=== PATIENT | female | born 1930 | race Caucasian/White ===

== ENCOUNTER 2016-12-20 09:47 | Inpatient (IN) | payer OTHER ==
[~2016-12-20] VITALS: Ht 157.5 cm; Wt 79.7 kg
[2016-12-20] VITALS (13 sets, daily range): BP systolic 114–173; BP diastolic 58–97; PULSE 63–78; TEMP 36.5–36.8; O2SAT 95–98; Ht 157.5 cm; Wt 79.7 kg
[~2016-12-20 09:47] MED LIST: ACET-1311 PO; ALL100 PO; ASPEC325 PO; CRG40 PO; OXYC-57 PO; PANT40TA2 PO; RANITAB33 PO; THYR90TA PO
[2016-12-20] MEDS ORDERED: ADENOSINE IV SOLN 3 MG/ML 2 ML VIAL IV STA ×2 (10:03→10:34)
[2016-12-20 10:15] LABS: COMPLETE YES; EOS % 0.1 %; HEMATOCRIT 37.6 % (37-47); IG% 0.2 %; LYMPH % 6.7 %; LYMPH ABS # 0.62 K/uL (1.2-3.4); MEAN CELL VOLUME 92.8 fL (80-100); MEAN CORPUSCULAR HEMOGLOBIN 30.6 pg (25-34); MEAN PLATELET VOLUME 9.4 fL (7.4-10.4); MONO % 5.1 %; NEUT % 87.9 %; PLATELET COUNT 210 K/uL (130-400); RED BLOOD COUNT 4.05 M/uL (4.2-5.4); WHITE BLOOD COUNT 9.24 K/uL (4.8-10.8)
--- NOTE | 2016-12-20 10:23 | DIAGNOSTIC IMAGING REPORT ---
CHEST ONE VIEW PORTABLE CLINICAL HISTORY: Fever. Tachycardia. Sepsis. COMPARISON STUDY: Chest radiograph January 01, 2015 FINDINGS: Lung volumes are normal. There is no pneumothorax or pleural effusion. Cardiomediastinal silhouette is stable. Mild left basilar opacity favors atelectasis. There is no evidence of pulmonary edema. IMPRESSION: 1. No acute cardiopulmonary findings. 2. Mild left basilar opacity which favors atelectasis. Electronically signed by: Forrest Brandon M.D. 12/20/2016 10:22 AM Dictated Date/Time: 12/20/2016 10:21 AM
[2016-12-20 10:24] LABS: INR 1.1 (0.9-1.1); PARTIAL THROMBOPLASTIN RATIO 0.8; PROTHROMBIN TIME (PATIENT) 11.4 SECONDS (9.0-12.0)
[2016-12-20] MEDS ORDERED: METOPROLOL TARTRATE 1 MG/ML VIAL IV STA ×2 (10:32→11:04)
[2016-12-20 10:38] LABS: ALT/SGPT 186 U/L (12-78); AST/SGOT 406 U/L (15-37); BLOOD UREA NITROGEN 25 mg/dl (7-18); BUN/CREATININE RATIO 19.2 (10-20); CALCIUM 9.2 mg/dl (8.5-10.1); CARBON DIOXIDE 28 mmol/L (21-32); CHLORIDE 104 mmol/L (98-107); GLUCOSE 135 mg/dl (70-99); POTASSIUM 3.5 mmol/L (3.5-5.1); SODIUM 139 mmol/L (136-145)
[2016-12-20] MEDS ORDERED: VTMD PO (10:42)
[2016-12-20] MEDS ORDERED: METO-722 PO (10:42)
[2016-12-20] MEDS ORDERED: CYCL0.052 OP (10:42)
[2016-12-20] MEDS ORDERED: HYDR25TA5 PO (10:42)
[2016-12-20] MEDS ORDERED: ASPI1TAB83 PO (10:42)
[2016-12-20] MEDS ORDERED: ALLO100T PO (10:42)
[2016-12-20 10:50] LABS: ALKALINE PHOSPHATASE 385 U/L (45-117); THYROID STIMULATING HORMONE 0.019 uIu/ml (0.300-4.500)
--- NOTE | 2016-12-20 12:20 | Cardiology Consultation ---
Cardiology Consultation Date of Consultation: December 20, 2016. Requesting Physician: Dr. Garland Reason for Consultation: SVT Pt evaluation today including: conversation w/ patient, conversation w/ family , physical exam, lab review, review of studies, review of inpatient medication list, conversation w/ attending History of Present Illness This is a very pleasant 86-year-old woman who has a long history of hypertension , hypothyroidism and palpitations. She had been evaluated in our office several times in the past but is seen intermittently, she was seen in 2011 and then in 2014 and is scheduled for visit this week with Dr. Sommers. Her palpitations have been recorded as being due to premature beats, typically atrial premature beats and periods of atrial tachycardia. Her symptoms seem to correlate with these rhythms in the past, however based on her records she also describes her heart "pumping really hard" which is less frequent than the palpitations. More recently she has been having difficulty with her gallbladder and surgery has been recommended, in fact she has an appointment with Dr. Kahn today for that. In addition however her palpitations have become increasingly worse and she notices a rapid heart rate (which she also describes as her heart pumping very hard) frequently over the last 6 weeks. She doesn't think she had this before, although based on her record she may have. She was seen in [facility] where she was told she had SVT and she would probably need to have it ablated. She has noticed over the last several days that the palpitations are present more often than they're not, and she came into the emergency room today. In the emergency room she was noted to have supraventricular tachycardia which terminated on several occasions with adenosine but restarted. Intravenous beta- blockade (metoprolol 10 mg) helped somewhat with slowing of the rate down to about 120 bpm from 150 and with spontaneous termination but reinitiation occurring. She does not have lightheadedness or dizziness, has not had presyncope or syncope. She does not have chest discomfort. Past Medical/Surgical History (1) Fracture of femur, distal, left, closed (2) Deep vein thrombosis (3) GERD (gastroesophageal reflux disease) (4) H/O: hysterectomy Family History Diabetes mellitus FH: lung disease FHx: cancer Social History Smoking Status: Never Smoker History of Alcohol Use: No Review of Systems Constitutional: No fever, No weakness, No weight loss Respiratory: No cough, No dyspnea on exertion, No shortness of breath, No wheezing Cardiac: + palpitations, + see HPI, No PND, No chest pain, No edema, No orthopnea Abdomen: + nausea, + vomiting, No GI bleeding, No diarrhea, No pain Female : No problem reported Neurologic: No balance problems, No numbness/tingling, No paralysis, No weakness Heme: No abnormal bleeding/bruising, No clotting problems Endo: No fatigue Skin: No problem reported All Other Systems: Reviewed and Negative Allergies Coded Allergies: Atorvastatin (Verified Adverse Reaction, Unknown, unknown, 02/01/15) Diclofenac (Verified Adverse Reaction, Unknown, unknown, 02/01/15) Levofloxacin (Verified Adverse Reaction, Unknown, unknown, 02/01/15) Rofecoxib (Verified Adverse Reaction, Unknown, unknown, 02/01/15) Physical Exam Vital Signs Past 12 Hours Date Time Temp Pulse Resp B/P Pulse Ox O2 Delivery O2 Flow Rate FiO2 12/20/16 11:46 125 16 134/70 98 Room Air 12/20/16 11:30 72 16 163/72 98 Room Air 12/20/16 11:07 128 142/66 12/20/16 11:05 130 12/20/16 11:04 142/66 12/20/16 11:03 82 12/20/16 11:03 121 18 142/66 97 Room Air 12/20/16 11:00 126 26 125/83 97 12/20/16 10:45 131 22 121/79 99 12/20/16 10:44 138 141/68 12/20/16 10:32 142 12/20/16 10:30 88 25 141/68 98 12/20/16 10:29 104 12/20/16 10:20 141 21 96 Room Air 12/20/16 10:04 147 12/20/16 09:52 36.8 154 20 118/80 97 Room Air Constitutional: General Apperance: heathly-appearing Level of Distress: NAD Psychiatric: Mental Status: active & alert Head: normocephalic Eyes: EOM: EOMI ENMT: normal ENT inspection, hearing grossly normal Neck: supple, no masses Lungs: Respiratory effort: no dyspnea, good air movement Auscultation: breath sounds normal, no wheezing Cardiovascular: Heart Auscultation: RRR, no murmurs, no rubs, no gallops, tachycardia Peripheral Pulses: Bruits: none appreciated Abdomen: Bowel Sounds: normal Inspection & Palpation: soft, no tenderness, guarding & rebound, no masses Musculoskeletal: normal strength (5/5 throughout) Extremities: no edema Neurologic: Cranial Nerves: grossly intact Sensation: grossly intact Data Laboratory Results: Last 24 Hours Test 12/20/16 10:05 White Blood Count 9.24 K/uL Red Blood Count 4.05 M/uL Hemoglobin 12.4 g/dL Hematocrit 37.6 % Mean Corpuscular Volume 92.8 fL Mean Corpuscular Hemoglobin 30.6 pg Mean Corpuscular Hemoglobin Concent 33.0 g/dl Platelet Count 210 K/uL Mean Platelet Volume 9.4 fL Neutrophils (%) (Auto) 87.9 % Lymphocytes (%) (Auto) 6.7 % Monocytes (%) (Auto) 5.1 % Eosinophils (%) (Auto) 0.1 % Basophils (%) (Auto) 0.0 % Neutrophils # (Auto) 8.12 K/uL Lymphocytes # (Auto) 0.62 K/uL Monocytes # (Auto) 0.47 K/uL Eosinophils # (Auto) 0.01 K/uL Basophils # (Auto) 0.00 K/uL RDW Standard Deviation 51.1 fL RDW Coefficient of Variation 15.0 % Immature Granulocyte % (Auto) 0.2 % Immature Granulocyte # (Auto) 0.02 K/uL Prothrombin Time 11.4 SECONDS Prothromb Time International Ratio 1.1 Activated Partial Thromboplast Time 21.5 SECONDS Partial Thromboplastin Ratio 0.8 Sodium Level 139 mmol/L Potassium Level 3.5 mmol/L Chloride Level 104 mmol/L Carbon Dioxide Level 28 mmol/L Anion Gap 7.0 mmol/L Blood Urea Nitrogen 25 mg/dl Creatinine 1.30 mg/dl Est Creatinine Clear Calc Drug Dose 30.8 ml/min Estimated GFR () 43.3 Estimated GFR (Non- 37.4 BUN/Creatinine Ratio 19.2 Random Glucose 135 mg/dl Calcium Level 9.2 mg/dl Total Bilirubin 2.7 mg/dl Direct Bilirubin 1.4 mg/dl Aspartate Amino Transf (AST/SGOT) 406 U/L Alanine Aminotransferase (ALT/SGPT) 186 U/L Alkaline Phosphatase 385 U/L Total Creatine Kinase 39 U/L Creatine Kinase MB < 0.5 ng/ml Creatine Kinase MB Ratio Troponin I 0.042 ng/ml Total Protein 7.4 gm/dl Albumin 3.6 gm/dl Lipase 330 U/L Thyroid Stimulating Hormone (TSH) 0.019 uIu/ml EKG: Several electrocardiograms are available for review. In sinus rhythm the electrocardiogram is essentially normal. 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 Telemetry reviewed: Sinus rhythm alternating with periods of SVT, she is spending 50% or more of her time in SVT. Assessment & Plan #1. 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 She describes having a lot of difficulty over the last 6 weeks , she does not recall episodes before but based on her description and our old records she may have had it before on a more sporadic basis. At this time she is in nearly incessant SVT with difficult to control it, she was on metoprolol as an outpatient (although I'm not sure of the dose) and that clearly did not help. We could try ongoing medical therapy but I think it is highly unlikely that we will get control of her arrhythmia. It is certainly not good for her to have this degree of tachycardia. I think ablation is reasonable. I discussed electrophysiologic study and ablation with her and her family including her and grandson. I described the indications, procedure, risks and alternatives and they would like to proceed. She may have difficulty with her normal AV abdoul pathway leading to this frequent tachycardia, in which case she will have a higher than normal likelihood of a pacemaker and they understand that. We will plan on performing ablation tomorrow afternoon, today I'm going to try to control it with Brevibloc. #2. Palpitations: Historically the majority of her palpitations appear to be premature atrial beats, but perhaps some of it was SVT although she doesn't specifically recall that and I don't think it was recorded. Her palpitations have not been much of a problem lately and generally they do not bother her very much although she notices that. #3. Gallbladder disease: She seems to have concomitant gallbladder disease, and surgery has been recommended. She was to see Dr. Kahn so we will arrange for her to do that while she is here. I think we should perform electrophysiology study and ablation however unless there is a clear contraindication to do so. Thank you for allowing me to participate in her care.
[2016-12-20] MEDS: ESMOLOL / NSS 2,500 MG in PREMIXED NSS 250 ML IV PRN ×2 (12:50→23:21)
--- NOTE | 2016-12-20 12:50 | EMERGENCY ROOM VISIT NOTE ---
History Report prepared by Zackary: Lamar Montiel Under the Supervision of: Dr. Parveen Ivey D.O. First contact with patient: 09:56 Chief Complaint: RAPID HEART RATE Stated Complaint: RAPID HEART BEAT, Nursing Triage Summary: Triage Note: pt reports "my heart has been going fast for the past two weeks." pt reports "my gall bladder is bad and i was having pain last night and threw up." History of Present Illness The patient is a 86 year old female who presents to the Emergency Room with complaints of constant heart racing beginning last night. The patient states that her heart has been racing for the last 2 weeks and she was seen and admitted at [facility] and has an appointment to follow up with Dr. Gao of cardiology to discuss an ablation. She reports that she was told that her heart is "going in the wrong direction" and they put her on Eliquis and gave her medication to slow her heart down. She notes that they took her off of the blood thinner and today her heart is racing again. The patient states that she has no history of atrial fibrillation. She complains of vomiting and chills. She denies any abdominal pain. The patient notes that she recently had an MRI and has a gallstone. She reports that she had an appointment with her doctor today to have her gallbladder checked. The patient notes that she still takes an Aspirin and has not taken her medications today. Source of History: patient Onset: last night Position: other (heart) Quality: other (racing) Timing: constant Associated Symptoms: + nausea, + vomiting, No abdominal pain Review of Systems See HPI for pertinent positives & negatives. A total of 10 systems reviewed and were otherwise negative. Past Medical & Surgical Medical Problems: (1) Deep vein thrombosis (2) Fracture of femur, distal, left, closed (3) Fracture, femur, distal (4) GERD (gastroesophageal reflux disease) (5) History of orthopedic surgery Surgical Problems: (1) H/O: hysterectomy Family History Diabetes mellitus FH: lung disease FHx: cancer Social History Smoking Status: Never Smoker Marital Status: Housing Status: lives with family Occupation Status: retired Current/Historical Medications Scheduled Allopurinol (Zyloprim), 100 MG PO DAILY Aspirin (Aspirin), 81 MG PO DAILY Cyclosporine (Ophth) (Restasis), 1 DROP OP BID Ergocalciferol (Vitamin D), 5,000 UNITS PO WK Hydrochlorothiazide (Hydrochlorothiazide), 25 MG PO DAILY Metoprolol Tartrate (Metoprolol Tartrate), 75 MG PO BID Pantoprazole (Pantoprazole Sodium), 40 MG PO DAILY Thyroid ([place] Thyroid), 90 MG PO DAILY Allergies Coded Allergies: Atorvastatin (Verified Adverse Reaction, Unknown, unknown, 02/01/15) Diclofenac (Verified Adverse Reaction, Unknown, unknown, 02/01/15) Levofloxacin (Verified Adverse Reaction, Unknown, unknown, 02/01/15) Rofecoxib (Verified Adverse Reaction, Unknown, unknown, 02/01/15) Physical Exam Vital Signs Date Time Temp Pulse Resp B/P Pulse Ox O2 Delivery O2 Flow Rate FiO2 12/20/16 11:46 125 16 134/70 98 Room Air 12/20/16 11:30 72 16 163/72 98 Room Air 12/20/16 11:07 128 142/66 12/20/16 11:05 130 12/20/16 11:04 142/66 12/20/16 11:03 82 12/20/16 11:03 121 18 142/66 97 Room Air 12/20/16 11:00 126 26 125/83 97 12/20/16 10:45 131 22 121/79 99 12/20/16 10:44 138 141/68 12/20/16 10:32 142 12/20/16 10:30 88 25 141/68 98 12/20/16 10:29 104 12/20/16 10:20 141 21 96 Room Air 12/20/16 10:04 147 12/20/16 09:52 36.8 154 20 118/80 97 Room Air Physical Exam CONSTITUTIONAL/VITAL SIGNS: Reviewed / noted above. GENERAL: Non-toxic in appearance. INTEGUMENTARY: Warm, dry, and [place]. HEAD: Normocephalic. EYES: without scleral icterus or trauma. ENT/OROPHARYNX: clear and moist. LYMPHADENOPATHY/NECK: Is supple without lymphadenopathy or meningismus. RESPIRATORY: Lungs clear and equal. CARDIOVASCULAR: Tachycardic rate and regular rhythm. GI/ABDOMEN: Soft and nontender. No organomegaly or pulsatile mass. No rebound or guarding. Normal bowel sounds. EXTREMITIES: Warm and well perfused. BACK: No CVA tenderness. NEUROLOGICAL: Intact without focal deficits. PSYCHIATRIC: normal affect. MUSCULOSKELETAL: Normally developed with good muscle tone. Medical Decision & Procedures ER Provider Diagnostic Interpretation: X ray results and stated below per my interpretation and radiology interpretation. CHEST ONE VIEW PORTABLE FINDINGS: Lung volumes are normal. There is no pneumothorax or pleural effusion. Cardiomediastinal silhouette is stable. Mild left basilar opacity favors atelectasis. There is no evidence of pulmonary edema. IMPRESSION: 1. No acute cardiopulmonary findings. 2. Mild left basilar opacity which favors atelectasis. Electronically signed by: Forrest Brandon M.D. 12/20/2016 10:22 AM Dictated Date/Time: 12/20/2016 10:21 AM Laboratory Results 12/20/16 10:05 Red Blood Count 4.05, Mean Corpuscular Volume 92.8, Mean Corpuscular Hemoglobin 30.6, Mean Corpuscular Hemoglobin Concent 33.0, Mean Platelet Volume 9.4, Neutrophils (%) (Auto) 87.9, Lymphocytes (%) (Auto) 6.7, Monocytes (%) (Auto) 5.1, Eosinophils (%) (Auto) 0.1, Basophils (%) (Auto) 0.0, Neutrophils # (Auto) 8.12, Lymphocytes # (Auto) 0.62, Monocytes # (Auto) 0.47, Eosinophils # (Auto) 0.01, Basophils # (Auto) 0.00 12/20/16 10:05 Test 12/20/16 10:05 White Blood Count 9.24 K/uL (4.8-10.8) Red Blood Count 4.05 M/uL (4.2-5.4) Hemoglobin 12.4 g/dL (12.0-16.0) Hematocrit 37.6 % (37-47) Mean Corpuscular Volume 92.8 fL (80-100) Mean Corpuscular Hemoglobin 30.6 pg (25-34) Mean Corpuscular Hemoglobin Concent 33.0 g/dl (32-36) Platelet Count 210 K/uL (130-400) Mean Platelet Volume 9.4 fL (7.4-10.4) Neutrophils (%) (Auto) 87.9 % Lymphocytes (%) (Auto) 6.7 % Monocytes (%) (Auto) 5.1 % Eosinophils (%) (Auto) 0.1 % Basophils (%) (Auto) 0.0 % Neutrophils # (Auto) 8.12 K/uL (1.4-6.5) Lymphocytes # (Auto) 0.62 K/uL (1.2-3.4) Monocytes # (Auto) 0.47 K/uL (0.11-0.59) Eosinophils # (Auto) 0.01 K/uL (0-0.5) Basophils # (Auto) 0.00 K/uL (0-0.2) RDW Standard Deviation 51.1 fL (36.4-46.3) RDW Coefficient of Variation 15.0 % (11.5-14.5) Immature Granulocyte % (Auto) 0.2 % Immature Granulocyte # (Auto) 0.02 K/uL (0.00-0.02) Prothrombin Time 11.4 SECONDS (9.0-12.0) Prothromb Time International Ratio 1.1 (0.9-1.1) Activated Partial Thromboplast Time 21.5 SECONDS (21.0-31.0) Partial Thromboplastin Ratio 0.8 Anion Gap 7.0 mmol/L (3-11) Est Creatinine Clear Calc Drug Dose 30.8 ml/min Estimated GFR () 43.3 Estimated GFR (Non- 37.4 BUN/Creatinine Ratio 19.2 (10-20) Calcium Level 9.2 mg/dl (8.5-10.1) Total Bilirubin 2.7 mg/dl (0.2-1) Direct Bilirubin 1.4 mg/dl (0-0.2) Aspartate Amino Transf (AST/SGOT) 406 U/L (15-37) Alanine Aminotransferase (ALT/SGPT) 186 U/L (12-78) Alkaline Phosphatase 385 U/L (45-117) Total Creatine Kinase 39 U/L (26-192) Creatine Kinase MB < 0.5 ng/ml (0.5-3.6) Creatine Kinase MB Ratio (0-3.0) Troponin I 0.042 ng/ml (0-0.045) Total Protein 7.4 gm/dl (6.4-8.2) Albumin 3.6 gm/dl (3.4-5.0) Lipase 330 U/L (73-393) Thyroid Stimulating Hormone (TSH) 0.019 uIu/ml (0.300-4.500) Laboratory results as stated above per my review. Medications Administered Medications (Trade) Dose Ordered Sig/Yloa Route Start Time Stop Time Status Last Admin Dose Admin Adenosine (Adenosine IV) 6 mg NOW STAT IV 12/20/16 10:03 12/20/16 10:05 DC 12/20/16 10:29 6 MG Metoprolol Tartrate (Lopressor Iv) 5 mg NOW STAT IV 12/20/16 10:32 12/20/16 10:33 DC 12/20/16 10:44 5 MG Adenosine (Adenosine IV) 6 mg NOW STAT IV 12/20/16 10:34 12/20/16 10:35 DC 12/20/16 10:59 6 MG Metoprolol Tartrate (Lopressor Iv) 5 mg NOW STAT IV 12/20/16 11:04 12/20/16 11:05 DC 12/20/16 11:07 5 MG ECG Indication: tachycardia Rate (beats per minute): 146 Rhythm: SVT Findings: no ectopy, other (no acute injury) Change: EKG #2: Sinus Rhythm; 89; no injury or ectopy ED Course 09: Previous medical records were reviewed. The patient was evaluated in room B10. A complete history and physical examination was performed. 1003: Adenosine 6mg IV. 1026: The patient converted into a sinus rhythm. 1032: The patients heart rate is in the 140s again. Her son notes that this happened in [place] as well. 1032: Lopressor IV 5mg IV. 1034: Adenosine 6mg IV. 1103: I reevaluated the patient. After the second Adenosine she converted into sinus rhythm and within 2 minutes converted back into SVT. 1104: Lopressor IV 5mg IV. 1110: Discussed the patient's case with Dr. Mcdowell of Cardiology. He will evaluate the patient. 1156: Discussed the patient's case with Dr. Garland of [facility]. The patient will be evaluated for further treatment and disposition. 1211: On reevaluation, the patient is doing well. I discussed the results and findings with the patient. She verbalized agreement of the treatment plan. I spoke with Dr. Garland of the [facility] Hospitalist Service. The patient will be evaluated for further management and care. Medical Decision the differential was considered includes acute myocardial infarction, acute coronary syndrome, myocarditis, pericarditis, pericardial effusions /tamponade, esophageal perforation, thoracic aortic dissection, pulmonary embolism, pneumonia, pneumothorax, pancreatitis, shingles, acute cholecystitis, perforated abdominal viscus. This is an 86-year-old female who presents to the ED with a chief complaint of nausea, vomiting and shivering all night. She overall just doesn't feel well. She presented to the emergency department this morning and an SVT. She reports having a history of this times one. She has been referred to cardiology this Sunday but has not yet seen Dr. Sommers. The patient is also to see Dr. Kahn today for her gallbladder issue but was unable to see him because she was feeling ill. Her presentation shows SVT. The patient was not having any abdominal discomfort. She had an initial heart rate of 150. The patient broke into a sinus rhythm after 6 mg of IV adenosine but then converted back into the SVT. She was then given 5 mg of IV Lopressor and 6 more milligrams of adenosine. The patient converted into a sinus rhythm but then converted back into an SVT at a heart rate of around 125. She was given 5 mg of additional Lopressor. After this, I consulted with Dr. Bryson. He saw the patient in the emergency department. lV esmolol was started. The patient will go to the ICU. Laboratory studies were elevated with regards to the patient's liver function tests. CBC was unremarkable. Chest x-ray was negative for acute disease. TSH was low. The patient remained stable during her ED stay. Consults Time Called: 1108 Consulting Physician: Dr. Mcdowell - Cardiology Returned Call: [phone] Discussed the patient's case with Dr. Mcdowell of Cardiology. He will evaluate the patient. Additional Consults: Time Called: 1153 Consulted Physician: Dr. Dada Roach Returned Call: [phone] Additional Comments: Discussed the patient's case. The patient will be evaluated for further treatment and disposition. Impression Primary Impression: SVT (supraventricular tachycardia) Additional Impression: Transaminitis gallbladder issue Scribe Attestation The scribe's documentation has been prepared under my direction and personally reviewed by me in its entirety. I confirm that the note above accurately reflects all work, treatment, procedures, and medical decision making performed by me. Departure Information Dispostion Being Evaluated By Hospitalist Marzena Barger M.D. (PCP) Patient Instructions My [facility] Problem Qualifiers
[2016-12-20] MEDS: SODIUM CHLORIDE 0.9% 1000ML 1,000 ML IV ONE (13:15)
[2016-12-20] MEDS ORDERED: CHOL20007 PO (13:37)
--- NOTE | 2016-12-20 13:41 | Gastrointestinal Consultation ---
Gastrointestinal Consultation Date of Consultation: December 20, 2016 Consulting Physician: Andrey Reason for Consultation: elevated LFTs, report of retained stone on MRI at [place] History of Present Illness Patient is a 86 year old female who presents to the ED with reports of tachycardia. This has been occurring intermittently over the past few months. She was seen in [facility] and was told she has SVT and gallstones. GI is consulted for elevated LFTs and report of outpatient MRI significant for choledocholithiasis last week. Patient is asymptotic. She is not having any abdominal pain or discomfort. Denies dark urine, clovis colored stools nausea or pruritus. She has no other GI concerns or complaints. She has never had an EGD or colonoscopy before. Chest XR 12/20/16: Lung volumes are normal. There is no pneumothorax or pleural effusion. Cardiomediastinal silhouette is stable. Mild left basilar opacity favors atelectasis. There is no evidence of pulmonary edema. Past Medical/Surgical History Medical Problems: (1) SVT (supraventricular tachycardia) Status: Acute (2) Transaminitis Status: Acute Past Medical History: HTN, hypothyroidism, history of DVT, cholelithiasis, SVT Past Surgical History: Repair of femur Family History Diabetes mellitus FH: lung disease FHx: cancer Social History Smoking Status: Never Smoker Marital Status: Housing Status: lives with family Occupation Status: retired Allergies Coded Allergies: Atorvastatin (Verified Adverse Reaction, Unknown, unknown, 02/01/15) Diclofenac (Verified Adverse Reaction, Unknown, unknown, 02/01/15) Levofloxacin (Verified Adverse Reaction, Unknown, unknown, 02/01/15) Rofecoxib (Verified Adverse Reaction, Unknown, unknown, 02/01/15) Current Medications Home Meds and Scripts Medications Dose Route/Sig Max Daily Dose Days Date Category Vitamin D3 (Cholecalciferol) 2,000 Unit Tab 5,000 Units PO WK 30 12/20/16 Reported Aspirin 81 Mg Tab 81 Mg PO DAILY 90 12/20/16 Reported Restasis (Cyclosporine (Ophth)) 0.05 % Emu 1 Drop OP BID 12/20/16 Reported Metoprolol Tartrate 75 Mg Tab 75 Mg PO BID 30 12/20/16 Reported Hydrochlorothiazide 25 Mg Tab 25 Mg PO DAILY 12/20/16 Reported Zyloprim (Allopurinol) 100 Mg Tab 100 Mg PO DAILY 12/20/16 Reported [place] Thyroid (Thyroid) 90 Mg Tab 90 Mg PO DAILY 02/01/15 Reported Pantoprazole Sodium (Pantoprazole) 40 Mg Tab 40 Mg PO DAILY 01/01/15 Reported Review of Systems Constitutional: No chills, No fever Respiratory: No cough, No shortness of breath Cardiac: + palpitations, No chest pain, No edema Abdomen: No GI bleeding, No constipation, No diarrhea, No nausea, No pain, No vomiting Physical Exam Date Time Temp Pulse Resp B/P Pulse Ox O2 Delivery O2 Flow Rate FiO2 12/20/16 13:02 73 16 160/62 96 Room Air 12/20/16 12:48 125 12/20/16 11:46 125 16 134/70 98 Room Air 12/20/16 11:30 72 16 163/72 98 Room Air 12/20/16 11:07 128 142/66 12/20/16 11:05 130 12/20/16 11:04 142/66 12/20/16 11:03 82 12/20/16 11:03 121 18 142/66 97 Room Air 12/20/16 11:00 126 26 125/83 97 12/20/16 10:45 131 22 121/79 99 12/20/16 10:44 138 141/68 12/20/16 10:32 142 12/20/16 10:30 88 25 141/68 98 12/20/16 10:29 104 12/20/16 10:20 141 21 96 Room Air 12/20/16 10:04 147 12/20/16 09:52 36.8 154 20 118/80 97 Room Air General Appearance: no apparent distress Eyes: PERRL ENT: hearing grossly normal Neck: supple Respiratory/Chest: lungs clear, normal breath sounds, no respiratory distress, no accessory muscle use Cardiovascular: no edema, no gallop, + tachycardia (with regular rhythm) Abdomen: normal bowel sounds, non tender, soft, no organomegaly, no pulsatile mass Neurologic/Psych: alert, normal mood/affect, oriented x 3 Skin: normal color, no jaundice, warm/dry Laboratory Results Last 24 Hours Test 12/20/16 10:05 White Blood Count 9.24 K/uL Red Blood Count 4.05 M/uL Hemoglobin 12.4 g/dL Hematocrit 37.6 % Mean Corpuscular Volume 92.8 fL Mean Corpuscular Hemoglobin 30.6 pg Mean Corpuscular Hemoglobin Concent 33.0 g/dl Platelet Count 210 K/uL Mean Platelet Volume 9.4 fL Neutrophils (%) (Auto) 87.9 % Lymphocytes (%) (Auto) 6.7 % Monocytes (%) (Auto) 5.1 % Eosinophils (%) (Auto) 0.1 % Basophils (%) (Auto) 0.0 % Neutrophils # (Auto) 8.12 K/uL Lymphocytes # (Auto) 0.62 K/uL Monocytes # (Auto) 0.47 K/uL Eosinophils # (Auto) 0.01 K/uL Basophils # (Auto) 0.00 K/uL RDW Standard Deviation 51.1 fL RDW Coefficient of Variation 15.0 % Immature Granulocyte % (Auto) 0.2 % Immature Granulocyte # (Auto) 0.02 K/uL Prothrombin Time 11.4 SECONDS Prothromb Time International Ratio 1.1 Activated Partial Thromboplast Time 21.5 SECONDS Partial Thromboplastin Ratio 0.8 Sodium Level 139 mmol/L Potassium Level 3.5 mmol/L Chloride Level 104 mmol/L Carbon Dioxide Level 28 mmol/L Anion Gap 7.0 mmol/L Blood Urea Nitrogen 25 mg/dl Creatinine 1.30 mg/dl Est Creatinine Clear Calc Drug Dose 30.8 ml/min Estimated GFR () 43.3 Estimated GFR (Non- 37.4 BUN/Creatinine Ratio 19.2 Random Glucose 135 mg/dl Calcium Level 9.2 mg/dl Total Bilirubin 2.7 mg/dl Direct Bilirubin 1.4 mg/dl Aspartate Amino Transf (AST/SGOT) 406 U/L Alanine Aminotransferase (ALT/SGPT) 186 U/L Alkaline Phosphatase 385 U/L Total Creatine Kinase 39 U/L Creatine Kinase MB < 0.5 ng/ml Creatine Kinase MB Ratio Troponin I 0.042 ng/ml Total Protein 7.4 gm/dl Albumin 3.6 gm/dl Lipase 330 U/L Thyroid Stimulating Hormone (TSH) 0.019 uIu/ml Impression Patient is a 86 year old female with asymptomatic elevation of LFTs and self report of MRCP with obstructive stone - we do not have access to these records tomorrow. She was admitted with SVT - will have cardiac procedures tomorrow. Plan Trend LFTs while admitted Symptomatic management Dietary advances at discretion of cardiology - GI is ok for a clear liquid diet Will need results of US and MRCP prior to ERCP ERCP on 12/22/16 GI to follow, please call with any questions or concerns I saw and evaluated the patient this afternoon. GI is consulted for a positive MRCP done at [facility] last week. She notes having intermitant abdominal pain, nausea and vomitting. She was due to see a general surgeon this week to discuss OP colecystectomy PE: mild icterus Impresson: Patient with CBD stones on a recent MRCP. Will plan for ERCP (after cardiac ablation completed). We have discussed the risks to include bleeding, infection, perforation, pain, pancreatitis and failed cannulation. Plan NPO at MI on Hold NSAIDS if possible to OR on Sunday for ERCP Obtain MRCP report from OSH.
[2016-12-20 13:55] LABS: MAGNESIUM 1.7 mg/dl (1.8-2.4)
--- NOTE | 2016-12-20 14:57 | Critical Care Consultation ---
Critical Care Consultation Date of Consultation: December 20, 2016. Attending Physician: Dr. Shiraz Blackmon Reason for Consultation: Supraventricular tachycardia On esmolol infusion History of Present Illness This is a very pleasant 86-year-old female, with past history of hypertension, hypothyroidism, DVT following femoral fracture, and history of symptomatic PACs , who presented to the emergency department for symptomatic palpitations for the past 6 weeks. She has seen by the [facility] cardiology group in the past and has been followed for history of symptomatic PACs. From a symptomatic standpoint, she describes as noticing these but that they do not cause her any distress, discomfort or disruption in her day-to-day routine they only happen in bursts of 3 seconds and then terminates spontaneously. She has variable sensations including heart running quickly for several beats, or doing her heart skip a beat. This started in approximately 2011, and she was started on Nadolol. She did have a repeat Holter monitoring in 2014, which showed frequent previous PVCs and only rare bursts of SVT. However, for the past 6 weeks she's been having sensation of "my heart pumping really hard", . She denies was that she's having any chest pain, shortness of breath, lightheadedness, dizziness, orthopnea or lower extremity edema.she's she states that it is present at least 50% of the time and comes and goes alternating between 15 minutes on an 15 minutes off. She states that it is more of an annoyance. She recalls having a mild urinary tract infection shortly prior to the onset of her symptoms, but states that she was otherwise well and that her UTI was successfully treated. She phoned her physician today , who advised her to come to the ED for further evaluation. The symptoms are entirely different than her baseline history of palpitations. She has been seen at [facility] twice in the emergency department for these symptoms , though we do not have access to those records at this time. He does state that one of the physicians there stopped her nadolol and started metoprolol instead. Her Eliquis was also discontinued at that time, for unknown reasons. She did have a follow-up Holter monitor again this year in November which showed frequent episodes of PSVT with narrow QRS complexes and short MI interval. She was due to follow up with cardiology this week. She also had an echocardiogram in November of this year which showed an EF of 60% without any significant wall motion abnormalities. Was mild to moderate mitral insufficiency, tricuspid insufficiency, mild pulmonic insufficiency and trace to mild aortic insufficiency. Currently she is also in the process of being evaluated for cholecystectomy. She was due to see Dr. Kahn from [facility] today, but missed the appointment in light of her ED presentation for symptomatic palpitations. A review of all prescription, do show that she had a gallbladder ultrasound in August 2016 which revealed multiple gallstones and a dilated common bile duct, which was suggestive of cholelithiasis. Currently she denies any abdominal pain, jaundice , pruritus, nausea, vomiting, diarrhea or constipation. In the ED she was found to have SVT, at a rate of 150 on arrival. She was treated with adenosine 6 mg 2, Lopressor 5 mg 2 and was started on an Esmolol infusion, which has stabilized her heart rate. She was seen by cardiology in the emergency department who recommended an ablation procedure given the persistent nature of her palpitations. 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) Allergies Coded Allergies: Atorvastatin (Verified Adverse Reaction, Unknown, unknown, 02/01/15) Diclofenac (Verified Adverse Reaction, Unknown, unknown, 02/01/15) Levofloxacin (Verified Adverse Reaction, Unknown, unknown, 02/01/15) Rofecoxib (Verified Adverse Reaction, Unknown, unknown, 02/01/15) Home Medications Scheduled Allopurinol (Zyloprim), 100 MG PO DAILY Aspirin (Aspirin), 81 MG PO DAILY Cholecalciferol (Vitamin D3), 5,000 UNITS PO WK Cyclosporine (Ophth) (Restasis), 1 DROP OP BID Hydrochlorothiazide (Hydrochlorothiazide), 25 MG PO DAILY Metoprolol Tartrate (Metoprolol Tartrate), 75 MG PO BID Pantoprazole (Pantoprazole Sodium), 40 MG PO DAILY Thyroid ([place] Thyroid), 90 MG PO DAILY Current Inpatient Medications Current Inpatient Medications Medications (Trade) Dose Ordered Sig/Yola Route Start Time Stop Time Status Last Admin Dose Admin Esmolol HCl 2500 mg/Prmx 250 ml @ 0 mls/hr Q0M PRN IV 12/20/16 12:45 01/19/17 12:44 12/20/16 12:50 50 MLS/HR Sodium Chloride (Nss 1000ml) 1,000 ml @ 15 mls/hr Q24H ONCE IV 12/21/16 08:00 12/22/16 07:59 Heparin Sodium (Porcine) (Heparin Sq 5000 Unit/0.5ml) 5,000 unit Q12H SQ 12/20/16 20:00 01/19/17 19:59 Acetaminophen (Tylenol Tab) 650 mg Q4H PRN PO 12/20/16 13:15 01/19/17 13:14 Ondansetron HCl 4 mg 4 mg Q6H PRN IV 12/20/16 13:15 01/19/17 13:14 Potassium Chloride/Sodium Chloride (Nss + 20meq KCl 1000ml) 1,000 ml @ 100 mls/hr Q10H IV 12/20/16 13:30 01/19/17 13:29 UNV Allopurinol (Zyloprim Tab) 100 mg DAILY PO 12/21/16 09:00 01/20/17 08:59 Aspirin (Ecotrin Tab) 81 mg DAILY PO 12/21/16 09:00 01/20/17 08:59 Pantoprazole Sodium (Protonix Tab) 40 mg DAILY PO 12/21/16 09:00 01/20/17 08:59 Miscellaneous Information 1 ea 1 ea QS N/A 12/20/16 16:00 01/19/17 15:59 Magnesium Sulfate/ Prmx (Magnesium Sulfate/Premixed D5W) 100 ml @ 100 mls/hr ONE ONCE IV 12/20/16 14:15 12/20/16 15:14 UNV Review of Systems A 10 point review of systems otherwise negative unless stated above in the history of present illness Physical Exam Date Time Temp Pulse Resp B/P Pulse Ox O2 Delivery O2 Flow Rate FiO2 12/20/16 14:18 72 18 145/85 96 Room Air 12/20/16 13:02 73 16 160/62 96 Room Air 12/20/16 12:48 125 12/20/16 11:46 125 16 134/70 98 Room Air 12/20/16 11:30 72 16 163/72 98 Room Air 12/20/16 11:07 128 142/66 12/20/16 11:05 130 12/20/16 11:04 142/66 12/20/16 11:03 82 12/20/16 11:03 121 18 142/66 97 Room Air 12/20/16 11:00 126 26 125/83 97 12/20/16 10:45 131 22 121/79 99 12/20/16 10:44 138 141/68 12/20/16 10:32 142 12/20/16 10:30 88 25 141/68 98 12/20/16 10:29 104 12/20/16 10:20 141 21 96 Room Air 12/20/16 10:04 147 12/20/16 09:52 36.8 154 20 118/80 97 Room Air General Appearance: well-appearing, WD/WN Head: normocephalic, atraumatic Eyes: PERRLA, EOMI ENT: normal nasal exam, normal mouth exam, normal throat exam Neck: normal range of motion, no tenderness, trachea midline Respiratory: breath sounds normal, clear to auscultation, no respiratory distress Cardiovasular: regular rate/rhythm, normal S1S2, no murmur Abdomen: non tender, normal bowel sounds Back: no midline tenderness, no CVA tenderness Upper Extremities: no edema Lower Extremities: no edema Neuro: alert, oriented x 3, normal speech Psychiatric: normal affect Laboratory Results Last 24 Hours Test 12/20/16 10:05 White Blood Count 9.24 K/uL Red Blood Count 4.05 M/uL Hemoglobin 12.4 g/dL Hematocrit 37.6 % Mean Corpuscular Volume 92.8 fL Mean Corpuscular Hemoglobin 30.6 pg Mean Corpuscular Hemoglobin Concent 33.0 g/dl Platelet Count 210 K/uL Mean Platelet Volume 9.4 fL Neutrophils (%) (Auto) 87.9 % Lymphocytes (%) (Auto) 6.7 % Monocytes (%) (Auto) 5.1 % Eosinophils (%) (Auto) 0.1 % Basophils (%) (Auto) 0.0 % Neutrophils # (Auto) 8.12 K/uL Lymphocytes # (Auto) 0.62 K/uL Monocytes # (Auto) 0.47 K/uL Eosinophils # (Auto) 0.01 K/uL Basophils # (Auto) 0.00 K/uL RDW Standard Deviation 51.1 fL RDW Coefficient of Variation 15.0 % Immature Granulocyte % (Auto) 0.2 % Immature Granulocyte # (Auto) 0.02 K/uL Prothrombin Time 11.4 SECONDS Prothromb Time International Ratio 1.1 Activated Partial Thromboplast Time 21.5 SECONDS Partial Thromboplastin Ratio 0.8 Sodium Level 139 mmol/L Potassium Level 3.5 mmol/L Chloride Level 104 mmol/L Carbon Dioxide Level 28 mmol/L Anion Gap 7.0 mmol/L Blood Urea Nitrogen 25 mg/dl Creatinine 1.30 mg/dl Est Creatinine Clear Calc Drug Dose 30.8 ml/min Estimated GFR () 43.3 Estimated GFR (Non- 37.4 BUN/Creatinine Ratio 19.2 Random Glucose 135 mg/dl Calcium Level 9.2 mg/dl Magnesium Level 1.7 mg/dl Total Bilirubin 2.7 mg/dl Direct Bilirubin 1.4 mg/dl Aspartate Amino Transf (AST/SGOT) 406 U/L Alanine Aminotransferase (ALT/SGPT) 186 U/L Alkaline Phosphatase 385 U/L Total Creatine Kinase 39 U/L Creatine Kinase MB < 0.5 ng/ml Creatine Kinase MB Ratio Troponin I 0.042 ng/ml Total Protein 7.4 gm/dl Albumin 3.6 gm/dl Lipase 330 U/L Thyroid Stimulating Hormone (TSH) 0.019 uIu/ml Free Thyroxine 1.25 ng/dl Free Triiodothyronine 2.93 pg/ml Assessment & Plan (1) History of DVT (deep vein thrombosis) (2) Premature atrial contractions (3) Paroxysmal supraventricular tachycardia (4) Hypomagnesemia (5) Gout (6) Hypertension (7) Cholelithiasis (8) Hypothyroidism 86 year old female, presents with symptomatic paroxysmal SVT, converted to sinus rhythm after treatment with esmolol. She is admitted for ablation procedure, with or without elective cholecystectomy. Her problem list includes - History of symptomatic premature atrial contractions - AVRT, rate controlled - Hypertension - Hypothyroidism - Gout - Choledocholithiasis - History of left femoral fracture with secondary DVT - GERD Our plan for her is as follows: NEUROLOGICAL - GCS: 15 - Alert and oriented 3 CARDIOVASCULAR - BP: 140-160 systolic no evidence of hemodynamic compromise from SVT - Vasopressor support: None - IV Fluids: None Symptomatic AVRT - The patient is currently in normal sinus rhythm rate of 70, rate controlled on Esmolol infusion - Patient responded to esmolol - Need to monitor on telemetry, treat when necessary - Cardiology is consulted; recommendations appreciated; tentative plan to do ablation tomorrow morning Hypertension - Continue hydrochlorothiazide - Continue metoprolol RESPIRATORY - Respiratory status is currently stable. RR 16, SPO2 96% on room air - No known chronic pulmonary conditions that require active monitoring or treatment at this time GASTROINTESTINAL - Diet: AHA diet Nothing by mouth after midnight GERD Continue pantoprazole Choledocholithiasis - As noted from ultrasound RUQ from August 2016; follow-up MRCP done on 2016, report is been predicted from all strips and is in the chart; confirms diagnosis of choledocholithiasis - Surgery has been consultative - Transaminitis AST 400s/ADL T1 100s, elevated alkaline phosphatase and both T/ D bilirubin; suggestive of obstructive pattern secondary to biliary stones - GI has been consulted for ERCP; recommendations are appreciated - Surgery is also consulted for evaluation for cholecystectomy - Bowel regimen: Monitor for bowel movements RENAL//ENDOCRINE - Fluid Balance: Monitor daily I's and O's - Electrolytes: Hypomagnesemia: Mag 1.7; will treat with 2 g of mag sulfate, with hope of achieving some degree of myocardial member and stabilization Borderline Hypokalemia: K 3.5, on a beta ayse infusion which can further drop K; will give 40 mEq KCl now and supplement K in maintenance fluids starting at midnight - IV Fluids: We will start on NSS + 20 KCl at 100 ml/hr starting midnight - No history diabetes Hypothyroidism - Continue Synthroid HEMATOLOGY/INFECTIOUS DISEASE HEME/ID - Afebrile, no leukocytosis, no evidence of active infection - DVT Prophylaxis: The patient is high risk for DVT, given previous history Patient is for procedure tomorrow; therefore we'll administer subcutaneous UFH until procedure CODE STATUS - Full Code DISPOSITION - OT/PT: Patient currently has excellent ambulatory status at home; I'll withhold on OT and PT consult at this time unless there is evidence from her admission that she is weak and requires intervention - ICU for cardiac monitoring Resident Physician Supervision Note: Dr. Mcdonald was resident physician during care of patient. I separately evaluated patient and did history and exam. I discussed the case with the resident and generally agree with the findings and plan. On esmolol, planned ablation tomorrow, possible ERCP on sunday with GI, and seen and discussed with General Surgery. Documented By: Shiraz Blackmon DO
[2016-12-20] MEDS ORDERED: NSS + 20MEQ KCL 1000ML 1,000 ML IV SCH ×2 (15:17→23:59)
[2016-12-20] MEDS: MAGNESIUM SULFATE 1GM / D5W 1 GM in PREMIXED IN D5W 100 ML IV SCH ×2 (15:39→17:14)
[2016-12-20] MEDS: RESTASIS-ORDER AWAITING ACTION SCH ×2 (16:00→23:00)
[2016-12-20] MEDS ORDERED: PNEUMOCOCCAL POLYSACCHARIDES 25 MCG/0.5 ML VIAL/SYR IM. ONE (17:00)
[2016-12-20] MEDS ORDERED: PNEUMOCOCCAL ADMINISTRATION CHARGE ONE (17:00)
--- NOTE | 2016-12-20 17:10 | History and Physical ---
History & Physical Date & Time of Service: December 20, 2016 at 13:44 Chief Complaint: Nausea, Vomiting, Palpitations Primary Care Physician: Marzena Viveros M.D. History of Present Illness 86 year old female who presents to the ER with nausea, vomiting, and palpitations. Patient reports she has been sick for the past month and half. She was admitted to [facility] last month for SVT. She reports her Nadolol was changed to metoprolol. She was also found to have elevated LFTs. She reports she had a "MRI of the abdomen" and "has a gallstone stuck in the duct." She was scheduled to see general surgery today. She reports continued to heart palpitations and pounding every day. She denies chest pain or pressure. No shortness of breath, lightheadedness, dizziness, or syncopal events. Last night she reports she felt chilled and had three episodes of vomiting. She denies hematemesis or coffee ground emesis. She reports some mild epigastric pain from vomiting but reports she otherwise has not had any abdominal pain. She reports the palpitations were severe this morning. She denies diarrhea. She reports she has been sometimes getting nauseous after eating. In the ER, patient was found to be in SVT with HR in the 160s. She was given Adenosine x 2 and metoprolol x 2 with short term improvement in HR. She was seen by Dr. Mcdowell who has placed the patient on an Esmolol drip. HR at the time of my exam is in the 70s. Labs show a transaminitis. WBC normal and patient is afebrile. 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 from surgery, completed anticoagulation therapy Status: Chronic (2) Femur fracture, left Permanent Comment: s/p repair Status: Chronic (3) HTN (hypertension) Status: Chronic (4) Hypothyroidism Status: Chronic Surgical Problems: (1) H/O: hysterectomy Status: Chronic Family History non contributory due to patient's advanced age Social History Smoking Status: Never Smoker Alcohol Use: none Marital Status: Multi-Drug Resistant Organisms History of MDRO: No Allergies Coded Allergies: Atorvastatin (Verified Adverse Reaction, Unknown, unknown, 02/01/15) Diclofenac (Verified Adverse Reaction, Unknown, unknown, 02/01/15) Levofloxacin (Verified Adverse Reaction, Unknown, unknown, 02/01/15) Rofecoxib (Verified Adverse Reaction, Unknown, unknown, 02/01/15) Home Medications Scheduled Allopurinol (Zyloprim), 100 MG PO DAILY Aspirin (Aspirin), 81 MG PO DAILY Cholecalciferol (Vitamin D3), 5,000 UNITS PO WK Cyclosporine (Ophth) (Restasis), 1 DROP OP BID Hydrochlorothiazide (Hydrochlorothiazide), 25 MG PO DAILY Metoprolol Tartrate (Metoprolol Tartrate), 75 MG PO BID Pantoprazole (Pantoprazole Sodium), 40 MG PO DAILY Thyroid (Humbird Thyroid), 90 MG PO DAILY Review of Systems ROS per HPI, all other systems reviewed and negative Physical Exam Vital Signs Date Time Temp Pulse Resp B/P Pulse Ox O2 Delivery O2 Flow Rate FiO2 12/20/16 13:02 73 16 160/62 96 Room Air 12/20/16 12:48 125 12/20/16 11:46 125 16 134/70 98 Room Air 12/20/16 11:30 72 16 163/72 98 Room Air 12/20/16 11:07 128 142/66 12/20/16 11:05 130 12/20/16 11:04 142/66 12/20/16 11:03 82 12/20/16 11:03 121 18 142/66 97 Room Air 12/20/16 11:00 126 26 125/83 97 12/20/16 10:45 131 22 121/79 99 12/20/16 10:44 138 141/68 12/20/16 10:32 142 12/20/16 10:30 88 25 141/68 98 12/20/16 10:29 104 12/20/16 10:20 141 21 96 Room Air 12/20/16 10:04 147 12/20/16 09:52 36.8 154 20 118/80 97 Room Air General Appearance: no apparent distress Head: normocephalic Eyes: normal inspection ENT: hearing grossly normal Neck: supple, no JVD Respiratory/Chest: lungs clear, normal breath sounds, no respiratory distress Cardiovascular: regular rate, rhythm, no edema, normal peripheral pulses Abdomen/GI: normal bowel sounds, non tender, soft, + tenderness (mild epigastric) Extremities/Musculoskelatal: normal inspection, no calf tenderness Neurologic/Psych: no motor/sensory deficits, alert, normal mood/affect, oriented x 3 Skin: normal color, warm/dry Diagnostics Laboratory Results Results Past 24 Hours Test 12/20/16 10:05 Range/Units White Blood Count 9.24 4.8-10.8 K/uL Red Blood Count 4.05 4.2-5.4 M/uL Hemoglobin 12.4 12.0-16.0 g/dL Hematocrit 37.6 37-47 % Mean Corpuscular Volume 92.8 80-100 fL Mean Corpuscular Hemoglobin 30.6 25-34 pg Mean Corpuscular Hemoglobin Concent 33.0 32-36 g/dl Platelet Count 210 130-400 K/uL Mean Platelet Volume 9.4 7.4-10.4 fL Neutrophils (%) (Auto) 87.9 % Lymphocytes (%) (Auto) 6.7 % Monocytes (%) (Auto) 5.1 % Eosinophils (%) (Auto) 0.1 % Basophils (%) (Auto) 0.0 % Neutrophils # (Auto) 8.12 1.4-6.5 K/uL Lymphocytes # (Auto) 0.62 1.2-3.4 K/uL Monocytes # (Auto) 0.47 0.11-0.59 K/uL Eosinophils # (Auto) 0.01 0-0.5 K/uL Basophils # (Auto) 0.00 0-0.2 K/uL RDW Standard Deviation 51.1 36.4-46.3 fL RDW Coefficient of Variation 15.0 11.5-14.5 % Immature Granulocyte % (Auto) 0.2 % Immature Granulocyte # (Auto) 0.02 0.00-0.02 K/uL Prothrombin Time 11.4 9.0-12.0 SECONDS Prothromb Time International Ratio 1.1 0.9-1.1 Activated Partial Thromboplast Time 21.5 21.0-31.0 SECONDS Partial Thromboplastin Ratio 0.8 Sodium Level 139 136-145 mmol/L Potassium Level 3.5 3.5-5.1 mmol/L Chloride Level 104 98-107 mmol/L Carbon Dioxide Level 28 21-32 mmol/L Anion Gap 7.0 3-11 mmol/L Blood Urea Nitrogen 25 7-18 mg/dl Creatinine 1.30 0.60-1.20 mg/dl Est Creatinine Clear Calc Drug Dose 30.8 ml/min Estimated GFR () 43.3 Estimated GFR (Non- 37.4 BUN/Creatinine Ratio 19.2 10-20 Random Glucose 135 70-99 mg/dl Calcium Level 9.2 8.5-10.1 mg/dl Total Bilirubin 2.7 0.2-1 mg/dl Direct Bilirubin 1.4 0-0.2 mg/dl Aspartate Amino Transf (AST/SGOT) 406 15-37 U/L Alanine Aminotransferase (ALT/SGPT) 186 12-78 U/L Alkaline Phosphatase 385 45-117 U/L Total Creatine Kinase 39 26-192 U/L Creatine Kinase MB < 0.5 0.5-3.6 ng/ml Creatine Kinase MB Ratio 0-3.0 Troponin I 0.042 0-0.045 ng/ml Total Protein 7.4 6.4-8.2 gm/dl Albumin 3.6 3.4-5.0 gm/dl Lipase 330 73-393 U/L Thyroid Stimulating Hormone (TSH) 0.019 0.300-4.500 uIu/ml Diagnostic Radiology CXR IMPRESSION: 1. No acute cardiopulmonary findings. 2. Mild left basilar opacity which favors atelectasis. Impression Assessment and Plan SVT - admit to ICU - patient reports history of palpitations for the past 1 1/2 months - was admitted to [facility] for SVT and beta ayse was changed from Nadolol to metoprolol per patient report; was also found to have elevated LFTs underwent MRCP that showed choledocholithiasis; also per patient report. She was to be seen by surgery as an outpatient today. She developed nausea, vomiting, and severe palpitations last evening. In the ER, found to be in SVT with rates in the 160s and did not have improvement with adenosine x 2 and metoprolol x 2. Was placed on esmolol drip now with improvement in heart rate - was evaluated by Dr. Mcodwell in the ER - planning for ablation tomorrow - TSH noted to be low - check T3/T4 TRANSAMINITIS, LIKELY CHOLEDOCHOLITHIASIS - obtain MRCP report and most recent LFTs from [facility] - do not suspect cholecystitis or cholangitis - afebrile with normal WBC; only has mild epigastric pain from vomiting - will check RUQ US - case discussed with Dr. Gutierrez, general surgery and SAMUEL Verma, GI - likely will need ERCP/cholecystectomy once cardiac issues have resolved HTN - BP controlled, holding metoprolol while on esmolol drip - also holding HCTZ while receiving IVF HYPOTHYROIDISM - low TSH noted - check T3 and T4 - hold Humbird Thyroid for now DVT PROPHYLAXIS - SQ Heparin CODE STATUS - Patient is a full code as per my discussion with her. DISPO - In my clinical judgment this beneficiary meets acute admission criteria, established by [facility], that includes being hospitalized through two midnights. Attending Addendum; The patient was seen and examined Admitted with palpitation s and one episode of Fever with Chills last night H/O Gallstones with Abnormal LFTs Was evaluated by Vice President Of Customer Service in ER O/E No apparent distress Hemodynamically stable with Heart rate ~110s Chest -clear Heart-regular Abdomen-Mildly tender RUQ No guarding Winston's sign negative Extremities-negative labs and Imaging studies were reviewed Agree with the assessment and plan Dr Juan Diego Garland VTE Prophylaxis VTE Risk Assessment Done? Y/N: Yes Risk Level: Moderate
--- NOTE | 2016-12-20 18:43 | DIAGNOSTIC IMAGING REPORT ---
ABDOMINAL ULTRASOUND, RIGHT UPPER QUADRANT HISTORY: Pain r/o Cholecystitis. COMPARISON: None. FINDINGS: Pancreas: The pancreas demonstrates a normal echotexture. Liver: Unremarkable. Gallbladder: Gallstones with a small amount of sludge. CBD: 8 to 10 mm Right kidney: No hydronephrosis. IMPRESSION: Gallstones combine with gallbladder sludge. Moderate prominence of the common bile duct. Electronically signed by: Morris Vázquez M.D. 12/20/2016 6:42 PM Dictated Date/Time: 12/20/2016 6:32 PM
[2016-12-20] MEDS: ACETAMINOPHEN 325 MG TAB PO PRN (20:01)
[2016-12-20] MEDS: HEPARIN SOD 5000 UNIT/0.5 ML CARP SQ SCH (21:08)
[2016-12-20] MEDS ORDERED: POTASSIUM CHLORIDE 10 MEQ TABCR PO STA (22:54)
[2016-12-21] VITALS (29 sets, daily range): BP systolic 115–180; BP diastolic 42–94; PULSE 57–147; TEMP 36.4–36.8; O2SAT 92–98
[2016-12-21 06:30] LABS: HEMATOCRIT 30.7 % (37-47); MEAN CELL VOLUME 94.5 fL (80-100); MEAN CORPUSCULAR HEMOGLOBIN 31.7 pg (25-34); MEAN CORPUSCULAR HGB CONC 33.6 g/dl (32-36); MEAN PLATELET VOLUME 9.3 fL (7.4-10.4); PLATELET COUNT 153 K/uL (130-400); RED BLOOD COUNT 3.25 M/uL (4.2-5.4); WHITE BLOOD COUNT 3.86 K/uL (4.8-10.8)
[2016-12-21 06:55] LABS: BUN/CREATININE RATIO 19.9 (10-20); CREATININE 1.1 mg/dl (0.60-1.20); MAGNESIUM 2.3 mg/dl (1.8-2.4); PHOSPHORUS 2.5 mg/dl (2.5-4.9); POTASSIUM 3.9 mmol/L (3.5-5.1)
[2016-12-21 07:02] LABS: CALCIUM 8.9 mg/dl (8.5-10.1)
--- NOTE | 2016-12-21 07:46 | Critical Care Progress Note ---
Critical Care Progress Note Date of Service December 21, 2016. ICU Day ICU Day Number: [address] Blackmon Subjective No complaints, pleasant Objective General Appearance: well-appearing, WD/WN Head: normocephalic, atraumatic Eyes: PERRLA, EOMI ENT: normal nasal exam, normal mouth exam, normal throat exam Neck: normal range of motion, no tenderness, trachea midline Respiratory: breath sounds normal, clear to auscultation, no respiratory distress Cardiovasular: regular rate/rhythm, normal S1S2, no murmur Abdomen: non tender, normal bowel sounds Back: no midline tenderness, no CVA tenderness Upper Extremities: no edema Lower Extremities: no edema Neuro: alert, oriented x 3, normal speech Psychiatric: normal affect Current SOFA Score SOFA Score Response (Comments) Value PaO2/FiO2 (mmHg) < 400 1 SaO2 / FIO2 221 - 301 1 [place] Coma Score 15 0 Level of Hypotension No Hypotension 0 Total 2 Previous SOFA Scores SOFA is 0 Assessment & Plan 86 year old female, presents with symptomatic paroxysmal SVT, converted to sinus rhythm after treatment with esmolol. She is admitted for ablation procedure, with or without elective cholecystectomy. Her problem list includes - History of symptomatic premature atrial contractions - AVRT, rate controlled - Hypertension - Hypothyroidism - Gout - Choledocholithiasis - History of left femoral fracture with secondary DVT - GERD Our plan for her is as follows: NEUROLOGICAL - GCS: 15 - Alert and oriented 3 CARDIOVASCULAR Symptomatic AVRT - The patient is currently in normal sinus rhythm rate of 70, rate controlled on Esmolol infusion - Patient responded to esmolol - Need to monitor on telemetry, treat when necessary - Cardiology is consulted; recommendations appreciated; tentative plan to do ablation this morning Hypertension - Continue hydrochlorothiazide - Continue metoprolol RESPIRATORY - Respiratory status is currently stable. RR 16, SPO2 96% on room air - No known chronic pulmonary conditions that require active monitoring or treatment at this time GASTROINTESTINAL - Currently NPO GERD Continue pantoprazole Choledocholithiasis - As noted from ultrasound RUQ from August 2016; follow-up MRCP done on 2016, report is been predicted from all strips and is in the chart; confirms diagnosis of choledocholithiasis - Surgery has been consultative - Transaminitis AST 400s/ADL T1 100s, elevated alkaline phosphatase and both T/ D bilirubin; suggestive of obstructive pattern secondary to biliary stones - GI has been consulted for ERCP; recommendations are appreciated - Surgery is also consulted for evaluation for cholecystectomy RENAL//ENDOCRINE relative renal insufficiency made need renal follow-up as outpatient. - Fluid Balance: Monitor daily I's and O's - Electrolytes: Hypomagnesemia: Resolved Borderline Hypokalemia: resolved - IV Fluids: While NPO NSS + 20 KCl at 100 ml/hr - No history diabetes Hypothyroidism - Continue Synthroid HEMATOLOGY/INFECTIOUS DISEASE HEME/ID - Afebrile, no leukocytosis, no evidence of active infection - DVT Prophylaxis: The patient is high risk for DVT, given previous history CODE STATUS - Full Code DISPOSITION - OT/PT: Patient currently has excellent ambulatory status at home; I'll withhold on OT and PT consult at this time unless there is evidence from her admission that she is weak and requires intervention - ICU for cardiac monitoring Consults & Procedures Consultants: GI General Surgery Cardiology Procedures: NA Data Medications: Current Inpatient Medications Medications (Trade) Dose Ordered Sig/Yola Route Start Time Stop Time Status Last Admin Dose Admin Esmolol HCl 2500 mg/Prmx 250 ml @ 0 mls/hr Q0M PRN IV 12/20/16 12:45 12/21/16 12:00 12/20/16 23:21 23.7 MLS/HR Sodium Chloride (Nss 1000ml) 1,000 ml @ 15 mls/hr Q24H ONCE IV 12/21/16 08:00 12/22/16 07:59 Heparin Sodium (Porcine) (Heparin Sq 5000 Unit/0.5ml) 5,000 unit Q12H SQ 12/20/16 20:00 01/19/17 19:59 12/20/16 21:08 5,000 UNIT Acetaminophen (Tylenol Tab) 650 mg Q4H PRN PO 12/20/16 13:15 01/19/17 13:14 12/20/16 20:01 650 MG Ondansetron HCl (Zofran Inj) 4 mg Q6H PRN IV 12/20/16 13:15 01/19/17 13:14 Allopurinol (Zyloprim Tab) 100 mg DAILY PO 12/21/16 09:00 01/20/17 08:59 Aspirin (Ecotrin Tab) 81 mg DAILY PO 12/21/16 09:00 01/20/17 08:59 Pantoprazole Sodium (Protonix Tab) 40 mg DAILY PO 12/21/16 09:00 01/20/17 08:59 Miscellaneous Information 1 ea 1 ea QS N/A 12/20/16 16:00 01/19/17 15:59 Potassium Chloride/Sodium Chloride (Nss + 20meq KCl 1000ml) 1,000 ml @ 100 mls/hr Q10H IV 12/20/16 23:59 01/19/17 23:58 12/20/16 23:59 100 MLS/HR Miscellaneous (Stop Order) 1 ea ONE ONCE N/A 12/21/16 12:00 12/21/16 12:01 Hydrochlorothiazide (Hydrochlorothiazide Tab) 25 mg DAILY PO 12/21/16 09:00 01/20/17 08:59 Thyroid ([place] Thyroid Tab) 90 mg DAILY PO 12/21/16 09:00 01/20/17 08:59 I & O: 24-Hour Column 12/21/16 08:00 Intake Total 1967 ml Output Total 100 ml Balance 1867 ml Vital Signs: Date Time Temp Pulse Resp B/P Pulse Ox O2 Delivery O2 Flow Rate FiO2 12/21/16 06:28 36.5 62 16 156/63 97 Room Air 12/21/16 05:30 62 16 156/63 97 12/21/16 05:15 62 14 159/74 96 12/21/16 05:01 68 21 180/58 97 12/21/16 05:00 86 26 12/21/16 04:45 57 16 130/55 95 12/21/16 04:30 71 14 128/60 96 12/21/16 04:15 69 22 135/50 96 12/21/16 04:00 67 14 134/62 98 12/21/16 04:00 36.5 67 14 134/62 98 12/21/16 04:00 98 Room Air 12/21/16 02:30 69 20 138/44 98 12/21/16 02:15 73 22 126/61 96 12/21/16 02:00 58 19 115/42 96 12/21/16 01:45 63 14 121/47 96 12/21/16 01:30 63 15 145/56 96 12/21/16 01:15 62 15 146/65 96 12/21/16 01:00 59 14 148/65 96 12/21/16 00:45 64 19 159/76 98 5/11/17 00:30 62 14 151/63 96 12/21/16 00:15 59 12 158/68 97 12/21/16 00:00 63 13 167/69 98 12/20/16 23:43 36.5 70 16 114/68 96 Room Air 12/20/16 23:39 96 Room Air 12/20/16 23:35 96 Room Air 12/20/16 22:00 63 16 124/60 96 Room Air 12/20/16 20:00 97 Room Air 12/20/16 20:00 36.8 76 18 157/97 97 Room Air 12/20/16 18:00 66 17 128/58 95 Room Air 12/20/16 16:45 68 24 173/70 98 12/20/16 16:25 67 24 159/70 97 12/20/16 16:00 36.7 69 18 97 12/20/16 16:00 97 Room Air 12/20/16 15:45 67 18 132/83 96 12/20/16 15:31 69 17 130/72 97 12/20/16 15:28 78 20 144/63 96 12/20/16 14:50 36.5 68 15 148/59 96 Room Air 12/20/16 14:18 72 18 145/85 96 Room Air 12/20/16 14:00 74 16 121/58 97 Room Air 12/20/16 13:45 79 18 144/60 95 Room Air 12/20/16 13:30 71 16 130/70 96 Room Air 12/20/16 13:15 71 18 134/75 95 Room Air 12/20/16 13:02 73 16 160/62 96 Room Air 12/20/16 12:50 125 18 128/84 96 Room Air 12/20/16 12:48 125 12/20/16 11:46 125 16 134/70 98 Room Air 12/20/16 11:30 72 16 163/72 98 Room Air 12/20/16 11:07 128 142/66 12/20/16 11:05 130 12/20/16 11:04 142/66 12/20/16 11:03 82 12/20/16 11:03 121 18 142/66 97 Room Air 12/20/16 11:00 126 26 125/83 97 12/20/16 10:45 131 22 121/79 99 12/20/16 10:44 138 141/68 12/20/16 10:32 142 12/20/16 10:30 88 25 141/68 98 12/20/16 10:29 104 12/20/16 10:20 141 21 96 Room Air 12/20/16 10:04 147 12/20/16 09:52 36.8 154 20 118/80 97 Room Air Laboratory Results: EKG: NSR normal axis and intervals, normal st segments, normal EKG from 21 dec 2016 Last 24 Hours Test 12/20/16 10:05 12/20/16 16:43 12/21/16 05:25 White Blood Count 9.24 K/uL 3.86 K/uL Red Blood Count 4.05 M/uL 3.25 M/uL Hemoglobin 12.4 g/dL 10.3 g/dL Hematocrit 37.6 % 30.7 % Mean Corpuscular Volume 92.8 fL 94.5 fL Mean Corpuscular Hemoglobin 30.6 pg 31.7 pg Mean Corpuscular Hemoglobin Concent 33.0 g/dl 33.6 g/dl Platelet Count 210 K/uL 153 K/uL Mean Platelet Volume 9.4 fL 9.3 fL Neutrophils (%) (Auto) 87.9 % Lymphocytes (%) (Auto) 6.7 % Monocytes (%) (Auto) 5.1 % Eosinophils (%) (Auto) 0.1 % Basophils (%) (Auto) 0.0 % Neutrophils # (Auto) 8.12 K/uL Lymphocytes # (Auto) 0.62 K/uL Monocytes # (Auto) 0.47 K/uL Eosinophils # (Auto) 0.01 K/uL Basophils # (Auto) 0.00 K/uL RDW Standard Deviation 51.1 fL 52.8 fL RDW Coefficient of Variation 15.0 % 15.2 % Immature Granulocyte % (Auto) 0.2 % Immature Granulocyte # (Auto) 0.02 K/uL Prothrombin Time 11.4 SECONDS Prothromb Time International Ratio 1.1 Activated Partial Thromboplast Time 21.5 SECONDS Partial Thromboplastin Ratio 0.8 Sodium Level 139 mmol/L 143 mmol/L Potassium Level 3.5 mmol/L 3.9 mmol/L Chloride Level 104 mmol/L 108 mmol/L Carbon Dioxide Level 28 mmol/L 26 mmol/L Anion Gap 7.0 mmol/L 9.0 mmol/L Blood Urea Nitrogen 25 mg/dl 22 mg/dl Creatinine 1.30 mg/dl 1.10 mg/dl Est Creatinine Clear Calc Drug Dose 30.8 ml/min 36.1 ml/min Estimated GFR () 43.3 53.0 Estimated GFR (Non- 37.4 45.7 BUN/Creatinine Ratio 19.2 19.9 Random Glucose 135 mg/dl 94 mg/dl Calcium Level 9.2 mg/dl 8.9 mg/dl Magnesium Level 1.7 mg/dl 2.3 mg/dl Total Bilirubin 2.7 mg/dl 1.6 mg/dl Direct Bilirubin 1.4 mg/dl 0.6 mg/dl Aspartate Amino Transf (AST/SGOT) 406 U/L 136 U/L Alanine Aminotransferase (ALT/SGPT) 186 U/L 108 U/L Alkaline Phosphatase 385 U/L 267 U/L Total Creatine Kinase 39 U/L Creatine Kinase MB < 0.5 ng/ml Creatine Kinase MB Ratio Troponin I 0.042 ng/ml 0.273 ng/ml Total Protein 7.4 gm/dl 5.6 gm/dl Albumin 3.6 gm/dl 2.8 gm/dl Lipase 330 U/L Thyroid Stimulating Hormone (TSH) 0.019 uIu/ml Free Thyroxine 1.25 ng/dl Free Triiodothyronine 2.93 pg/ml Bedside Glucose 107 mg/dl Phosphorus Level 2.5 mg/dl
[2016-12-21] MEDS: HEPARIN SOD 5000 UNIT/0.5 ML CARP SQ SCH ×2 (08:00→20:37)
[2016-12-21] MEDS: RESTASIS-ORDER AWAITING ACTION SCH ×2 (08:00→17:38)
[2016-12-21] MEDS: HYDROCHLOROTHIAZIDE 25 MG TAB PO SCH (08:21)
[2016-12-21] MEDS: ALLOPURINOL 100 MG TAB PO SCH (08:22)
[2016-12-21] MEDS: ASPIRIN 81 MG ECTAB PO SCH (08:22)
[2016-12-21] MEDS: ARMOUR THYROID 30 MG TAB PO SCH (08:22)
[2016-12-21] MEDS: PANTOprazole SOD 40 MG TAB PO SCH (08:22)
--- NOTE | 2016-12-21 08:26 | Progress Note ---
Internal Med Progress Note Date of Service: December 21, 2016. Provider Documentation: SUBJECTIVE: Seen and examined at bedside. States feeling much better today. Denies chest pain, SOB, palpitations, dizziness, abd pain, Nausea or vomiting. Planned for ablation today. Offers no complaints. On Esmolol ggt. currently in Sinus. OBJECTIVE: Vital Signs-as noted below Physical Exam: General Appearance:Moderately built and nourished, no apparent distress Head: normocephalic, Atraumatic Eyes: normal inspection, EOMI, PERRL Neck: supple, Trachea midline Respiratory/Chest: Normal breath sounds, CTA Cardiovascular: S1, S2, No murmur Abdomen/GI:Soft, mild RUQ tender, Bowel sounds present Extremities/Musculoskelatal:normal inspection, Trace edema Neurologic/Psych:AAOX3, grossly no focal neurological deficits Skin: normal color, warm Lab data as noted below. ASSESSMENT & PLAN: SVT Presented with H/O palpitations since 6 weeks and had nausea, vomiting, palpitations 1 day prior to admission Admitted at [facility] for SVT and BB changed from Nadolol to metoprolol Found to be in SVT in ED: Treated with adenosine x 2 and metoprolol x 2. and placed on esmolol drip Appreciate Cardiology Dr. Mcdowell help Planned for electrophysiologic study and ablation today Mild Troponin elevation. Patient denies chest pain CHOLELITHIASIS, CHOLEDOCHOLITHIASIS/TRANSAMINITIS 11MM stone in CBD on MRI Plan for ERCP after cardiac ablation completed possibly on Sunday per GI Monitor LFTs Surgery consulted as well. Appreciate GI input HTN Hold metoprolol, HCTZ On esmolol ggt RIGHT KIDNEY LESION: 1.8 cm systic lesion noted on upper pole of R kidney on MRI Needs follow up ultrasound as outpatient in 3-6 months Renal function wnl HYPOTHYROIDISM low TSH Normal T3,T4 Continue Synthroid Need to repeat thyroid function as outpatient DVT PX SQ Heparin SCDs CODE STATUS Full code DISPOSITION: Continue cardiac monitoring in ICU Vital Signs: Date Time Temp Pulse Resp B/P Pulse Ox O2 Delivery O2 Flow Rate FiO2 12/21/16 07:00 36.4 72 16 167/57 95 Room Air 12/21/16 06:28 36.5 62 16 156/63 97 Room Air 12/21/16 05:30 62 16 156/63 97 12/21/16 05:15 62 14 159/74 96 12/21/16 05:01 68 21 180/58 97 12/21/16 05:00 86 26 12/21/16 04:45 57 16 130/55 95 12/21/16 04:30 71 14 128/60 96 12/21/16 04:15 69 22 135/50 96 12/21/16 04:00 67 14 134/62 98 12/21/16 04:00 36.5 67 14 134/62 98 12/21/16 04:00 98 Room Air 12/21/16 02:30 69 20 138/44 98 12/21/16 02:15 73 22 126/61 96 12/21/16 02:00 58 19 115/42 96 12/21/16 01:45 63 14 121/47 96 12/21/16 01:30 63 15 145/56 96 12/21/16 01:15 62 15 146/65 96 12/21/16 01:00 59 14 148/65 96 12/21/16 00:45 64 19 159/76 98 12/21/16 00:30 62 14 151/63 96 12/21/16 00:15 59 12 158/68 97 12/21/16 00:00 63 13 167/69 98 12/20/16 23:43 36.5 70 16 114/68 96 Room Air 12/20/16 23:39 96 Room Air 12/20/16 23:35 96 Room Air 12/20/16 22:00 63 16 124/60 96 Room Air 12/20/16 20:00 97 Room Air 12/20/16 20:00 36.8 76 18 157/97 97 Room Air 12/20/16 18:00 66 17 128/58 95 Room Air 12/20/16 16:45 68 24 173/70 98 12/20/16 16:25 67 24 159/70 97 12/20/16 16:00 36.7 69 18 97 12/20/16 16:00 97 Room Air 12/20/16 15:45 67 18 132/83 96 12/20/16 15:31 69 17 130/72 97 12/20/16 15:28 78 20 144/63 96 12/20/16 14:50 36.5 68 15 148/59 96 Room Air 12/20/16 14:18 72 18 145/85 96 Room Air 12/20/16 14:00 74 16 121/58 97 Room Air 12/20/16 13:45 79 18 144/60 95 Room Air 12/20/16 13:30 71 16 130/70 96 Room Air 12/20/16 13:15 71 18 134/75 95 Room Air 12/20/16 13:02 73 16 160/62 96 Room Air 12/20/16 12:50 125 18 128/84 96 Room Air 12/20/16 12:48 125 12/20/16 11:46 125 16 134/70 98 Room Air 12/20/16 11:30 72 16 163/72 98 Room Air 12/20/16 11:07 128 142/66 12/20/16 11:05 130 12/20/16 11:04 142/66 12/20/16 11:03 82 12/20/16 11:03 121 18 142/66 97 Room Air 12/20/16 11:00 126 26 125/83 97 12/20/16 10:45 131 22 121/79 99 12/20/16 10:44 138 141/68 12/20/16 10:32 142 12/20/16 10:30 88 25 141/68 98 12/20/16 10:29 104 12/20/16 10:20 141 21 96 Room Air 12/20/16 10:04 147 12/20/16 09:52 36.8 154 20 118/80 97 Room Air Lab Results: Results Past 24 Hours Test 12/20/16 10:05 12/20/16 16:43 12/21/16 05:25 Range/Units White Blood Count 9.24 3.86 4.8-10.8 K/uL Red Blood Count 4.05 3.25 4.2-5.4 M/uL Hemoglobin 12.4 10.3 12.0-16.0 g/dL Hematocrit 37.6 30.7 37-47 % Mean Corpuscular Volume 92.8 94.5 80-100 fL Mean Corpuscular Hemoglobin 30.6 31.7 25-34 pg Mean Corpuscular Hemoglobin Concent 33.0 33.6 32-36 g/dl Platelet Count 210 153 130-400 K/uL Mean Platelet Volume 9.4 9.3 7.4-10.4 fL Neutrophils (%) (Auto) 87.9 % Lymphocytes (%) (Auto) 6.7 % Monocytes (%) (Auto) 5.1 % Eosinophils (%) (Auto) 0.1 % Basophils (%) (Auto) 0.0 % Neutrophils # (Auto) 8.12 1.4-6.5 K/uL Lymphocytes # (Auto) 0.62 1.2-3.4 K/uL Monocytes # (Auto) 0.47 0.11-0.59 K/uL Eosinophils # (Auto) 0.01 0-0.5 K/uL Basophils # (Auto) 0.00 0-0.2 K/uL RDW Standard Deviation 51.1 52.8 36.4-46.3 fL RDW Coefficient of Variation 15.0 15.2 11.5-14.5 % Immature Granulocyte % (Auto) 0.2 % Immature Granulocyte # (Auto) 0.02 0.00-0.02 K/uL Prothrombin Time 11.4 9.0-12.0 SECONDS Prothromb Time International Ratio 1.1 0.9-1.1 Activated Partial Thromboplast Time 21.5 21.0-31.0 SECONDS Partial Thromboplastin Ratio 0.8 Sodium Level 139 143 136-145 mmol/L Potassium Level 3.5 3.9 3.5-5.1 mmol/L Chloride Level 104 108 98-107 mmol/L Carbon Dioxide Level 28 26 21-32 mmol/L Anion Gap 7.0 9.0 3-11 mmol/L Blood Urea Nitrogen 25 22 7-18 mg/dl Creatinine 1.30 1.10 0.60-1.20 mg/dl Est Creatinine Clear Calc Drug Dose 30.8 36.1 ml/min Estimated GFR () 43.3 53.0 Estimated GFR (Non- 37.4 45.7 BUN/Creatinine Ratio 19.2 19.9 10-20 Random Glucose 135 94 70-99 mg/dl Calcium Level 9.2 8.9 8.5-10.1 mg/dl Magnesium Level 1.7 2.3 1.8-2.4 mg/dl Total Bilirubin 2.7 1.6 0.2-1 mg/dl Direct Bilirubin 1.4 0.6 0-0.2 mg/dl Aspartate Amino Transf (AST/SGOT) 406 136 15-37 U/L Alanine Aminotransferase (ALT/SGPT) 186 108 12-78 U/L Alkaline Phosphatase 385 267 45-117 U/L Total Creatine Kinase 39 26-192 U/L Creatine Kinase MB < 0.5 0.5-3.6 ng/ml Creatine Kinase MB Ratio 0-3.0 Troponin I 0.042 0.273 0-0.045 ng/ml Total Protein 7.4 5.6 6.4-8.2 gm/dl Albumin 3.6 2.8 3.4-5.0 gm/dl Lipase 330 73-393 U/L Thyroid Stimulating Hormone (TSH) 0.019 0.300-4.500 uIu/ml Free Thyroxine 1.25 0.80-1.60 ng/dl Free Triiodothyronine 2.93 2.30-4.20 pg/ml Bedside Glucose 107 70-90 mg/dl Phosphorus Level 2.5 2.5-4.9 mg/dl Microbiology Results 12/20/16 MRSA DNA Surveillance Screen - Final, Complete Specimen Negative for MRSA by DNA Probe
--- NOTE | 2016-12-21 09:15 | SURGICAL CONSULTATION ---
DATE OF CONSULTATION: 12/20/2016 I have been asked by Dr. Alvina Magaña to see this 86-year-old female who was admitted with nausea, vomiting, and weakness. The patient has had 2 episodes of abdominal pain that required ER visits in [place]. She has had other episodes of pain as well over the last 2-3 months that were more mild. During one visit, she underwent an MRCP that apparently showed choledocholithiasis. She has never had jaundice, hepatitis or pancreatitis. She has noted over the last 4-6 weeks of fatty food intolerance that develops some mild discomfort in the right upper quadrant, but it does not radiate through to her back. She has not had hematemesis. Her bowels have been moving regularly and without melena or hematochezia. Upon arrival here in the Emergency Room, she was noted to be in SVT with a ventricular rate as high as 160. She has had multiple episodes of SVT in the last few months as well. Apparently, there are plans for ablation tomorrow. PAST MEDICAL HISTORY: Includes SVT, transaminitis, hypothyroidism, hypertension, history of DVT, cholelithiasis, and choledocholithiasis. PAST SURGICAL HISTORY: Significant for repair of a femur and a ROSITA-BSO during which she thinks her appendix was removed, but she is not sure. MEDICATIONS: At home included Zyloprim, aspirin, vitamin D3, Restasis, hydrochlorothiazide, metoprolol, pantoprazole, and thyroid replacement. ALLERGIES: TO ATORVASTATIN, DICLOFENAC, LEVOFLOXACIN AND ROFECOXIB. PHYSICAL EXAMINATION: GENERAL: Reveals an elderly female who appears younger than stated age, is resting comfortably and appears in no acute distress. VITAL SIGNS: Blood pressure 173/70, heart rate 68, respirations 24, temperature 36.7, and pulse oximetry is 98% on room air. HEENT: Reveals the sclerae to be anicteric. Mucous membranes are moist. NECK: Supple with no JVD. No cervical or supraclavicular adenopathy. BACK: Has no spinal or CVA tenderness. LUNGS: Clear. HEART: Regular. ABDOMEN: Has normoactive bowel sounds, soft, and nondistended with minimal tenderness in the right upper quadrant. EXTREMITIES: Reveal no edema. LABORATORY DATA: WBC is 9.24, H\T\H is 12.4 and 37.6, and platelet count 210,000. Sodium 139, potassium 3.5, chloride 104, CO2 of 28, BUN 25, creatinine 1.3, and glucose 135. Total bilirubin 2.7, AST 406, ALT 186, alkaline phosphatase 385, and lipase 330. INR is 1.1. Abdominal ultrasound showed gallstones and a small amount of sludge with moderate prominence of the common bile duct, measuring 8-10 mm. ASSESSMENT AND PLAN: This patient has choledocholithiasis by MRCP and has a dilated bile duct on ultrasound. She also has supraventricular tachycardia and is apparently to go for ablation tomorrow. An ERCP is planned for Sunday. Decision will then need to be made about timing of cholecystectomy being either immediately after ERCP or on a more elective basis. We will discuss this with other providers. Thank you for allowing me to see this patient and participate in her care.
--- NOTE | 2016-12-21 10:26 | Gastroenterology Progress Note ---
Progress Note Date of Service: December 21, 2016 Subjective Pt evaluation today including: conversation w/ patient, physical exam, chart review, lab review Pt was seen and evaluated this morning. No complaints. Doing well from a GI standpoint, no abdominal pain, fever, chills, RUQ pain. Troponin this AM elevated 0.273 - likely secondary to SVT and cardiac stress. Cardiology is planning for ablation today. ABD Us 12/20/16: Gallstones combine with gallbladder sludge. Moderate prominence of the common bile duct. MRCP 12/12/16: cholelithiasis and choledocholithiasis with a 11mm stone in common hepatic duct Review of Systems Constitutional: No chills, No fever Respiratory: No cough, No shortness of breath Cardiac: No chest pain, No edema Abdomen: No constipation, No diarrhea, No nausea, No pain, No vomiting Medications Current Inpatient Medications Medications (Trade) Dose Ordered Sig/Yola Route Start Time Stop Time Status Last Admin Dose Admin Esmolol HCl 2500 mg/Prmx 250 ml @ 0 mls/hr Q0M PRN IV 12/20/16 12:45 12/21/16 12:00 12/20/16 23:21 23.7 MLS/HR Sodium Chloride (Nss 1000ml) 1,000 ml @ 15 mls/hr Q24H ONCE IV 12/21/16 08:00 12/22/16 07:59 Heparin Sodium (Porcine) (Heparin Sq 5000 Unit/0.5ml) 5,000 unit Q12H SQ 12/20/16 20:00 01/19/17 19:59 12/20/16 21:08 5,000 UNIT Acetaminophen (Tylenol Tab) 650 mg Q4H PRN PO 12/20/16 13:15 01/19/17 13:14 12/20/16 20:01 650 MG Ondansetron HCl (Zofran Inj) 4 mg Q6H PRN IV 12/20/16 13:15 01/19/17 13:14 Allopurinol (Zyloprim Tab) 100 mg DAILY PO 12/21/16 09:00 01/20/17 08:59 12/21/16 08:22 100 MG Aspirin (Ecotrin Tab) 81 mg DAILY PO 12/21/16 09:00 01/20/17 08:59 12/21/16 08:22 81 MG Pantoprazole Sodium (Protonix Tab) 40 mg DAILY PO 12/21/16 09:00 01/20/17 08:59 12/21/16 08:22 40 MG Miscellaneous Information 1 ea 1 ea QS N/A 12/20/16 16:00 01/19/17 15:59 Potassium Chloride/Sodium Chloride (Nss + 20meq KCl 1000ml) 1,000 ml @ 100 mls/hr Q10H IV 12/20/16 23:59 01/19/17 23:58 12/20/16 23:59 100 MLS/HR Miscellaneous (Stop Order) 1 ea ONE ONCE N/A 12/21/16 12:00 12/21/16 12:01 Hydrochlorothiazide (Hydrochlorothiazide Tab) 25 mg DAILY PO 12/21/16 09:00 01/20/17 08:59 12/21/16 08:21 25 MG Thyroid ([place] Thyroid Tab) 90 mg DAILY PO 12/21/16 09:00 01/20/17 08:59 12/21/16 08:22 90 MG Objective Vital Signs Date Time Temp Pulse Resp B/P Pulse Ox O2 Delivery O2 Flow Rate FiO2 12/21/16 10:01 133 18 131/79 98 12/21/16 09:00 66 10 164/94 97 12/21/16 08:00 98 Room Air 12/21/16 07:00 36.4 72 16 167/57 95 Room Air 12/21/16 06:28 36.5 62 16 156/63 97 Room Air 12/21/16 05:30 62 16 156/63 97 12/21/16 05:15 62 14 159/74 96 12/21/16 05:01 68 21 180/58 97 12/21/16 05:00 86 26 12/21/16 04:45 57 16 130/55 95 12/21/16 04:30 71 14 128/60 96 12/21/16 04:15 69 22 135/50 96 12/21/16 04:00 67 14 134/62 98 12/21/16 04:00 36.5 67 14 134/62 98 12/21/16 04:00 98 Room Air 12/21/16 02:30 69 20 138/44 98 12/21/16 02:15 73 22 126/61 96 12/21/16 02:00 58 19 115/42 96 12/21/16 01:45 63 14 121/47 96 12/21/16 01:30 63 15 145/56 96 12/21/16 01:15 62 15 146/65 96 12/21/16 01:00 59 14 148/65 96 12/21/16 00:45 64 19 159/76 98 12/21/16 00:30 62 14 151/63 96 12/21/16 00:15 59 12 158/68 97 12/21/16 00:00 63 13 167/69 98 12/20/16 23:43 36.5 70 16 114/68 96 Room Air 12/20/16 23:39 96 Room Air 12/20/16 23:35 96 Room Air 12/20/16 22:00 63 16 124/60 96 Room Air 12/20/16 20:00 97 Room Air 12/20/16 20:00 36.8 76 18 157/97 97 Room Air 12/20/16 18:00 66 17 128/58 95 Room Air 12/20/16 16:45 68 24 173/70 98 12/20/16 16:25 67 24 159/70 97 12/20/16 16:00 36.7 69 18 97 12/20/16 16:00 97 Room Air 12/20/16 15:45 67 18 132/83 96 12/20/16 15:31 69 17 130/72 97 12/20/16 15:28 78 20 144/63 96 12/20/16 14:50 36.5 68 15 148/59 96 Room Air 12/20/16 14:18 72 18 145/85 96 Room Air 12/20/16 14:00 74 16 121/58 97 Room Air 12/20/16 13:45 79 18 144/60 95 Room Air 12/20/16 13:30 71 16 130/70 96 Room Air 12/20/16 13:15 71 18 134/75 95 Room Air 12/20/16 13:02 73 16 160/62 96 Room Air 12/20/16 12:50 125 18 128/84 96 Room Air 12/20/16 12:48 125 12/20/16 11:46 125 16 134/70 98 Room Air 12/20/16 11:30 72 16 163/72 98 Room Air 12/20/16 11:07 128 142/66 12/20/16 11:05 130 12/20/16 11:04 142/66 12/20/16 11:03 82 12/20/16 11:03 121 18 142/66 97 Room Air 12/20/16 11:00 126 26 125/83 97 12/20/16 10:45 131 22 121/79 99 12/20/16 10:44 138 141/68 12/20/16 10:32 142 12/20/16 10:30 88 25 141/68 98 12/20/16 10:29 104 Physical Exam General Appearance: no apparent distress (family at bedside) Eyes: PERRL ENT: hearing grossly normal Neck: supple Respiratory/Chest: lungs clear, normal breath sounds, no respiratory distress, no accessory muscle use Cardiovascular: no gallop, no JVD, no murmur, + tachycardia (regular rhythm) Abdomen: normal bowel sounds, non tender, soft, no organomegaly, no pulsatile mass Neurologic/Psych: alert, normal mood/affect, oriented x 3 Skin: normal color, no jaundice, warm/dry, no rash Laboratory Results Last 24 Hours Test 12/20/16 16:43 12/21/16 05:25 Bedside Glucose 107 mg/dl White Blood Count 3.86 K/uL Red Blood Count 3.25 M/uL Hemoglobin 10.3 g/dL Hematocrit 30.7 % Mean Corpuscular Volume 94.5 fL Mean Corpuscular Hemoglobin 31.7 pg Mean Corpuscular Hemoglobin Concent 33.6 g/dl RDW Standard Deviation 52.8 fL RDW Coefficient of Variation 15.2 % Platelet Count 153 K/uL Mean Platelet Volume 9.3 fL Sodium Level 143 mmol/L Potassium Level 3.9 mmol/L Chloride Level 108 mmol/L Carbon Dioxide Level 26 mmol/L Anion Gap 9.0 mmol/L Blood Urea Nitrogen 22 mg/dl Creatinine 1.10 mg/dl Est Creatinine Clear Calc Drug Dose 36.1 ml/min Estimated GFR () 53.0 Estimated GFR (Non- 45.7 BUN/Creatinine Ratio 19.9 Random Glucose 94 mg/dl Calcium Level 8.9 mg/dl Phosphorus Level 2.5 mg/dl Magnesium Level 2.3 mg/dl Total Bilirubin 1.6 mg/dl Direct Bilirubin 0.6 mg/dl Aspartate Amino Transf (AST/SGOT) 136 U/L Alanine Aminotransferase (ALT/SGPT) 108 U/L Alkaline Phosphatase 267 U/L Troponin I 0.273 ng/ml Total Protein 5.6 gm/dl Albumin 2.8 gm/dl Assessment and Plan Patient is a 86 year old female with asymptomatic elevation of LFTs and self report of MRCP with obstructive stone - we do not have access to these records tomorrow. She was admitted with SVT - will have cardiac procedures tomorrow. Troponin today elevated 0.273. TB 1.6, DB 0.6, AST 136, ALT 108, ALK 267. Will plan for ERCP (after cardiac ablation completed). We have discussed the risks to include bleeding, infection, perforation, pain, pancreatitis and failed cannulation. NPO after night ERCP on 12/22/16 HOLD NSAIDS Trend LFTs while admitted Symptomatic management I saw and evaluated the patient this afternoon. MRCP from [facility] with a stone in the CBD. We will plan for ERCP on Sunday after her ablation for SVT. We have discussed the risks to include bleeding, infection, perforation, pain, pancreatitis, and failed cannulation.
[2016-12-21] MEDS: ESMOLOL / NSS 2,500 MG in PREMIXED NSS 250 ML IV PRN (10:45)
[2016-12-21] MEDS ORDERED: [UNRECOGNIZED DRUG - REMARK] ONE (12:00)
--- NOTE | 2016-12-21 12:42 | Cardiology Follow-Up ---
Subjective Date of Service: December 21, 2016. Pt evaluation today including: conversation w/ patient, physical exam, lab review, review of studies, review of inpatient medication list History of Present Illness This is a very pleasant 86-year-old woman who has a long history of hypertension , hypothyroidism and palpitations. She had been evaluated in our office several times in the past but is seen intermittently, she was seen in 2011 and then in 2014 and is scheduled for visit this week with Dr. Sommers. Her palpitations have been recorded as being due to premature beats, typically atrial premature beats and periods of atrial tachycardia. Her symptoms seem to correlate with these rhythms in the past, however based on her records she also describes her heart "pumping really hard" which is less frequent than the palpitations. More recently she has been having difficulty with her gallbladder and surgery has been recommended, in fact she has an appointment with Dr. Kahn today for that. In addition however her palpitations have become increasingly worse and she notices a rapid heart rate (which she also describes as her heart pumping very hard) frequently over the last 6 weeks. She doesn't think she had this before, although based on her record she may have. She was seen in [facility] where she was told she had SVT and she would probably need to have it ablated. She has noticed over the last several days that the palpitations are present more often than they're not, and she came into the emergency room today. In the emergency room she was noted to have supraventricular tachycardia which terminated on several occasions with adenosine but restarted. Intravenous beta- blockade (metoprolol 10 mg) helped somewhat with slowing of the rate down to about 120 bpm from 150 and with spontaneous termination but reinitiation occurring. She did not have lightheadedness or dizziness, has not had presyncope or syncope. She did not have chest discomfort. I started esmolol to control her arrhythmia and she has had no further SVT. I discussed electrophysiologic study and ablation with her and she is tentatively scheduled for today. She has no complaints today. Social History Smoking Status: Never Smoker History of Alcohol Use: No Review of Systems Respiratory: No cough, No shortness of breath Cardiac: No chest pain, No edema Objective Vital Signs Past 12 Hours Date Time Temp Pulse Resp B/P Pulse Ox O2 Delivery O2 Flow Rate FiO2 12/21/16 12:01 36.6 147 28 123/86 98 Room Air 12/21/16 10:01 133 18 131/79 98 12/21/16 09:00 66 10 164/94 97 12/21/16 08:00 98 Room Air 12/21/16 08:00 Room Air 12/21/16 07:00 36.4 72 16 167/57 95 Room Air 12/21/16 06:28 36.5 62 16 156/63 97 Room Air 12/21/16 05:30 62 16 156/63 97 12/21/16 05:15 62 14 159/74 96 12/21/16 05:01 68 21 180/58 97 12/21/16 05:00 86 26 12/21/16 04:45 57 16 130/55 95 12/21/16 04:30 71 14 128/60 96 12/21/16 04:15 69 22 135/50 96 12/21/16 04:00 67 14 134/62 98 12/21/16 04:00 36.5 67 14 134/62 98 12/21/16 04:00 98 Room Air 12/21/16 02:30 69 20 138/44 98 12/21/16 02:15 73 22 126/61 96 12/21/16 02:00 58 19 115/42 96 12/21/16 01:45 63 14 121/47 96 12/21/16 01:30 63 15 145/56 96 12/21/16 01:15 62 15 146/65 96 12/21/16 01:00 59 14 148/65 96 12/21/16 00:45 64 19 159/76 98 Last Recorded Weight-Kilograms: 77.900 Intake & Output 8-Hour Column 12/20/16 12/21/16 12/21/16 16:00 00:00 08:00 Intake Total 880 ml 1087 ml Output Total 100 ml Balance 780 ml 1087 ml 24-Hour Column 12/21/16 08:00 Intake Total 1967 ml Output Total 100 ml Balance 1867 ml Physical Exam Constitutional: General Apperance: heathly-appearing Level of Distress: NAD Lungs: Respiratory effort: no dyspnea, good air movement Auscultation: breath sounds normal, no wheezing Cardiovascular: Heart Auscultation: RRR, no murmurs, no rubs, no gallops, tachycardia Peripheral Pulses: Bruits: none appreciated Extremities: no edema Data Laboratory Results: Last 24 Hours Test 12/20/16 16:43 12/21/16 05:25 Bedside Glucose 107 mg/dl White Blood Count 3.86 K/uL Red Blood Count 3.25 M/uL Hemoglobin 10.3 g/dL Hematocrit 30.7 % Mean Corpuscular Volume 94.5 fL Mean Corpuscular Hemoglobin 31.7 pg Mean Corpuscular Hemoglobin Concent 33.6 g/dl RDW Standard Deviation 52.8 fL RDW Coefficient of Variation 15.2 % Platelet Count 153 K/uL Mean Platelet Volume 9.3 fL Sodium Level 143 mmol/L Potassium Level 3.9 mmol/L Chloride Level 108 mmol/L Carbon Dioxide Level 26 mmol/L Anion Gap 9.0 mmol/L Blood Urea Nitrogen 22 mg/dl Creatinine 1.10 mg/dl Est Creatinine Clear Calc Drug Dose 36.1 ml/min Estimated GFR () 53.0 Estimated GFR (Non- 45.7 BUN/Creatinine Ratio 19.9 Random Glucose 94 mg/dl Calcium Level 8.9 mg/dl Phosphorus Level 2.5 mg/dl Magnesium Level 2.3 mg/dl Total Bilirubin 1.6 mg/dl Direct Bilirubin 0.6 mg/dl Aspartate Amino Transf (AST/SGOT) 136 U/L Alanine Aminotransferase (ALT/SGPT) 108 U/L Alkaline Phosphatase 267 U/L Troponin I 0.273 ng/ml Total Protein 5.6 gm/dl Albumin 2.8 gm/dl Telemetry reviewed: Sinus rhythm, no SVT since starting esmolol. Assessment and Plan #1. 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 She describes having a lot of difficulty over the last 6 weeks , she does not recall episodes before but based on her description and our old records she may have had it before on a more sporadic basis. At this time she is in nearly incessant SVT with difficult to control it, she was on metoprolol as an outpatient (although I'm not sure of the dose) and that clearly did not help. We could try ongoing medical therapy but I think it is highly unlikely that we will get control of her arrhythmia. It is certainly not good for her to have this degree of tachycardia. I think ablation is reasonable. I discussed electrophysiologic study and ablation with her and her family including her and grandson. I described the indications, procedure, risks and alternatives and they would like to proceed. She may have difficulty with her normal AV abdoul pathway leading to this frequent tachycardia, in which case she will have a higher than normal likelihood of a pacemaker and they understand that. We will plan on performing ablation tomorrow afternoon, today I'm going to try to control it with Brevibloc. I reviewed the procedure again with her today and obtained consent for the procedure. #2. Palpitations: Historically the majority of her palpitations appear to be premature atrial beats, but perhaps some of it was SVT although she doesn't specifically recall that and I don't think it was recorded. Her palpitations have not been much of a problem lately and generally they do not bother her very much although she notices that. #3. Gallbladder disease: She seems to have concomitant gallbladder disease, and surgery has been recommended. She was to see Dr. Kahn so we will arrange for her to do that while she is here. I think we should perform electrophysiology study and ablation however unless there is a clear contraindication to do so. #4. Elevated troponin: Her postadmission troponins are minimally elevated, consistent with demand ischemia. We should proceed with ablation and not pursue coronary evaluation. Thank you for allowing me to participate in her care.
--- NOTE | 2016-12-21 13:41 | Procedure Note ---
Pre-Mod Sedation Assessment General Date of Moderate Sedation: December 21, 2016. Vital Signs: Vital Signs Past 12 Hours Date Time Temp Pulse Resp B/P Pulse Ox O2 Delivery O2 Flow Rate FiO2 12/21/16 12:01 36.6 147 28 123/86 98 Room Air 12/21/16 10:01 133 18 131/79 98 12/21/16 09:00 66 10 164/94 97 12/21/16 08:00 98 Room Air 12/21/16 08:00 Room Air 12/21/16 07:00 36.4 72 16 167/57 95 Room Air 12/21/16 06:28 36.5 62 16 156/63 97 Room Air 12/21/16 05:30 62 16 156/63 97 12/21/16 05:15 62 14 159/74 96 12/21/16 05:01 68 21 180/58 97 12/21/16 05:00 86 26 12/21/16 04:45 57 16 130/55 95 12/21/16 04:30 71 14 128/60 96 12/21/16 04:15 69 22 135/50 96 12/21/16 04:00 67 14 134/62 98 12/21/16 04:00 36.5 67 14 134/62 98 12/21/16 04:00 98 Room Air 12/21/16 02:30 69 20 138/44 98 12/21/16 02:15 73 22 126/61 96 12/21/16 02:00 58 19 115/42 96 12/21/16 01:45 63 14 121/47 96 Review Cardiovascular: regular rate, rhythm Abdomen: normal bowel sounds Lungs: lungs clear Pre-Sedation Airway Assessment Oral Cavity: Dentures Short Thick Neck: No Hx of Sleep Apnea: No Smoking Status: Never Smoker Procedure Planning Contraindications-for Mod Sed: None Yes Notes The planned sedation has been discussed with the patient and consent obtained. I have identified the patient, determined the appropriateness of sedation and have assessed the patient immediately prior to the procedure. All medicine(s) and interventions are by my order.
[2016-12-21] MEDS ORDERED: MIDAZOLAM HCL 5 MG/ML 1 ML VIAL ONE ×2 (13:46→15:00)
[2016-12-21] MEDS ORDERED: FENTANYL CITRATE INJ 50 MCG/1 ML 2 ML VIAL ONE ×2 (13:47→15:00)
--- NOTE | 2016-12-21 16:22 | Procedure Note ---
Post-Mod Sedation Assessment General Date of Moderate Sedation December 21, 2016. Vital Signs: Vital Signs Past 12 Hours Date Time Temp Pulse Resp B/P Pulse Ox O2 Delivery O2 Flow Rate FiO2 12/21/16 12:01 36.6 147 28 123/86 98 Room Air 12/21/16 10:01 133 18 131/79 98 12/21/16 09:00 66 10 164/94 97 12/21/16 08:00 98 Room Air 12/21/16 08:00 Room Air 12/21/16 07:00 36.4 72 16 167/57 95 Room Air 12/21/16 06:28 36.5 62 16 156/63 97 Room Air 12/21/16 05:30 62 16 156/63 97 12/21/16 05:15 62 14 159/74 96 12/21/16 05:01 68 21 180/58 97 12/21/16 05:00 86 26 12/21/16 04:45 57 16 130/55 95 12/21/16 04:30 71 14 128/60 96 Review - Discharge Criteria Vital Signs Stable: Yes Alert/Oriented/Conversant: Yes Returned to Baseline Mental St: Yes Nausea Absent/Minimal: Yes Pain/Discomfort/Absent/Minimal: Yes Normal/Baseline Respirations: Yes Active Bleeding?: No
--- NOTE | 2016-12-21 16:25 | Cardiology Procedure Brief Nt ---
Preliminary Cardiology Note Procedure Date December 21, 2016. Pre-Procedure Diagnosis SVT Post-Procedure Diagnosis typical AV abdoul reentry Procedure(s) Performed Free catheter electrophysiologic study Ablation SVT Dye Feeder Dr. Mcdowell Hotel Attendant(s) none Estimated Blood Loss 20 cc Preliminary Findings Virtually incessant SVT on arrival, consistent with typical AV abdoul reentry. Ablation performed with slow pathway modification, there is no inducibility after ablation with atrial stimulation however ventricular stimulation didn't result in AV abdoul reentry. This second arrhythmia was difficult to ablate, it appeared that the lesions would need to be placed very close to the intrinsic conduction system. This was therefore not done, this may or may not be a clinical tachycardia. Recommendations Monitor Specimens None Anesthesia local with sedation Complication(s) None Disposition Surgical ICU
[2016-12-21] MEDS ORDERED: ACETAMINOPHEN 325 MG TAB PO PRN (16:30)
[2016-12-21] MEDS ORDERED: METOPROLOL TARTRATE 25 MG TAB PO ONE (17:00)
--- NOTE | 2016-12-21 19:56 | Surgery Progress Note ---
Surgery Progress Note Date of Service December 21, 2016. Subjective + feeling well, No nausea, No vomiting Objective Vital Signs: Date Time Temp Pulse Resp B/P Pulse Ox O2 Delivery O2 Flow Rate FiO2 12/21/16 18:00 36.7 116 16 151/87 95 Mask 12/21/16 16:40 36.6 74 16 176/83 98 Mask 74 12/21/16 16:30 98 Mask 4 12/21/16 16:25 98 Mask 4 12/21/16 16:20 98 Mask 4 12/21/16 16:15 75 16 150/81 98 Mask 4 12/21/16 12:01 36.6 147 28 123/86 98 Room Air 12/21/16 10:01 133 18 131/79 98 12/21/16 09:00 66 10 164/94 97 12/21/16 08:00 98 Room Air 12/21/16 08:00 Room Air 12/21/16 07:00 36.4 72 16 167/57 95 Room Air 12/21/16 06:28 36.5 62 16 156/63 97 Room Air 12/21/16 05:30 62 16 156/63 97 12/21/16 05:15 62 14 159/74 96 12/21/16 05:01 68 21 180/58 97 12/21/16 05:00 86 26 12/21/16 04:45 57 16 130/55 95 12/21/16 04:30 71 14 128/60 96 12/21/16 04:15 69 22 135/50 96 12/21/16 04:00 67 14 134/62 98 12/21/16 04:00 36.5 67 14 134/62 98 12/21/16 04:00 98 Room Air 12/21/16 02:30 69 20 138/44 98 12/21/16 02:15 73 22 126/61 96 12/21/16 02:00 58 19 115/42 96 12/21/16 01:45 63 14 121/47 96 12/21/16 01:30 63 15 145/56 96 12/21/16 01:15 62 15 146/65 96 12/21/16 01:00 59 14 148/65 96 12/21/16 00:45 64 19 159/76 98 12/21/16 00:30 62 14 151/63 96 5/11/17 00:15 59 12 158/68 97 12/21/16 00:00 63 13 167/69 98 12/20/16 23:43 36.5 70 16 114/68 96 Room Air 12/20/16 23:39 96 Room Air 12/20/16 23:35 96 Room Air 12/20/16 22:00 63 16 124/60 96 Room Air 12/20/16 20:00 97 Room Air 12/20/16 20:00 36.8 76 18 157/97 97 Room Air Abdomen: normal bowel sounds, non tender, non distended, soft, no organomegaly Laboratory Results: Results Past 24 Hours Test 12/21/16 05:25 Range/Units White Blood Count 3.86 4.8-10.8 K/uL Red Blood Count 3.25 4.2-5.4 M/uL Hemoglobin 10.3 12.0-16.0 g/dL Hematocrit 30.7 37-47 % Mean Corpuscular Volume 94.5 80-100 fL Mean Corpuscular Hemoglobin 31.7 25-34 pg Mean Corpuscular Hemoglobin Concent 33.6 32-36 g/dl RDW Standard Deviation 52.8 36.4-46.3 fL RDW Coefficient of Variation 15.2 11.5-14.5 % Platelet Count 153 130-400 K/uL Mean Platelet Volume 9.3 7.4-10.4 fL Sodium Level 143 136-145 mmol/L Potassium Level 3.9 3.5-5.1 mmol/L Chloride Level 108 98-107 mmol/L Carbon Dioxide Level 26 21-32 mmol/L Anion Gap 9.0 3-11 mmol/L Blood Urea Nitrogen 22 7-18 mg/dl Creatinine 1.10 0.60-1.20 mg/dl Est Creatinine Clear Calc Drug Dose 36.1 ml/min Estimated GFR () 53.0 Estimated GFR (Non- 45.7 BUN/Creatinine Ratio 19.9 10-20 Random Glucose 94 70-99 mg/dl Calcium Level 8.9 8.5-10.1 mg/dl Phosphorus Level 2.5 2.5-4.9 mg/dl Magnesium Level 2.3 1.8-2.4 mg/dl Total Bilirubin 1.6 0.2-1 mg/dl Direct Bilirubin 0.6 0-0.2 mg/dl Aspartate Amino Transf (AST/SGOT) 136 15-37 U/L Alanine Aminotransferase (ALT/SGPT) 108 12-78 U/L Alkaline Phosphatase 267 45-117 U/L Troponin I 0.273 0-0.045 ng/ml Total Protein 5.6 6.4-8.2 gm/dl Albumin 2.8 3.4-5.0 gm/dl Assessment & Plan Choledocholithiasis, for ERCP tomorrow Will need laparoscopic elia at some point. Deciding timing
[2016-12-21] MEDS: SODIUM CHLORIDE 0.9% 1000ML 1,000 ML IV ONE (20:34)
[2016-12-22] VITALS (37 sets, daily range): BP systolic 125–209; BP diastolic 55–118; PULSE 61–101; TEMP 36.5–37; O2SAT 93–96
[2016-12-22] MEDS ORDERED: METOPROLOL TARTRATE 1 MG/ML VIAL IV STA (01:58)
[2016-12-22] MEDS ORDERED: METOPROLOL TARTRATE 1 MG/ML VIAL ONE (02:03)
[2016-12-22] MEDS ORDERED: HydrALAZINE HCL 20 MG/ML VIAL ONE ×3 (03:09→16:45)
[2016-12-22] MEDS ORDERED: MoRPHine SULFATE 2 MG/ML CARP IV STA (03:20)
[2016-12-22] MEDS ORDERED: NITROGLYCERIN 0.4 MG SL PER TAB CHARGE SL STA (03:57)
[2016-12-22] MEDS ORDERED: NITROGLYCERIN 0.4 MG SL PER TAB CHARGE ONE (03:58)
[2016-12-22] MEDS: ONDANSETRON INJ 2 MG/ML 2 ML VIAL IV PRN ×3 (04:08→21:10)
[2016-12-22] MEDS ORDERED: NITROGLYCERIN 2% OINTMENT 30GM TUBE EXT STA (04:10)
[2016-12-22 04:24] LABS: HEMATOCRIT 34.1 % (37-47); MEAN CELL VOLUME 93.9 fL (80-100); MEAN CORPUSCULAR HEMOGLOBIN 31.4 pg (25-34); MEAN PLATELET VOLUME 9.2 fL (7.4-10.4); PLATELET COUNT 187 K/uL (130-400); RED BLOOD COUNT 3.63 M/uL (4.2-5.4); WHITE BLOOD COUNT 7.18 K/uL (4.8-10.8)
[2016-12-22 04:27] LABS: MEAN CORPUSCULAR HGB CONC 33.4 g/dl (32-36)
[2016-12-22 04:54] LABS: BUN/CREATININE RATIO 19.8 (10-20); MAGNESIUM 1.8 mg/dl (1.8-2.4); POTASSIUM 3.9 mmol/L (3.5-5.1)
[2016-12-22 04:58] LABS: PHOSPHORUS 2.3 mg/dl (2.5-4.9)
[2016-12-22] MEDS: NSS + 20MEQ KCL 1000ML 1,000 ML IV SCH ×2 (05:15→18:07)
[2016-12-22] MEDS ORDERED: HEPARIN IV LOW DOSE NO BOLUS SCH (05:15)
[2016-12-22] MEDS ORDERED: HEPARIN 25,000 UNIT/500ML D5W 500 ML IV PRN (06:00)
--- NOTE | 2016-12-22 06:36 | DIAGNOSTIC IMAGING REPORT ---
CHEST ONE VIEW PORTABLE CLINICAL HISTORY: Atypical chest pain COMPARISON STUDY: 12/20/2016 FINDINGS: The heart is mildly enlarged. There is no failure. There is no focal pulmonary consolidation. There are mild left basilar atelectatic changes. There is minor blunting left lateral costophrenic angle.[ IMPRESSION: Mild cardiomegaly. No evidence of overt failure. No evidence of focal pulmonary consolidation Electronically signed by: Eric Murray M.D. 12/22/2016 6:35 AM Dictated Date/Time: 12/22/2016 6:34 AM
[2016-12-22] MEDS ORDERED: NURSING VERBAL MED ORDER ONE ×4 (07:45→16:30)
[2016-12-22] MEDS: ASPIRIN 81 MG ECTAB PO SCH ×2 (07:50→09:10)
[2016-12-22] MEDS: RESTASIS-ORDER AWAITING ACTION SCH ×3 (07:51→16:00)
[2016-12-22] MEDS: ARMOUR THYROID 30 MG TAB PO SCH (07:57)
[2016-12-22] MEDS: ALLOPURINOL 100 MG TAB PO SCH (07:58)
[2016-12-22] MEDS: HYDROCHLOROTHIAZIDE 25 MG TAB PO SCH (07:58)
[2016-12-22] MEDS: PANTOprazole SOD 40 MG TAB PO SCH (07:58)
[2016-12-22] MEDS ORDERED: ACETAMINOPHEN IV 650 MG in EMPTY BAG 0 ML IV SCH (08:00)
--- NOTE | 2016-12-22 08:10 | Surgery Progress Note ---
Surgery Progress Note Date of Service December 22, 2016. Subjective Post OP Day: HD # 2 No nausea, No vomiting Had an event of Hypertension last evening , BP 209/80. She had headache, blurred vision, difficulty breathing/shortness of breath, and inability to stick out tongue. Nursing staff concerned for possible stroke symptoms. HR stayed stable in the 60-80s. EKG at 0330 showed inferior and anterolateral ischemia Repeat EKG at 0645 showed normal EKG and normal sinus rhythm This morning feeling better. No further headache, chest pain, shortness of breath, blurred vision s/p Ablation for supraventricular tachycardia Having some mild abdominal discomfort in the RUQ Objective Vital Signs: Date Time Temp Pulse Resp B/P Pulse Ox O2 Delivery O2 Flow Rate FiO2 12/22/16 03:59 Room Air 12/22/16 03:02 69 21 209/80 94 12/22/16 03:00 65 19 209/80 95 Room Air 68 12/22/16 02:14 80 184/92 12/22/16 02:01 184/92 12/22/16 02:00 84 17 12/22/16 01:01 86 17 183/78 95 12/22/16 01:00 66 18 12/22/16 00:00 36.6 87 17 193/83 94 Room Air 12/21/16 22:00 64 16 176/91 94 Room Air 12/21/16 20:00 36.8 63 17 159/69 92 Mask 12/21/16 18:00 36.7 116 16 151/87 95 Mask 12/21/16 16:40 36.6 74 16 176/83 98 Mask 74 12/21/16 16:30 98 Mask 4 12/21/16 16:25 98 Mask 4 12/21/16 16:20 98 Mask 4 12/21/16 16:15 75 16 150/81 98 Mask 4 12/21/16 12:01 36.6 147 28 123/86 98 Room Air 12/21/16 10:01 133 18 131/79 98 12/21/16 09:00 66 10 164/94 97 General Appearance: WD/WN, no apparent distress Head: normocephalic, atraumatic Neck: trachea midline Respiratory/Chest: no respiratory distress, no accessory muscle use Abdomen: non distended, soft, + tenderness (mild tenderness in the epigastric and RUQ, no rigidity or guarding) Laboratory Results: Results Past 24 Hours Test 12/22/16 04:17 12/22/16 06:00 12/22/16 08:00 Range/Units White Blood Count 7.18 4.8-10.8 K/uL Red Blood Count 3.63 4.2-5.4 M/uL Hemoglobin 11.4 12.0-16.0 g/dL Hematocrit 34.1 37-47 % Mean Corpuscular Volume 93.9 80-100 fL Mean Corpuscular Hemoglobin 31.4 25-34 pg Mean Corpuscular Hemoglobin Concent 33.4 32-36 g/dl RDW Standard Deviation 52.1 36.4-46.3 fL RDW Coefficient of Variation 15.2 11.5-14.5 % Platelet Count 187 130-400 K/uL Mean Platelet Volume 9.2 7.4-10.4 fL Sodium Level 141 136-145 mmol/L Potassium Level 3.9 3.5-5.1 mmol/L Chloride Level 107 98-107 mmol/L Carbon Dioxide Level 24 21-32 mmol/L Anion Gap 10.0 3-11 mmol/L Blood Urea Nitrogen 20 7-18 mg/dl Creatinine 1.00 0.60-1.20 mg/dl Est Creatinine Clear Calc Drug Dose 39.8 ml/min Estimated GFR () 59.5 Estimated GFR (Non- 51.3 BUN/Creatinine Ratio 19.8 10-20 Random Glucose 96 70-99 mg/dl Calcium Level 9.0 8.5-10.1 mg/dl Phosphorus Level 2.3 2.5-4.9 mg/dl Magnesium Level 1.8 1.8-2.4 mg/dl Troponin I 2.010 0-0.045 ng/ml Activated Partial Thromboplast Time 25.4 21.0-31.0 SECONDS Partial Thromboplastin Ratio 1.0 Diagnostic Interpretation: EKG at 0300 showed inferolateral ischemia Repeat EKG at Assessment & Plan Choledocholithiasis Minimal RUQ abdominal pain POD # 1 s/p cardiac ablation for SVT - vitals showing hypertension otherwise stable - H&H stable, no leukocytosis - CMP pending - minimal abdominal pain Plan: Patient is scheduled for ERCP this afternoon with Dr. Balderas. Given the acute event last evening of hypertension, elect to not do cholecystectomy following ERCP. She could be discharged home following ERCP once stable and have outpatient elective cholecystectomy Patient was originally scheduled to see Dr. Kahn in the office this week in regards to her Choledocholithiasis Continue current ICU management will follow Dr. Gutierrez has seen and examined patient, agrees with above findings and plan.
[2016-12-22] MEDS ORDERED: METOPROLOL TARTRATE 1 MG/ML VIAL IV PRN (08:30)
--- NOTE | 2016-12-22 08:30 | Gastroenterology Progress Note ---
Progress Note Date of Service: December 22, 2016 Subjective Pt evaluation today including: conversation w/ patient, physical exam, chart review, lab review Pt seen and evaluated. Ablation yesterday for rate control. Acute events overnight with hypertension, MCCLURE, nausea, blurred vision, gagging. Nursing staff was concerned about stroke and NC. EKG w/ ischemia which was resolved on repeat EKG. She is no longer having chest pain or SOB. + nausea and mild RUQ discomfort. She is hesitant to have any procedures done at this point in time. Denies fever, chills, abdominal pain, black/bloody stools. Review of Systems Constitutional: No chills, No fever Respiratory: No cough, No shortness of breath Cardiac: No chest pain Abdomen: + nausea, + pain (mild ruq discomfort) Medications Current Inpatient Medications Medications (Trade) Dose Ordered Sig/Yola Route Start Time Stop Time Status Last Admin Dose Admin Acetaminophen (Tylenol Tab) 650 mg Q4H PRN PO 12/20/16 13:15 01/19/17 13:14 12/20/16 20:01 650 MG Ondansetron HCl (Zofran Inj) 4 mg Q6H PRN IV 12/20/16 13:15 01/19/17 13:14 12/22/16 04:15 4 MG Allopurinol (Zyloprim Tab) 100 mg DAILY PO 12/21/16 09:00 01/20/17 08:59 12/22/16 07:58 100 MG Aspirin (Ecotrin Tab) 81 mg DAILY PO 12/21/16 09:00 01/20/17 08:59 12/21/16 08:22 81 MG Pantoprazole Sodium (Protonix Tab) 40 mg DAILY PO 12/21/16 09:00 01/20/17 08:59 12/22/16 07:58 40 MG Miscellaneous Information (Order Awaiting Action) 1 ea QS N/A 12/20/16 16:00 01/19/17 15:59 Hydrochlorothiazide (Hydrochlorothiazide Tab) 25 mg DAILY PO 12/21/16 09:00 01/20/17 08:59 12/22/16 07:58 25 MG Thyroid ([place] Thyroid Tab) 90 mg DAILY PO 12/21/16 09:00 01/20/17 08:59 12/22/16 07:57 90 MG Metoprolol Succinate 50 mg 50 mg QAM PO 12/22/16 09:00 01/21/17 08:59 12/22/16 07:58 50 MG Potassium Chloride/Sodium Chloride (Nss + 20meq KCl 1000ml) 1,000 ml @ 100 mls/hr Q10H IV 12/22/16 05:15 01/21/17 05:14 12/22/16 05:15 100 MLS/HR Nitroglycerin 1 inch 1 inch Q6 EXT 12/22/16 12:00 01/21/17 11:59 Heparin Sodium/ Dextrose 500 ml @ 15 mls/hr Q24H PRN IV 12/22/16 06:00 01/21/17 05:59 12/22/16 06:45 15 MLS/HR Acetaminophen/ Empty Bag (Ofirmev Iv/ Empty Iv Bag 100ml) 65 ml @ 260 mls/hr TODAY@0800 IV 12/22/16 08:00 12/22/16 09:00 Metoprolol Tartrate (Lopressor Iv) 5 mg Q4H PRN IV 12/22/16 08:30 01/21/17 08:29 Objective Vital Signs Date Time Temp Pulse Resp B/P Pulse Ox O2 Delivery O2 Flow Rate FiO2 12/22/16 03:59 Room Air 12/22/16 03:02 69 21 209/80 94 12/22/16 03:00 65 19 209/80 95 Room Air 68 12/22/16 02:14 80 184/92 12/22/16 02:01 184/92 12/22/16 02:00 84 17 12/22/16 01:01 86 17 183/78 95 12/22/16 01:00 66 18 12/22/16 00:00 36.6 87 17 193/83 94 Room Air 12/21/16 22:00 64 16 176/91 94 Room Air 12/21/16 20:00 36.8 63 17 159/69 92 Mask 12/21/16 18:00 36.7 116 16 151/87 95 Mask 12/21/16 16:40 36.6 74 16 176/83 98 Mask 74 12/21/16 16:30 98 Mask 4 12/21/16 16:25 98 Mask 4 12/21/16 16:20 98 Mask 4 12/21/16 16:15 75 16 150/81 98 Mask 4 12/21/16 12:01 36.6 147 28 123/86 98 Room Air 12/21/16 10:01 133 18 131/79 98 12/21/16 09:00 66 10 164/94 97 Physical Exam General Appearance: no apparent distress (she is wearing O2, daughter is at bedside) Eyes: PERRL ENT: hearing grossly normal Neck: supple Respiratory/Chest: normal breath sounds, no respiratory distress, no accessory muscle use Cardiovascular: regular rate, rhythm, no edema, no gallop, no JVD Abdomen: normal bowel sounds, soft, no organomegaly, no pulsatile mass Neurologic/Psych: alert, normal mood/affect, oriented x 3 Skin: normal color, warm/dry, no rash Laboratory Results Last 24 Hours Test 12/22/16 04:17 12/22/16 06:00 12/22/16 08:00 White Blood Count 7.18 K/uL Red Blood Count 3.63 M/uL Hemoglobin 11.4 g/dL Hematocrit 34.1 % Mean Corpuscular Volume 93.9 fL Mean Corpuscular Hemoglobin 31.4 pg Mean Corpuscular Hemoglobin Concent 33.4 g/dl RDW Standard Deviation 52.1 fL RDW Coefficient of Variation 15.2 % Platelet Count 187 K/uL Mean Platelet Volume 9.2 fL Sodium Level 141 mmol/L Potassium Level 3.9 mmol/L Chloride Level 107 mmol/L Carbon Dioxide Level 24 mmol/L Anion Gap 10.0 mmol/L Blood Urea Nitrogen 20 mg/dl Creatinine 1.00 mg/dl Est Creatinine Clear Calc Drug Dose 39.8 ml/min Estimated GFR () 59.5 Estimated GFR (Non- 51.3 BUN/Creatinine Ratio 19.8 Random Glucose 96 mg/dl Calcium Level 9.0 mg/dl Phosphorus Level 2.3 mg/dl Magnesium Level 1.8 mg/dl Troponin I 2.010 ng/ml Activated Partial Thromboplast Time 25.4 SECONDS Partial Thromboplastin Ratio 1.0 Assessment and Plan Patient is a 86 year old female with asymptomatic elevation of LFTs amd MRCP with obstructive stone - she was admitted with SVT - had ablation on 12/21/16. Troponin elevated 0.273. TB 1.6, DB 0.6, AST 136, ALT 108, ALK 267 on 12/21/16. Acute events overnight w/ BP 209/80, MCCLURE, nausea blurred vision, SOB & gagging. EKG w/ acute ischemia overnight, heparin gtt started this AM w/ Troponin elevation of 2.010. LFTS on 12/22/16 pending GI suggests to postpone ERCP given acute events overnight Appreciate cardiology input and recommendations please keep NPO in event of ERCP today HOLD NSAIDS She will need to be off heparin gtt for 6 hours prior to ERCP Continue symptomatic management Follow LFTs over the weekend. Repeat MRCP tomorrow. I saw and evaluated the patient, ercp cancelled due to cardiac issues last evening. Recs: MRCP once stable (see if a stone is still present)
--- NOTE | 2016-12-22 08:41 | Progress Note ---
Internal Med Progress Note Date of Service: December 22, 2016. Provider Documentation: SUBJECTIVE: Seen and examined at bedside. Had ablation yesterday. States that she had nausea , headache, blurry vision, SOB and her BP worsened overnight. Currently states headache is improving, blurry vision resolved. Denies any chest pain, SOB currently. Patient had some EKG changes and was placed on IV heparin overnight. ERCP postponed for today. OBJECTIVE: Vital Signs-as noted below Physical Exam: General Appearance:Moderately built and nourished, no apparent distress Head: normocephalic, Atraumatic Eyes: normal inspection, EOMI, PERRL Neck: supple, Trachea midline Respiratory/Chest: Normal breath sounds, CTA Cardiovascular: S1, S2, No murmur Abdomen/GI:Soft, mild epigastric tender, Bowel sounds present Extremities/Musculoskelatal:normal inspection, Trace edema Neurologic/Psych:AAOX3, grossly no focal neurological deficits Skin: normal color, warm Lab data as noted below. ASSESSMENT & PLAN: SVT Presented with H/O palpitations since 6 weeks and had nausea, vomiting, palpitations 1 day prior to admission Admitted at [facility] for SVT and BB changed from Nadolol to metoprolol Found to be in SVT in ED: Treated with adenosine x 2 and metoprolol x 2. and was on esmolol drip S/P Ablation on 12/21/16 Troponin elevated and Hypertensive overnight: Trend Troponin Check ECHO Possible cath if Concern for ACS Appreciate Cardiology Dr. Mcdowell help Continue IV heparin NPO for now Labs pending HEADACHE: Transient Blurry vision No focal deficits Follow up CT head CHOLELITHIASIS, CHOLEDOCHOLITHIASIS/TRANSAMINITIS 11MM stone in CBD on MRI Plan for ERCP after cardiac issues addressed Monitor LFTs Appreciate GI/Surgery input HTN On metoprolol, HCTZ RIGHT KIDNEY LESION: 1.8 cm systic lesion noted on upper pole of R kidney on MRI Needs follow up ultrasound as outpatient in 3-6 months Renal function wnl HYPOTHYROIDISM low TSH Normal T3,T4 Continue Synthroid Need to repeat thyroid function as outpatient DVT PX SQ Heparin SCDs CODE STATUS Full code DISPOSITION: Continue cardiac monitoring in ICU Vital Signs: Date Time Temp Pulse Resp B/P Pulse Ox O2 Delivery O2 Flow Rate FiO2 12/22/16 03:59 Room Air 12/22/16 03:02 69 21 209/80 94 12/22/16 03:00 65 19 209/80 95 Room Air 68 12/22/16 02:14 80 184/92 12/22/16 02:01 184/92 12/22/16 02:00 84 17 12/22/16 01:01 86 17 183/78 95 12/22/16 01:00 66 18 12/22/16 00:00 36.6 87 17 193/83 94 Room Air 12/21/16 22:00 64 16 176/91 94 Room Air 12/21/16 20:00 36.8 63 17 159/69 92 Mask 12/21/16 18:00 36.7 116 16 151/87 95 Mask 12/21/16 16:40 36.6 74 16 176/83 98 Mask 74 12/21/16 16:30 98 Mask 4 12/21/16 16:25 98 Mask 4 12/21/16 16:20 98 Mask 4 12/21/16 16:15 75 16 150/81 98 Mask 4 12/21/16 12:01 36.6 147 28 123/86 98 Room Air 12/21/16 10:01 133 18 131/79 98 Lab Results: Results Past 24 Hours Test 12/22/16 04:17 12/22/16 06:00 12/22/16 08:00 Range/Units White Blood Count 7.18 4.8-10.8 K/uL Red Blood Count 3.63 4.2-5.4 M/uL Hemoglobin 11.4 12.0-16.0 g/dL Hematocrit 34.1 37-47 % Mean Corpuscular Volume 93.9 80-100 fL Mean Corpuscular Hemoglobin 31.4 25-34 pg Mean Corpuscular Hemoglobin Concent 33.4 32-36 g/dl RDW Standard Deviation 52.1 36.4-46.3 fL RDW Coefficient of Variation 15.2 11.5-14.5 % Platelet Count 187 130-400 K/uL Mean Platelet Volume 9.2 7.4-10.4 fL Sodium Level 141 136-145 mmol/L Potassium Level 3.9 3.5-5.1 mmol/L Chloride Level 107 98-107 mmol/L Carbon Dioxide Level 24 21-32 mmol/L Anion Gap 10.0 3-11 mmol/L Blood Urea Nitrogen 20 7-18 mg/dl Creatinine 1.00 0.60-1.20 mg/dl Est Creatinine Clear Calc Drug Dose 39.8 ml/min Estimated GFR () 59.5 Estimated GFR (Non- 51.3 BUN/Creatinine Ratio 19.8 10-20 Random Glucose 96 70-99 mg/dl Calcium Level 9.0 8.5-10.1 mg/dl Phosphorus Level 2.3 2.5-4.9 mg/dl Magnesium Level 1.8 1.8-2.4 mg/dl Troponin I 2.010 0-0.045 ng/ml Activated Partial Thromboplast Time 25.4 21.0-31.0 SECONDS Partial Thromboplastin Ratio 1.0
[2016-12-22] MEDS ORDERED: METOPROLOL SUCC 50MG EXT REL TAB PO SCH (09:00)
[2016-12-22] MEDS ORDERED: FUROSEMIDE INJ 20 MG in SYRINGE 0 ML IV ONE (09:00)
[2016-12-22] MEDS ORDERED: ACETAMINOPHEN 500 MG TAB PO ONE ×2 (09:00→10:45)
[2016-12-22] MEDS ORDERED: TRAMADOL HCL 50 MG TAB PO ONE (09:15)
--- NOTE | 2016-12-22 09:37 | DIAGNOSTIC IMAGING REPORT ---
HEAD CT NONCONTRAST CT DOSE: 638.56 mGycm HISTORY: Headache Severe head ache / heparin gtt TECHNIQUE: Multiaxial CT images of the head were performed without the use of intravenous contrast. Comparison: None. Findings: The paranasal sinuses and mastoid air cells are clear. The calvarium and skull base are intact. The ventricles and sulci are within normal limits. There is no mass, hematoma, midline shift, or acute infarct. Small arachnoid cyst base left temporal fossa. Impression: No acute intracranial abnormality. Electronically signed by: Morris Vázquez M.D. 12/22/2016 9:36 AM Dictated Date/Time: 12/22/2016 9:35 AM
[2016-12-22 09:57] LABS: HEMATOCRIT 32.8 % (37-47); MEAN CORPUSCULAR HEMOGLOBIN 30.7 pg (25-34); MEAN CORPUSCULAR HGB CONC 32.6 g/dl (32-36); MEAN PLATELET VOLUME 9.2 fL (7.4-10.4); PLATELET COUNT 169 K/uL (130-400); RED BLOOD COUNT 3.49 M/uL (4.2-5.4); WHITE BLOOD COUNT 6.33 K/uL (4.8-10.8)
[2016-12-22 10:30] LABS: ALB/GLOB RATIO 0.9 (0.9-2); BUN/CREATININE RATIO 17.9 (10-20); CREATININE 0.98 mg/dl (0.60-1.20); MAGNESIUM 1.8 mg/dl (1.8-2.4); POTASSIUM 4.5 mmol/L (3.5-5.1)
[2016-12-22] MEDS ORDERED: METOPROLOL SUCC 50MG EXT REL TAB PO ONE (10:45)
[2016-12-22] MEDS ORDERED: HydrALAZINE HCL 20 MG/ML VIAL IV. PRN (10:45)
[2016-12-22] MEDS ORDERED: ACETAMINOPHEN IV 100 ML IV ONE (11:00)
[2016-12-22] MEDS: NITROGLYCERIN 2% OINTMENT 30GM TUBE EXT SCH ×2 (12:02→18:07)
[2016-12-22 13:11] LABS: PARTIAL THROMBOPLASTIN RATIO 1.5
[2016-12-22] MEDS ORDERED: HEPARIN IV BOLUS 4,000 UNIT in SYRINGE 0 ML IV ONE (14:00)
--- NOTE | 2016-12-22 14:00 | Cardiology Follow-Up ---
Subjective Date of Service: December 22, 2016. Pt evaluation today including: conversation w/ patient, conversation w/ family , physical exam, lab review, review of studies, conversation w/ medical sales consultant, review of inpatient medication list History of Present Illness This is a very pleasant 86-year-old woman who has a long history of hypertension , hypothyroidism and palpitations. She had been evaluated in our office several times in the past but is seen intermittently, she was seen in 2011 and then in 2014 and is scheduled for visit this week with Dr. Sommers. Her palpitations have been recorded as being due to premature beats, typically atrial premature beats and periods of atrial tachycardia. Her symptoms seem to correlate with these rhythms in the past, however based on her records she also describes her heart "pumping really hard" which is less frequent than the palpitations. More recently she has been having difficulty with her gallbladder and surgery has been recommended, in fact she has an appointment with Dr. Kahn today for that. In addition however her palpitations have become increasingly worse and she notices a rapid heart rate (which she also describes as her heart pumping very hard) frequently over the last 6 weeks. She doesn't think she had this before, although based on her record she may have. She was seen in [facility] where she was told she had SVT and she would probably need to have it ablated. She has noticed over the last several days that the palpitations are present more often than they're not, and she came into the emergency room today. In the emergency room she was noted to have supraventricular tachycardia which terminated on several occasions with adenosine but restarted. Intravenous beta- blockade (metoprolol 10 mg) helped somewhat with slowing of the rate down to about 120 bpm from 150 and with spontaneous termination but reinitiation occurring. She did not have lightheadedness or dizziness, has not had presyncope or syncope. She did not have chest discomfort. She underwent electrophysiologic study and ablation on 12/21/2016. 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 Ablation was performed with elimination of antegrade dual AV abdoul pathways, improvement in fast pathway conduction and no inducibility from the atrium. Surprisingly she had another type of SVT which also appeared to be AV abdoul reentry which was only induced from the ventricle but could be reproducibly induced. The rate was slower (right 125 bpm) and this may be a non-clinical arrhythmia although we can't be sure. A brief attempt was made to ablate this arrhythmia however the ablation sites appear to be located very near the normal conduction system therefore no further ablation was done as the need for pacemaker is likely and this may not be a clinically relevant arrhythmia. Overnight she has had no further SVT. She did however this morning in the early childhood education specialist hours have an episode of severe shortness of breath and nausea, on electrocardiography she did have inferolateral T-wave inversions and her troponin elevated to 2. She specifically reports that she did not have chest discomfort. Her weight is up somewhat since admission (about 2 kg) and her blood pressure was very high at the time of this event. This morning she feels better, her blood pressure is better and she has no specific complaints. She has no discomfort at her groin sites. Social History Smoking Status: Never Smoker History of Alcohol Use: No Review of Systems Respiratory: No cough, No shortness of breath Cardiac: No chest pain Objective Vital Signs Past 12 Hours Date Time Temp Pulse Resp B/P Pulse Ox O2 Delivery O2 Flow Rate FiO2 12/22/16 12:00 61 161/66 93 12/22/16 11:30 67 18 182/83 12/22/16 11:08 180/70 12/22/16 11:01 69 20 154/116 96 12/22/16 11:00 76 20 12/22/16 10:00 68 15 175/72 12/22/16 09:40 78 28 172/74 96 12/22/16 09:01 73 18 167/68 95 12/22/16 08:30 68 23 137/113 12/22/16 08:01 79 17 165/96 95 12/22/16 08:00 37.0 12/22/16 08:00 73 18 12/22/16 08:00 Room Air 12/22/16 03:59 Room Air 12/22/16 03:02 69 21 209/80 94 12/22/16 03:00 65 19 209/80 95 Room Air 68 12/22/16 02:14 80 184/92 12/22/16 02:01 184/92 12/22/16 02:00 84 17 Last Recorded Weight-Kilograms: 80.400 Intake & Output 8-Hour Column 12/21/16 12/22/16 12/22/16 16:00 00:00 08:00 Intake Total 500 ml 350 ml Output Total 350 ml 400 ml Balance 150 ml -50 ml 24-Hour Column 12/22/16 08:00 Intake Total 850 ml Output Total 750 ml Balance 100 ml Physical Exam Constitutional: General Apperance: heathly-appearing Level of Distress: NAD Lungs: Respiratory effort: no dyspnea, good air movement Auscultation: no wheezing, rales/crackles on the left, rales/crackles on the right Cardiovascular: Heart Auscultation: RRR, no murmurs, no rubs, no gallops, tachycardia Peripheral Pulses: Bruits: none appreciated Extremities: no edema Data Laboratory Results: Last 24 Hours Test 12/22/16 04:17 12/22/16 06:00 12/22/16 09:52 12/22/16 11:20 White Blood Count 7.18 K/uL 6.33 K/uL Red Blood Count 3.63 M/uL 3.49 M/uL Hemoglobin 11.4 g/dL 10.7 g/dL Hematocrit 34.1 % 32.8 % Mean Corpuscular Volume 93.9 fL 94.0 fL Mean Corpuscular Hemoglobin 31.4 pg 30.7 pg Mean Corpuscular Hemoglobin Concent 33.4 g/dl 32.6 g/dl RDW Standard Deviation 52.1 fL 52.3 fL RDW Coefficient of Variation 15.2 % 15.2 % Platelet Count 187 K/uL 169 K/uL Mean Platelet Volume 9.2 fL 9.2 fL Sodium Level 141 mmol/L 141 mmol/L Potassium Level 3.9 mmol/L 4.5 mmol/L Chloride Level 107 mmol/L 109 mmol/L Carbon Dioxide Level 24 mmol/L 24 mmol/L Anion Gap 10.0 mmol/L 8.0 mmol/L Blood Urea Nitrogen 20 mg/dl 18 mg/dl Creatinine 1.00 mg/dl 0.98 mg/dl Est Creatinine Clear Calc Drug Dose 39.8 ml/min 41.2 ml/min Estimated GFR () 59.5 61.0 Estimated GFR (Non- 51.3 52.6 BUN/Creatinine Ratio 19.8 17.9 Random Glucose 96 mg/dl 81 mg/dl Calcium Level 9.0 mg/dl 9.0 mg/dl Phosphorus Level 2.3 mg/dl Magnesium Level 1.8 mg/dl 1.8 mg/dl Troponin I 2.010 ng/ml 1.960 ng/ml Activated Partial Thromboplast Time 25.4 SECONDS Partial Thromboplastin Ratio 1.0 Total Bilirubin 1.2 mg/dl Aspartate Amino Transf (AST/SGOT) 61 U/L Alanine Aminotransferase (ALT/SGPT) 76 U/L Alkaline Phosphatase 254 U/L Total Protein 6.3 gm/dl Albumin 3.0 gm/dl Globulin 3.3 gm/dl Albumin/Globulin Ratio 0.9 Bedside Glucose 75 mg/dl Test 12/22/16 12:57 Activated Partial Thromboplast Time 38.0 SECONDS Partial Thromboplastin Ratio 1.5 Imaging: An echocardiogram done today to look at the left ventricle and for pericardial fluid was negative, with no evidence of wall motion abnormalities on my preliminary review. EKG: During her symptoms in the early childhood education specialist hours she had sinus rhythm with inferolateral T-wave inversion, on a subsequent electrocardiogram these have resolved. Telemetry reviewed: Sinus rhythm, no further SVT since ablation Assessment and Plan #1. SVT: Her clinical SVT (which she arrived in the laboratory in) was typical AV abdoul reentry and she had associated antegrade dual AV abdoul pathways and moderate baseline fast pathway dysfunction however after ablation she had no evidence of antegrade dual pathways, and improvement in her fast pathway and no inducibility from the atrium. She does however have another SVT which is induced only from the ventricle, but was reproducibly induced and appears to be a different form of typical AV abdoul reentry at a slower heart rate. I don't know that this is a clinical arrhythmia although it is possible. Ablation of this will have a higher likelihood of causing heart block based on location of the pathway, therefore that was not done but if it becomes a clinical problem it could be done although a pacemaker may be necessary afterwards. So far she has had no further recurrence. #2. Shortness of breath, elevated troponin: Her episode in the early childhood education specialist hours is of uncertain cause. One possibility is that she does have underlying coronary disease and she had an ischemic event, this is supported by her electrocardiographic changes and her elevated troponin and her symptoms ( although she did not have chest discomfort). Another possibility is that it was due to demand ischemia from her shortness of breath and severe hypertension, possibly anxiety induced, with or without underlying coronary artery disease. With her upcoming gallbladder surgery and the uncertainty as to regard to the origin of her symptoms I think we need to exclude significant coronary artery disease and I've recommended cardiac catheterization. #3. Palpitations: Historically the majority of her palpitations appear to be premature atrial beats, but perhaps some of it was SVT although she doesn't specifically recall that and I don't think it was recorded. Her palpitations have not been much of a problem lately and generally they do not bother her very much although she notices that. #4. Gallbladder disease: She has concomitant gallbladder disease, and surgery has been recommended. Once we have fully evaluated her cardiac condition ( coronary evaluation pending) she will need to have this done. Thank you for allowing me to participate in her care.
[2016-12-22] MEDS ORDERED: HEPARIN SOD (PORCINE) 1000 UNIT/ML 10 ML VIAL ONE (15:13)
[2016-12-22] MEDS ORDERED: NiCARDipine HCL INJ 2.5 MG/ML 10 ML AMP ONE (15:13)
[2016-12-22] MEDS ORDERED: MIDAZOLAM HCL 1 MG/ML 2ML VIAL ONE (15:14)
[2016-12-22] MEDS ORDERED: NITROGLYCERIN/D5W 100MCG/ML 20ML SYR ONE (15:14)
[2016-12-22] MEDS ORDERED: FENTANYL CITRATE INJ 50 MCG/1 ML 2 ML VIAL ONE (15:15)
--- NOTE | 2016-12-22 16:02 | Procedure Note ---
Pre-Mod Sedation Assessment General Date of Moderate Sedation: December 22, 2016. Vital Signs: Vital Signs Past 12 Hours Date Time Temp Pulse Resp B/P Pulse Ox O2 Delivery O2 Flow Rate FiO2 12/22/16 12:00 61 161/66 93 12/22/16 11:30 67 18 182/83 12/22/16 11:08 180/70 12/22/16 11:01 69 20 154/116 96 12/22/16 11:00 76 20 12/22/16 10:00 68 15 175/72 12/22/16 09:40 78 28 172/74 96 12/22/16 09:01 73 18 167/68 95 12/22/16 08:30 68 23 137/113 12/22/16 08:01 79 17 165/96 95 12/22/16 08:00 37.0 12/22/16 08:00 73 18 12/22/16 08:00 Room Air Review Cardiovascular: regular rate, rhythm, no edema Abdomen: normal bowel sounds, non tender Lungs: chest non-tender, lungs clear Airway Class: II Pre-Sedation Airway Assessment Oral Cavity: Dentures Able to Visualize Vocal Cords: Yes Short Thick Neck: No Hx of Sleep Apnea: No Smoking Status: Never Smoker Mallampati Classification: Class III ASA Classification: Class III Procedure Planning Contraindications-for Mod Sed: None Yes Notes The planned sedation has been discussed with the patient and consent obtained. I have identified the patient, determined the appropriateness of sedation and have assessed the patient immediately prior to the procedure. All medicine(s) and interventions are by my order.
--- NOTE | 2016-12-22 16:03 | Procedure Note ---
Post-Mod Sedation Assessment General Date of Moderate Sedation December 22, 2016. Vital Signs: Vital Signs Past 12 Hours Date Time Temp Pulse Resp B/P Pulse Ox O2 Delivery O2 Flow Rate FiO2 12/22/16 12:00 61 161/66 93 12/22/16 11:30 67 18 182/83 12/22/16 11:08 180/70 12/22/16 11:01 69 20 154/116 96 12/22/16 11:00 76 20 12/22/16 10:00 68 15 175/72 12/22/16 09:40 78 28 172/74 96 12/22/16 09:01 73 18 167/68 95 12/22/16 08:30 68 23 137/113 12/22/16 08:01 79 17 165/96 95 12/22/16 08:00 37.0 12/22/16 08:00 73 18 12/22/16 08:00 Room Air Review - Discharge Criteria Vital Signs Stable: Yes Alert/Oriented/Conversant: Yes Returned to Baseline Mental St: Yes Nausea Absent/Minimal: Yes Pain/Discomfort/Absent/Minimal: Yes Normal/Baseline Respirations: Yes Active Bleeding?: No Pt Received D/C Instructions: N/A Prescriptions Given: None Specific Proced. D/C Criteria Distal Pulses Present (Cardiac: Yes Groin site assessed-Card Cath: N/A Voided Prior To Discharge: N/A Discharged Patients Adult Escort/Transportation: Yes
--- NOTE | 2016-12-22 16:38 | Cardiac Catheterization ---
Procedure Note Procedure Date December 22, 2016. Pre-Procedure Diagnosis Non STEMI AUC Score 7 Post-Procedure Diagnosis Severe CAD, Elevated Intracardiac Pressures Procedure(s) Performed Coronary Angiography, Left Heart Cath Embroidery Operator Dr. Liao [employer] Supervisor(s) Kristi Estimated Blood Loss 20 Medication(s) Fentanyl, Heparin, Nitroglycerin, Versed, Lidocaine 1% Summary of Findings Indication: Uncontrolled hypertension, Elevated troponin/ECG changes Access: 6Fr slender right radial artery Catheters: [place] Findings: LM - Luminal irregularities LAD - Severely calcified proximally, focal 70-80% mid segment stenosis, distal luminal irregularities as vessel wraps around the apex. Severe ostial stenosis of small 2nd diagonal. Circumflex - Severely calcified, ostial 70% stenosis involving take-off of high 1st OM. 1st OM with 80% ostial stenosis RCA - Dominant, calcified 20% ostial stenosis; mid segment with 30-40% calcified stenosis; distal luminal irregularities. LVEDP - 25 Arterial Closure: TR Band Summary: 1. Severe 2 vessel coronary artery disease - 70-80% focal mid LAD stenosis - 70% heavily calcified ostial circumflex stenosis 2. Elevated intracardiac filling pressure Recommendations: LAD/circumflex lesions appear chronic. Suspect troponin/ECG changes a result of demand ischemia in the setting of stable CAD and uncontrolled hypertension. Revascularization of circumflex would be high risk -- Recommend medical management with improved blood pressure control, reduced LV filling pressures. With stable disease, when hemodynamics/volume status improved, feel could safely undergo planned upper endoscopy/ERCP. Continue on aspirin, high-intensity statin, beta-ayse in josie-procedure setting. If limiting symptoms as an outpatient would consider high-risk PCI vs CABG Hemodynamics Rest Ao: 155/57/96 Final Ao: 153/53/95 LV: 164/10/25 Recommendations PCI without planned CABG Specimens None Radiation Exposure (mGy) 976 Contrast (mls) 60 Visi Fluids (cc crystalloids) 65 Drains none Anesthesia moderate Procedural Complication(s) None Disposition ICU ACC Data Cardiac Status Clinical evaluation leading to the procedure CAD Presntation: Non STEMI Anginal Classification: CCS III Heart Failure: No, NYHA Class: CCS I Cardiogenic Shock w/in 24Hrs: No Cardiac Arrest w/in 24Hrs: No Imaging studies past 6 months: Yes Stress studies past 6 months: No Standard Exercise Stress Test: No Stress Echocardiogram: No Stress Testing w/SPECT MPI: Yes - Negative Cardiac CTA: No Coronary Anatomy Dominant: Right Left Main (% Stenosis): Normal LAD (% Stenosis): Mid (70-80) D2 (% Stenosis): Ostial (80) Circumflex (% Stenosis): Ostial (70) RCA (% Stenosis): Mid (30-40) Diagnostic Physician's Name: Loki Liao MD Status: Elective Closure Device Percutaneous Entry Location: Radial Closure Device: Radial Band Recommendations: Medical therapy and/or Counseling Intraprocedure Events Significant Dissection: No Perforation: No
--- NOTE | 2016-12-22 18:31 | ECHOCARDIOGRAM REPORT ---
*NOTICE TO RECEIVING CONSTITUTION PARTY AGENCY This information is strictly Confidential and protected under [place] law. [place] law prohibits you from making any further disclosure of this information unless further disclosure is expressly permitted by the written consent of the person to whom it pertains or is authorized by law. A general authorization for the release of medical or other information is not sufficient for this purpose. Hospital accepts no responsibility if the information is made available to any other person, INCLUDING THE PATIENT. Interpretation Summary * Name: BENJAMIN MOSES Study Date: 12/22/2016 10:41 AM BP: 175/72 mmHg * [facility] HR: 68 * : 1930 (M/d/yyy) Gender: Female Height: 62 in * Age: 86 yrs Ethnicity: [place] Weight: 177 lb * Ordering Physician: Krish Mcdowell * Performed By: Nayeli Us * * Reason For Study: LIMITED- SOB AFTER EP STUDY, ELEVATED TROP, R/O EFFUSION * BSA: 1.8 m2 * 1. This was a limited 2D study only. No Doppler or color flow exam performed. * 2. The left ventricular size, systolic function, and wall motion are normal. LV ejection fraction 60-65%. * 3. Moderate concentric left ventricular ectopy. * 4. Mild left atrial dilatation. * 5. Normal right ventricular size and systolic function. Procedure Details * Limited views were obtained. Left Ventricle * The left ventricle is normal in size. * There is moderate concentric left ventricular hypertrophy. * Ejection Fraction = 60-65%. * The left ventricular wall motion is normal. Right Ventricle * The right ventricle is normal in size and function. Atria * The left atrium is mildly dilated. * Right atrial size is normal. Mitral Valve * There is mild mitral annular calcification. * There is no mitral valve stenosis. Aortic Valve * The aortic valve opens well. Great Vessels * The aortic root is normal size. Pericardium/Pleural * There is no pericardial effusion. Great Vessels * The inferior vena cava is mildly dilated. * Normal inspiratory collapse. MMode 2D Measurements and Calculations IVSd 1.6 cm IVSs 2.7 cm LVIDd 4.3 cm LVIDs 2.9 cm LVPWd 1.5 cm LVPWs 1.4 cm IVS/LVPW 1.1 FS 31.7 % EDV(Teich) 81.4 ml ESV(Teich) 32.5 ml EF(Teich) 60.0 % EDV(cubed) 77.5 ml ESV(cubed) 24.7 ml EF(cubed) 68.1 % % IVS thick 63.5 % % LVPW thick -11.34 % LV mass(C)d 278.3 grams LV mass(C)dI 153.4 grams/m\S\2 LV mass(C)s 258.6 grams LV mass(C)sI 142.5 grams/m\S\2 CO(Teich) 3.1 l/min CI(Teich) 1.7 l/min/m\S\2 SV(Teich) 48.8 ml SI(Teich) 26.9 ml/m\S\2 CO(cubed) 3.4 l/min CI(cubed) 1.9 l/min/m\S\2 SV(cubed) 52.8 ml SI(cubed) 29.1 ml/m\S\2 Ao root diam 3.5 cm Ao root area 9.8 cm\S\2 LA dimension 4.1 cm asc Aorta Diam 3.3 cm LA/Ao 1.2 LVAd ap4 24.0 cm\S\2 LVLd ap4 6.6 cm EDV(MOD-sp4) 71.6 ml LVAs ap4 13.4 cm\S\2 LVLs ap4 5.8 cm ESV(MOD-sp4) 29.0 ml EF(MOD-sp4) 59.5 % LVAd ap2 27.5 cm\S\2 LVLd ap2 7.4 cm EDV(MOD-sp2) 85.9 ml LVAs ap2 14.9 cm\S\2 LVLs ap2 6.2 cm ESV(MOD-sp2) 32.0 ml EF(MOD-sp2) 62.7 % CO(MOD-sp4) 2.7 l/min CI(MOD-sp4) 1.5 l/min/m\S\2 SV(MOD-sp4) 42.6 ml SI(MOD-sp4) 23.5 ml/m\S\2 CO(MOD-sp2) 3.4 l/min CI(MOD-sp2) 1.9 l/min/m\S\2 SV(MOD-sp2) 53.9 ml SI(MOD-sp2) 29.7 ml/m\S\2
[2016-12-22] MEDS: HydrALAZINE HCL 20 MG/ML VIAL IV. PRN ×2 (21:46→21:49)
[2016-12-22] MEDS ORDERED: PROMETHAZINE HCL INJ 25 MG in SODIUM CHLORIDE 0.9% 50ML 50 ML IV PRN (22:30)
[2016-12-22] MEDS ORDERED: HYDROmorphone INJ 1 MG/ML SYR IV STA (23:29)
[2016-12-22] MEDS ORDERED: DiphenhydrAMINE INJ 25 MG in SYRINGE 0 ML IV ONE (23:30)
[2016-12-22] MEDS ORDERED: HYDROmorphone INJ 0.5 MG/0.5 ML SYR ONE (23:40)
[2016-12-22] MEDS ORDERED: DiphenhydrAMINE HCL 50 MG/ML VIAL ONE (23:41)
[2016-12-22] MEDS ORDERED: DiphenhydrAMINE HCL 50 MG/ML VIAL IV STA (23:47)
[2016-12-23] VITALS (21 sets, daily range): BP systolic 140–190; BP diastolic 47–95; PULSE 62–95; TEMP 36.5–36.9; O2SAT 92–97
[2016-12-23] MEDS: NITROGLYCERIN 2% OINTMENT 30GM TUBE EXT SCH ×4 (00:52→18:03)
[2016-12-23] MEDS: NSS + 20MEQ KCL 1000ML 1,000 ML IV SCH ×2 (03:29→14:24)
[2016-12-23 05:47] LABS: MEAN CELL VOLUME 93.8 fL (80-100); MEAN CORPUSCULAR HEMOGLOBIN 29.9 pg (25-34); MEAN CORPUSCULAR HGB CONC 31.9 g/dl (32-36); MEAN PLATELET VOLUME 9.3 fL (7.4-10.4); PLATELET COUNT 187 K/uL (130-400); RED BLOOD COUNT 3.41 M/uL (4.2-5.4); WHITE BLOOD COUNT 6.24 K/uL (4.8-10.8)
[2016-12-23 06:21] LABS: BUN/CREATININE RATIO 15.4 (10-20); CALCIUM 8.4 mg/dl (8.5-10.1); CREATININE 1.1 mg/dl (0.60-1.20); MAGNESIUM 1.5 mg/dl (1.8-2.4); POTASSIUM 4.6 mmol/L (3.5-5.1)
[2016-12-23 06:29] LABS: ALB/GLOB RATIO 0.9 (0.9-2)
[2016-12-23] MEDS: RESTASIS-ORDER AWAITING ACTION SCH ×3 (08:00→15:05)
--- NOTE | 2016-12-23 08:05 | Progress Note ---
Internal Med Progress Note Date of Service: December 23, 2016. Provider Documentation: SUBJECTIVE: Seen and examined at bedside. States could not sleep well yesterday. Complains of nausea, headache. Denies blurry vision, SOB, chest pain. Complains of epigastric abd pain. States not able to tolerate food. OBJECTIVE: Vital Signs-as noted below Physical Exam: General Appearance:Moderately built and nourished, no apparent distress Head: normocephalic, Atraumatic Eyes: normal inspection, EOMI, PERRL Neck: supple, Trachea midline Respiratory/Chest: Normal breath sounds, CTA Cardiovascular: S1, S2, No murmur Abdomen/GI:Soft, mild epigastric tender, Bowel sounds present Extremities/Musculoskelatal:normal inspection, Trace edema Neurologic/Psych:AAOX3, grossly no focal neurological deficits Skin: normal color, warm Lab data as noted below. ASSESSMENT & PLAN: SVT Presented with H/O palpitations since 6 weeks and had nausea, vomiting, palpitations 1 day prior to admission Admitted at [facility] for SVT and BB changed from Nadolol to metoprolol Found to be in SVT in ED: Treated with adenosine x 2 and metoprolol x 2. and was on esmolol drip S/P Ablation on 12/21/16 Troponin elevated:Likely demand ischemia S/P Cardiac catheterization: 12/22/16: Severe 2 vessel CAD ( 70-80% focal mid LAD stenosis, 70% ostial circumflex stenosis) ECHO: EF: 60-65%. Appreciate Cardiology Dr. Mcdowell help Plan to statins after GI issues are addressed Continue Metoprolol 75mg BID CHOLELITHIASIS, CHOLEDOCHOLITHIASIS/TRANSAMINITIS 11MM stone in CBD on MRI Plan for ERCP after cardiac issues addressed Monitor LFTs: trending down Appreciate GI/Surgery input Plan for outpatient elective cholecystectomy HEADACHE: Transient Blurry vision No focal deficits CT head: unremarkable HTN On metoprolol, HCTZ RIGHT KIDNEY LESION: 1.8 cm systic lesion noted on upper pole of R kidney on MRI Needs follow up ultrasound as outpatient in 3-6 months Renal function wnl HYPOTHYROIDISM low TSH Normal T3,T4 Continue Synthroid Need to repeat thyroid function as outpatient DVT PX SQ Heparin SCDs CODE STATUS Full code DISPOSITION: Continue cardiac monitoring in ICU Vital Signs: Date Time Temp Pulse Resp B/P Pulse Ox O2 Delivery O2 Flow Rate FiO2 12/23/16 08:05 36.7 68 22 161/69 96 Room Air 12/23/16 08:00 Room Air 12/23/16 04:09 95 Room Air 12/23/16 04:01 68 15 148/47 95 12/23/16 04:00 36.7 68 17 95 12/23/16 03:19 87 17 148/71 94 12/23/16 03:01 80 16 181/78 95 12/23/16 03:00 79 18 95 12/23/16 02:31 71 17 162/69 93 12/23/16 02:00 83 12 162/73 94 12/23/16 01:30 87 15 142/78 92 12/23/16 01:00 89 15 155/73 96 12/23/16 00:31 92 14 140/79 95 12/23/16 00:01 36.5 95 20 157/74 94 12/23/16 00:00 95 15 93 12/22/16 23:31 101 28 160/85 12/22/16 23:00 97 21 156/100 95 12/22/16 22:00 79 22 186/80 95 12/22/16 21:31 64 18 183/68 95 12/22/16 21:00 71 13 94 12/22/16 20:31 72 17 182/81 94 12/22/16 20:00 36.6 75 17 165/70 94 12/22/16 19:30 69 16 148/55 93 12/22/16 19:00 75 21 148/90 94 12/22/16 18:00 77 21 150/74 94 12/22/16 17:22 36.5 12/22/16 17:15 71 19 158/58 95 12/22/16 17:13 71 21 125/99 95 12/22/16 17:00 75 20 95 12/22/16 16:45 61 14 176/74 93 12/22/16 16:37 62 24 184/100 96 12/22/16 16:30 69 16 180/118 94 12/22/16 16:15 69 22 12/22/16 16:13 62 23 195/79 12/22/16 16:05 68 16 132/80 96 Room Air 12/22/16 15:55 64 16 145/80 95 Room Air 12/22/16 12:00 61 161/66 93 12/22/16 11:30 67 18 182/83 12/22/16 11:08 180/70 12/22/16 11:01 69 20 154/116 96 12/22/16 11:00 76 20 12/22/16 10:00 68 15 175/72 12/22/16 09:40 78 28 172/74 96 12/22/16 09:01 73 18 167/68 95 Lab Results: Results Past 24 Hours Test 12/22/16 09:52 12/22/16 11:20 12/22/16 12:57 12/22/16 20:42 Range/Units White Blood Count 6.33 4.8-10.8 K/uL Red Blood Count 3.49 4.2-5.4 M/uL Hemoglobin 10.7 12.0-16.0 g/dL Hematocrit 32.8 37-47 % Mean Corpuscular Volume 94.0 80-100 fL Mean Corpuscular Hemoglobin 30.7 25-34 pg Mean Corpuscular Hemoglobin Concent 32.6 32-36 g/dl RDW Standard Deviation 52.3 36.4-46.3 fL RDW Coefficient of Variation 15.2 11.5-14.5 % Platelet Count 169 130-400 K/uL Mean Platelet Volume 9.2 7.4-10.4 fL Sodium Level 141 136-145 mmol/L Potassium Level 4.5 3.5-5.1 mmol/L Chloride Level 109 98-107 mmol/L Carbon Dioxide Level 24 21-32 mmol/L Anion Gap 8.0 3-11 mmol/L Blood Urea Nitrogen 18 7-18 mg/dl Creatinine 0.98 0.60-1.20 mg/dl Est Creatinine Clear Calc Drug Dose 41.2 ml/min Estimated GFR () 61.0 Estimated GFR (Non- 52.6 BUN/Creatinine Ratio 17.9 10-20 Random Glucose 81 70-99 mg/dl Calcium Level 9.0 8.5-10.1 mg/dl Magnesium Level 1.8 1.8-2.4 mg/dl Total Bilirubin 1.2 0.2-1 mg/dl Aspartate Amino Transf (AST/SGOT) 61 15-37 U/L Alanine Aminotransferase (ALT/SGPT) 76 12-78 U/L Alkaline Phosphatase 254 45-117 U/L Troponin I 1.960 1.540 0-0.045 ng/ml Total Protein 6.3 6.4-8.2 gm/dl Albumin 3.0 3.4-5.0 gm/dl Globulin 3.3 2.5-4.0 gm/dl Albumin/Globulin Ratio 0.9 0.9-2 Bedside Glucose 75 70-90 mg/dl Activated Partial Thromboplast Time 38.0 21.0-31.0 SECONDS Partial Thromboplastin Ratio 1.5 Test 12/23/16 05:25 Range/Units White Blood Count 6.24 4.8-10.8 K/uL Red Blood Count 3.41 4.2-5.4 M/uL Hemoglobin 10.2 12.0-16.0 g/dL Hematocrit 32.0 37-47 % Mean Corpuscular Volume 93.8 80-100 fL Mean Corpuscular Hemoglobin 29.9 25-34 pg Mean Corpuscular Hemoglobin Concent 31.9 32-36 g/dl RDW Standard Deviation 53.3 36.4-46.3 fL RDW Coefficient of Variation 15.4 11.5-14.5 % Platelet Count 187 130-400 K/uL Mean Platelet Volume 9.3 7.4-10.4 fL Activated Partial Thromboplast Time 25.2 21.0-31.0 SECONDS Partial Thromboplastin Ratio 1.0 Sodium Level 140 136-145 mmol/L Potassium Level 4.6 3.5-5.1 mmol/L Chloride Level 108 98-107 mmol/L Carbon Dioxide Level 23 21-32 mmol/L Anion Gap 9.0 3-11 mmol/L Blood Urea Nitrogen 17 7-18 mg/dl Creatinine 1.10 0.60-1.20 mg/dl Est Creatinine Clear Calc Drug Dose 36.4 ml/min Estimated GFR () 53.0 Estimated GFR (Non- 45.7 BUN/Creatinine Ratio 15.4 10-20 Random Glucose 76 70-99 mg/dl Calcium Level 8.4 8.5-10.1 mg/dl Magnesium Level 1.5 1.8-2.4 mg/dl Total Bilirubin 1.1 0.2-1 mg/dl Direct Bilirubin 0.5 0-0.2 mg/dl Aspartate Amino Transf (AST/SGOT) 35 15-37 U/L Alanine Aminotransferase (ALT/SGPT) 58 12-78 U/L Alkaline Phosphatase 225 45-117 U/L Troponin I 1.350 0-0.045 ng/ml Total Protein 6.0 6.4-8.2 gm/dl Albumin 2.9 3.4-5.0 gm/dl Globulin 3.1 2.5-4.0 gm/dl Albumin/Globulin Ratio 0.9 0.9-2
[2016-12-23] MEDS: HYDROCHLOROTHIAZIDE 25 MG TAB PO SCH (08:06)
[2016-12-23] MEDS: ASPIRIN 81 MG ECTAB PO SCH (08:06)
[2016-12-23] MEDS: ALLOPURINOL 100 MG TAB PO SCH (08:06)
[2016-12-23] MEDS: ARMOUR THYROID 30 MG TAB PO SCH (08:08)
[2016-12-23] MEDS: PANTOprazole SOD 40 MG TAB PO SCH (08:08)
[2016-12-23] MEDS ORDERED: MAGNESIUM SULFATE 1GM / D5W 1 GM in PREMIXED IN D5W 100 ML IV ONE (09:00)
[2016-12-23] MEDS ORDERED: METOPROLOL TARTRATE 50 MG TAB PO SCH (09:00)
--- NOTE | 2016-12-23 10:45 | Surgery Progress Note ---
Surgery Progress Note Date of Service December 23, 2016. Subjective pt doing ok...had trouble sleeping last night b/c of a headache. had cardiac cath yesterday... Objective Vital Signs: Date Time Temp Pulse Resp B/P Pulse Ox O2 Delivery O2 Flow Rate FiO2 12/23/16 08:05 36.7 68 22 161/69 96 Room Air 12/23/16 08:00 Room Air 12/23/16 04:09 95 Room Air 12/23/16 04:01 68 15 148/47 95 12/23/16 04:00 36.7 68 17 95 12/23/16 03:19 87 17 148/71 94 12/23/16 03:01 80 16 181/78 95 12/23/16 03:00 79 18 95 12/23/16 02:31 71 17 162/69 93 12/23/16 02:00 83 12 162/73 94 12/23/16 01:30 87 15 142/78 92 12/23/16 01:00 89 15 155/73 96 12/23/16 00:31 92 14 140/79 95 12/23/16 00:01 36.5 95 20 157/74 94 12/23/16 00:00 95 15 93 12/22/16 23:31 101 28 160/85 12/22/16 23:00 97 21 156/100 95 12/22/16 22:00 79 22 186/80 95 12/22/16 21:31 64 18 183/68 95 12/22/16 21:00 71 13 94 12/22/16 20:31 72 17 182/81 94 12/22/16 20:00 36.6 75 17 165/70 94 12/22/16 19:30 69 16 148/55 93 12/22/16 19:00 75 21 148/90 94 12/22/16 18:00 77 21 150/74 94 12/22/16 17:22 36.5 12/22/16 17:15 71 19 158/58 95 12/22/16 17:13 71 21 125/99 95 12/22/16 17:00 75 20 95 12/22/16 16:45 61 14 176/74 93 12/22/16 16:37 62 24 184/100 96 12/22/16 16:30 69 16 180/118 94 12/22/16 16:15 69 22 12/22/16 16:13 62 23 195/79 12/22/16 16:05 68 16 132/80 96 Room Air 12/22/16 15:55 64 16 145/80 95 Room Air 12/22/16 12:00 61 161/66 93 12/22/16 11:30 67 18 182/83 12/22/16 11:08 180/70 12/22/16 11:01 69 20 154/116 96 12/22/16 11:00 76 20 General Appearance: no apparent distress Head: normocephalic, atraumatic Neck: supple, no JVD Respiratory/Chest: no respiratory distress, no accessory muscle use Abdomen: non tender, non distended, soft Extremities: normal range of motion, non-tender Laboratory Results: Results Past 24 Hours Test 12/22/16 11:20 12/22/16 12:57 12/22/16 20:42 12/23/16 05:25 Range/Units Bedside Glucose 75 70-90 mg/dl Activated Partial Thromboplast Time 38.0 25.2 21.0-31.0 SECONDS Partial Thromboplastin Ratio 1.5 1.0 Troponin I 1.540 1.350 0-0.045 ng/ml White Blood Count 6.24 4.8-10.8 K/uL Red Blood Count 3.41 4.2-5.4 M/uL Hemoglobin 10.2 12.0-16.0 g/dL Hematocrit 32.0 37-47 % Mean Corpuscular Volume 93.8 80-100 fL Mean Corpuscular Hemoglobin 29.9 25-34 pg Mean Corpuscular Hemoglobin Concent 31.9 32-36 g/dl RDW Standard Deviation 53.3 36.4-46.3 fL RDW Coefficient of Variation 15.4 11.5-14.5 % Platelet Count 187 130-400 K/uL Mean Platelet Volume 9.3 7.4-10.4 fL Sodium Level 140 136-145 mmol/L Potassium Level 4.6 3.5-5.1 mmol/L Chloride Level 108 98-107 mmol/L Carbon Dioxide Level 23 21-32 mmol/L Anion Gap 9.0 3-11 mmol/L Blood Urea Nitrogen 17 7-18 mg/dl Creatinine 1.10 0.60-1.20 mg/dl Est Creatinine Clear Calc Drug Dose 36.4 ml/min Estimated GFR () 53.0 Estimated GFR (Non- 45.7 BUN/Creatinine Ratio 15.4 10-20 Random Glucose 76 70-99 mg/dl Calcium Level 8.4 8.5-10.1 mg/dl Magnesium Level 1.5 1.8-2.4 mg/dl Total Bilirubin 1.1 0.2-1 mg/dl Direct Bilirubin 0.5 0-0.2 mg/dl Aspartate Amino Transf (AST/SGOT) 35 15-37 U/L Alanine Aminotransferase (ALT/SGPT) 58 12-78 U/L Alkaline Phosphatase 225 45-117 U/L Total Protein 6.0 6.4-8.2 gm/dl Albumin 2.9 3.4-5.0 gm/dl Globulin 3.1 2.5-4.0 gm/dl Albumin/Globulin Ratio 0.9 0.9-2 Assessment & Plan LFT's still elevated apparently ok from cardiac standpoint for ercp,LFT's still elevated.... will await GI input for ERCP... will d/w Dr. Gutierrez regarding lap elia after ERCP
[2016-12-23] MEDS: HydrALAZINE HCL 20 MG/ML VIAL IV. PRN (15:07)
[2016-12-23] MEDS: METOPROLOL TARTRATE 25 MG TAB PO SCH (22:33)
--- NOTE | 2016-12-23 22:47 | DIAGNOSTIC IMAGING REPORT ---
MRCP CLINICAL HISTORY: Elevated hepatic transaminases. COMPARISON STUDY: Abdominal ultrasound dated 12/20/2016. TECHNIQUE: Abdominal MRCP is performed utilizing various T2-weighted sequences in the axial and coronal planes. 3-D reformats are created and assessed. IV contrast was not administered for this examination. The examination is degraded by motion artifact. FINDINGS: The gallbladder is distended and there are numerous gallstones identified. There is mild gallbladder wall edema. No pericholecystic fluid is clearly seen. There is an 11 mm filling defect identified within the distal common bile duct, best seen on axial image #14 and coronal image #64. This is consistent with choledocholithiasis. The common bile duct is dilated, measuring up to 11 mm. There is only mild dilatation of the central intrahepatic ducts. The pancreatic duct is normal in appearance. The hepatic parenchyma is normal as imaged. Small pleural effusions are suspected. The heart is enlarged and there is a small pericardial effusion. The kidneys are atrophic. Bilateral renal cysts measure up to 3.9 cm. No upper abdominal lymphadenopathy is identified. The pancreas is normal as imaged. A tiny hiatal hernia is observed. IMPRESSION: 1. Cholelithiasis. Findings are concerning for acute cholecystitis. Clinical correlation will be required. If further assessment is desired then a nuclear hepatobiliary scan could be performed. Surgical consultation is advised. 2. There is evidence of choledocholithiasis with intrahepatic and extrahepatic biliary ductal dilatation. Dictated: 12/23/2016 9:53 PM Transcribed: 12/23/2016 10:47 PM [email or web address] Electronically signed by: Ray Edwards M.D. 12/23/2016 10:48 PM Dictated Date/Time: 12/23/2016 9:53 PM
[2016-12-24] VITALS (12 sets, daily range): BP systolic 135–187; BP diastolic 60–71; PULSE 51–72; TEMP 36.4–37.1; O2SAT 93–100
[2016-12-24] MEDS: NITROGLYCERIN 2% OINTMENT 30GM TUBE EXT SCH ×4 (00:08→19:40)
[2016-12-24] MEDS: NSS + 20MEQ KCL 1000ML 1,000 ML IV SCH (02:20)
[2016-12-24] MEDS ORDERED: SIMETHICONE 80 MG CHEW PO PRN (02:45)
[2016-12-24] MEDS ORDERED: POLYETHYLENE (MIRALAX) 17 GM PACK PO PRN (03:15)
[2016-12-24] MEDS: ACETAMINOPHEN 325 MG TAB PO PRN (04:02)
[2016-12-24 06:53] LABS: HEMATOCRIT 32.3 % (37-47); MEAN CELL VOLUME 94.4 fL (80-100); MEAN CORPUSCULAR HEMOGLOBIN 31.6 pg (25-34); MEAN CORPUSCULAR HGB CONC 33.4 g/dl (32-36); MEAN PLATELET VOLUME 9.6 fL (7.4-10.4); PLATELET COUNT 173 K/uL (130-400); RED BLOOD COUNT 3.42 M/uL (4.2-5.4); WHITE BLOOD COUNT 9.46 K/uL (4.8-10.8)
[2016-12-24 07:37] LABS: BUN/CREATININE RATIO 15.5 (10-20); CALCIUM 8.9 mg/dl (8.5-10.1); MAGNESIUM 1.7 mg/dl (1.8-2.4); POTASSIUM 4.6 mmol/L (3.5-5.1)
[2016-12-24] MEDS: RESTASIS-ORDER AWAITING ACTION SCH ×4 (08:00→23:55)
--- NOTE | 2016-12-24 08:33 | Progress Note ---
Internal Med Progress Note Date of Service: December 24, 2016. Provider Documentation: SUBJECTIVE: Seen and examined at bedside. States she had nausea and vomiting overnight. Complains of nausea, epigastric pain. Denies SOB, chest pain. Not able to tolerate food well. Offers no other complaints. OBJECTIVE: Vital Signs-as noted below Physical Exam: General Appearance:Moderately built and nourished, no apparent distress Head: normocephalic, Atraumatic Eyes: normal inspection, EOMI, PERRL Neck: supple, Trachea midline Respiratory/Chest: Normal breath sounds, CTA Cardiovascular: S1, S2, No murmur Abdomen/GI:Soft, mild epigastric tender, Bowel sounds present Extremities/Musculoskelatal:normal inspection, Trace edema Neurologic/Psych:AAOX3, grossly no focal neurological deficits Skin: normal color, warm Lab data as noted below. ASSESSMENT & PLAN: SVT Presented with H/O palpitations since 6 weeks and had nausea, vomiting, palpitations 1 day prior to admission Admitted at [facility] for SVT and BB changed from Nadolol to metoprolol Found to be in SVT in ED: Treated with adenosine x 2 and metoprolol x 2. and was on esmolol drip S/P Ablation on 12/21/16 Troponin elevated:Likely demand ischemia S/P Cardiac catheterization: 12/22/16: Severe 2 vessel CAD ( 70-80% focal mid LAD stenosis, 70% ostial circumflex stenosis) ECHO: EF: 60-65%. Appreciate Cardiology Dr. Mcdowell help Plan to start statins after GI issues are addressed Continue Metoprolol 75mg BID CHOLELITHIASIS, CHOLEDOCHOLITHIASIS/TRANSAMINITIS ACUTE CHOLECYSTITIS 11MM stone in CBD on MRI MRCP on 12/23/16: findings suggestive of acute cholecystitis, 11mm filling defect in CBD Monitor LFTs: trending up Appreciate GI/Surgery input May need ERCP and cholecystectomy eventually Will start on Zosyn to treat cholecystitis empirically HEADACHE: Transient Blurry vision No focal deficits CT head: unremarkable HTN On metoprolol, HCTZ RIGHT KIDNEY LESION: 1.8 cm systic lesion noted on upper pole of R kidney on MRI Needs follow up ultrasound as outpatient in 3-6 months Renal function wnl HYPOTHYROIDISM low TSH Normal T3,T4 Continue Synthroid Need to repeat thyroid function as outpatient DVT PX SQ Heparin SCDs CODE STATUS Full code DISPOSITION: Continue monitoring in Tele Vital Signs: Date Time Temp Pulse Resp B/P Pulse Ox O2 Delivery O2 Flow Rate FiO2 12/24/16 07:09 36.8 72 17 143/60 93 Room Air 12/24/16 05:17 161/64 12/24/16 04:17 36.6 63 24 187/67 97 Room Air 12/24/16 04:00 Room Air 12/23/16 23:59 Room Air 12/23/16 23:31 36.9 69 18 158/73 95 Room Air 12/23/16 20:00 Room Air 12/23/16 19:45 36.6 83 16 162/75 97 Room Air 12/23/16 16:36 36.6 78 18 97 12/23/16 16:30 146/81 12/23/16 16:00 Room Air 12/23/16 15:51 78 164/69 12/23/16 15:07 36.6 63 18 190/65 97 Room Air 12/23/16 12:04 Room Air 12/23/16 11:42 36.9 62 14 161/95 95 Room Air Lab Results: Results Past 24 Hours Test 12/24/16 06:00 Range/Units White Blood Count 9.46 4.8-10.8 K/uL Red Blood Count 3.42 4.2-5.4 M/uL Hemoglobin 10.8 12.0-16.0 g/dL Hematocrit 32.3 37-47 % Mean Corpuscular Volume 94.4 80-100 fL Mean Corpuscular Hemoglobin 31.6 25-34 pg Mean Corpuscular Hemoglobin Concent 33.4 32-36 g/dl RDW Standard Deviation 53.3 36.4-46.3 fL RDW Coefficient of Variation 15.5 11.5-14.5 % Platelet Count 173 130-400 K/uL Mean Platelet Volume 9.6 7.4-10.4 fL Activated Partial Thromboplast Time 25.1 21.0-31.0 SECONDS Partial Thromboplastin Ratio 1.0 Sodium Level 142 136-145 mmol/L Potassium Level 4.6 3.5-5.1 mmol/L Chloride Level 109 98-107 mmol/L Carbon Dioxide Level 22 21-32 mmol/L Anion Gap 11.0 3-11 mmol/L Blood Urea Nitrogen 16 7-18 mg/dl Creatinine 1.00 0.60-1.20 mg/dl Est Creatinine Clear Calc Drug Dose 40.3 ml/min Estimated GFR () 59.5 Estimated GFR (Non- 51.3 BUN/Creatinine Ratio 15.5 10-20 Random Glucose 78 70-99 mg/dl Calcium Level 8.9 8.5-10.1 mg/dl Magnesium Level 1.7 1.8-2.4 mg/dl Total Bilirubin 2.9 0.2-1 mg/dl Direct Bilirubin 1.8 0-0.2 mg/dl Aspartate Amino Transf (AST/SGOT) 68 15-37 U/L Alanine Aminotransferase (ALT/SGPT) 60 12-78 U/L Alkaline Phosphatase 259 45-117 U/L Total Protein 6.1 6.4-8.2 gm/dl Albumin 3.0 3.4-5.0 gm/dl Microbiology Results 12/24/16 Blood Culture, Tomasa Batch Pending 12/24/16 Blood Culture, Tomasa Batch Pending
[2016-12-24] MEDS ORDERED: MAGNESIUM SULFATE 1GM / D5W 1 GM in PREMIXED IN D5W 100 ML IV ONE (09:00)
[2016-12-24] MEDS: MAGNESIUM CHLORIDE 64MG DELAYED REL TAB PO SCH ×2 (09:08→21:50)
[2016-12-24] MEDS: SODIUM CHLORIDE 0.9% 1000ML 1,000 ML IV SCH (09:08)
[2016-12-24] MEDS: METOPROLOL TARTRATE 25 MG TAB PO SCH ×2 (09:09→21:00)
[2016-12-24] MEDS ORDERED: PIPERACILL/TAZOBAC IV 3.375 GM in DEXTROSE 5% 100ML IV STA (09:10)
[2016-12-24] MEDS ORDERED: PIPERACILL/TAZOBAC CONSULT ACTIVE PRN (09:15)
[2016-12-24] MEDS: HYDROCHLOROTHIAZIDE 25 MG TAB PO SCH (09:24)
[2016-12-24] MEDS: ALLOPURINOL 100 MG TAB PO SCH (09:24)
[2016-12-24] MEDS: PANTOprazole SOD 40 MG TAB PO SCH (09:24)
[2016-12-24] MEDS: ASPIRIN 81 MG ECTAB PO SCH (09:24)
[2016-12-24] MEDS: ARMOUR THYROID 30 MG TAB PO SCH (09:25)
--- NOTE | 2016-12-24 10:31 | Gastroenterology Progress Note ---
Progress Note Date of Service: December 24, 2016 Subjective Pt evaluation today including: conversation w/ patient, physical exam, conversation w/ human performance consultant Patient with nausea overnight, MRCP performed and evidence of CBD stone as well as increase in bilirubin. Patient ambulating in the room without assistance. Last had anything by mouth at 730 am with water and pills. Medications Current Inpatient Medications Medications (Trade) Dose Ordered Sig/Yola Route Start Time Stop Time Status Last Admin Dose Admin Acetaminophen (Tylenol Tab) 650 mg Q4H PRN PO 12/20/16 13:15 01/19/17 13:14 12/24/16 04:02 650 MG Ondansetron HCl (Zofran Inj) 4 mg Q6H PRN IV 12/20/16 13:15 01/19/17 13:14 12/22/16 21:10 4 MG Allopurinol (Zyloprim Tab) 100 mg DAILY PO 12/21/16 09:00 01/20/17 08:59 12/24/16 09:24 100 MG Aspirin (Ecotrin Tab) 81 mg DAILY PO 12/21/16 09:00 01/20/17 08:59 12/24/16 09:24 81 MG Pantoprazole Sodium (Protonix Tab) 40 mg DAILY PO 12/21/16 09:00 01/20/17 08:59 12/24/16 09:24 40 MG Miscellaneous Information (Order Awaiting Action) 1 ea QS N/A 12/20/16 16:00 01/19/17 15:59 Hydrochlorothiazide (Hydrochlorothiazide Tab) 25 mg DAILY PO 12/21/16 09:00 01/20/17 08:59 12/24/16 09:24 25 MG Thyroid (Hooper Thyroid Tab) 90 mg DAILY PO 12/21/16 09:00 01/20/17 08:59 12/24/16 09:25 90 MG Nitroglycerin (Nitroglycerin 2% Oint) 1 inch Q6 EXT 12/22/16 12:00 01/21/17 11:59 12/24/16 06:16 1 INCH Hydralazine HCl 10 mg 10 mg Q4H PRN IV. 12/22/16 16:45 01/21/17 16:44 12/23/16 15:07 10 MG Promethazine HCl/ Sodium Chloride (Phenergan Inj/ Nss 50ml) 51 ml @ 204 mls/hr Q6H PRN IV 12/22/16 22:30 01/21/17 22:29 12/22/16 22:36 204 MLS/HR Metoprolol Tartrate (Lopressor Tab) 75 mg BID PO 12/23/16 22:30 01/22/17 22:29 12/24/16 09:09 75 MG Polyethylene (Miralax Powder Packet) 17 gm DAILY PRN PO 12/24/16 03:15 01/23/17 03:14 12/24/16 04:02 17 GM Simethicone 80 mg 80 mg Q6H PRN PO 12/24/16 02:45 01/23/17 02:44 12/24/16 03:37 80 MG Magnesium Sulfate/ Prmx (Magnesium Sulfate/Premixed D5W) 100 ml @ 100 mls/hr NOW ONCE IV 12/24/16 09:00 12/24/16 09:59 12/24/16 09:08 100 MLS/HR Magnesium Chloride 64 mg 64 mg BID PO 12/24/16 09:00 01/23/17 08:59 12/24/16 09:08 64 MG Sodium Chloride 1,000 ml @ 75 mls/hr [id number] IV 12/24/16 08:30 01/23/17 08:29 12/24/16 09:08 75 MLS/HR Piperacillin Sod/ Tazobactam Sod/ Dextrose (Zosyn Iv/D5 100ml) 115 ml @ 28.75 mls/ hr Q8H IV 12/24/16 16:00 01/03/17 15:59 Piperacillin Sod/ Tazobactam Sod (Consult) 1 ea UD PRN N/A 12/24/16 09:15 01/23/17 09:14 Objective Vital Signs Date Time Temp Pulse Resp B/P Pulse Ox O2 Delivery O2 Flow Rate FiO2 12/24/16 07:09 36.8 72 17 143/60 93 Room Air 12/24/16 05:17 161/64 12/24/16 04:17 36.6 63 24 187/67 97 Room Air 12/24/16 04:00 Room Air 12/23/16 23:59 Room Air 12/23/16 23:31 36.9 69 18 158/73 95 Room Air 5/13/17 20:00 Room Air 12/23/16 19:45 36.6 83 16 162/75 97 Room Air 12/23/16 16:36 36.6 78 18 97 12/23/16 16:30 146/81 12/23/16 16:00 Room Air 12/23/16 15:51 78 164/69 12/23/16 15:07 36.6 63 18 190/65 97 Room Air 12/23/16 12:04 Room Air 12/23/16 11:42 36.9 62 14 161/95 95 Room Air Physical Exam General Appearance: WD/WN, no apparent distress Respiratory/Chest: chest non-tender, lungs clear Cardiovascular: regular rate, rhythm, no edema Abdomen: normal bowel sounds, non tender, + pertinent finding (mild ruq tenderness) Extremities: normal range of motion Neurologic/Psych: supportive employment case manager II-XII nml as tested Skin: normal color Laboratory Results Last 24 Hours Test 12/24/16 06:00 White Blood Count 9.46 K/uL Red Blood Count 3.42 M/uL Hemoglobin 10.8 g/dL Hematocrit 32.3 % Mean Corpuscular Volume 94.4 fL Mean Corpuscular Hemoglobin 31.6 pg Mean Corpuscular Hemoglobin Concent 33.4 g/dl RDW Standard Deviation 53.3 fL RDW Coefficient of Variation 15.5 % Platelet Count 173 K/uL Mean Platelet Volume 9.6 fL Activated Partial Thromboplast Time 25.1 SECONDS Partial Thromboplastin Ratio 1.0 Sodium Level 142 mmol/L Potassium Level 4.6 mmol/L Chloride Level 109 mmol/L Carbon Dioxide Level 22 mmol/L Anion Gap 11.0 mmol/L Blood Urea Nitrogen 16 mg/dl Creatinine 1.00 mg/dl Est Creatinine Clear Calc Drug Dose 40.3 ml/min Estimated GFR () 59.5 Estimated GFR (Non- 51.3 BUN/Creatinine Ratio 15.5 Random Glucose 78 mg/dl Calcium Level 8.9 mg/dl Magnesium Level 1.7 mg/dl Total Bilirubin 2.9 mg/dl Direct Bilirubin 1.8 mg/dl Aspartate Amino Transf (AST/SGOT) 68 U/L Alanine Aminotransferase (ALT/SGPT) 60 U/L Alkaline Phosphatase 259 U/L Total Protein 6.1 gm/dl Albumin 3.0 gm/dl Assessment and Plan 86 yo presenting with n/v and abdominal pain initially to [place] and tx to [facility] complicated by SVT s/p ablation, troponin leak s/p cardiac cath on this admission without intervention. Findings of CBD stone as well as acute cholecystitis. Repeat MRCP with stone in duct, likely acute cholecystitis. LFT"s have bumped today and having intolerance to food and drink Plan for ERCP today with Dr. Morse as well as cholecystectomy to follow by Dr. Kahn
[2016-12-24] MEDS ORDERED: BUPIVACAINE/EPINEPHRINE 0.5% MPF 1:200,000 30 ML VIAL ONE (10:41)
[2016-12-24] MEDS ORDERED: LIDOCAINE HCL 2% 2 ML VIAL (20MG/ML) ONE (10:42)
[2016-12-24] MEDS ORDERED: ROCURONIUM BROMID 50MG/5ML SYR ONE (10:42)
[2016-12-24] MEDS ORDERED: GLYCOPYRROLATE INJ 0.2 MG/ML VIAL ONE (10:42)
[2016-12-24] MEDS ORDERED: NEOSTIGMINE METHYLSULFATE 5 MG/5 ML SYR ONE (10:42)
[2016-12-24] MEDS ORDERED: ONDANSETRON INJ 2 MG/ML 2 ML VIAL ONE (10:42)
[2016-12-24] MEDS ORDERED: FENTANYL CITRATE INJ 50 MCG/1 ML 2 ML VIAL ONE ×3 (10:43→13:59)
[2016-12-24] MEDS ORDERED: MIDAZOLAM HCL 1 MG/ML 2ML VIAL ONE (10:43)
[2016-12-24] MEDS ORDERED: INDOMETHACIN 50 MG SUPP PR ONE (11:34)
--- NOTE | 2016-12-24 11:37 | History & Physical Bridge Note ---
H&P Re-Evaluation Bridge Note: I have examined the patient, reviewed the History & Physical and in the interval since the performance of the History & Physical I have noted the following changes of clinical significance: No changes noted
--- NOTE | 2016-12-24 11:43 | Surgery Progress Note ---
Surgery Progress Note Date of Service December 24, 2016. Subjective pt continues to have RUQ pain and nausea. no new symptoms. Objective Vital Signs: Date Time Temp Pulse Resp B/P Pulse Ox O2 Delivery O2 Flow Rate FiO2 12/24/16 08:00 93 Room Air 12/24/16 07:09 36.8 72 17 143/60 93 Room Air 12/24/16 05:17 161/64 12/24/16 04:17 36.6 63 24 187/67 97 Room Air 12/24/16 04:00 Room Air 12/23/16 23:59 Room Air 12/23/16 23:31 36.9 69 18 158/73 95 Room Air 12/23/16 20:00 Room Air 12/23/16 19:45 36.6 83 16 162/75 97 Room Air 12/23/16 16:36 36.6 78 18 97 12/23/16 16:30 146/81 12/23/16 16:00 Room Air 12/23/16 15:51 78 164/69 12/23/16 15:07 36.6 63 18 190/65 97 Room Air 12/23/16 12:04 Room Air 12/23/16 11:42 36.9 62 14 161/95 95 Room Air General Appearance: + mild distress Abdomen: soft, + pertinent finding (+RUQ ttp. no g/r/r) Laboratory Results: Results Past 24 Hours Test 12/24/16 06:00 Range/Units White Blood Count 9.46 4.8-10.8 K/uL Red Blood Count 3.42 4.2-5.4 M/uL Hemoglobin 10.8 12.0-16.0 g/dL Hematocrit 32.3 37-47 % Mean Corpuscular Volume 94.4 80-100 fL Mean Corpuscular Hemoglobin 31.6 25-34 pg Mean Corpuscular Hemoglobin Concent 33.4 32-36 g/dl RDW Standard Deviation 53.3 36.4-46.3 fL RDW Coefficient of Variation 15.5 11.5-14.5 % Platelet Count 173 130-400 K/uL Mean Platelet Volume 9.6 7.4-10.4 fL Activated Partial Thromboplast Time 25.1 21.0-31.0 SECONDS Partial Thromboplastin Ratio 1.0 Sodium Level 142 136-145 mmol/L Potassium Level 4.6 3.5-5.1 mmol/L Chloride Level 109 98-107 mmol/L Carbon Dioxide Level 22 21-32 mmol/L Anion Gap 11.0 3-11 mmol/L Blood Urea Nitrogen 16 7-18 mg/dl Creatinine 1.00 0.60-1.20 mg/dl Est Creatinine Clear Calc Drug Dose 40.3 ml/min Estimated GFR () 59.5 Estimated GFR (Non- 51.3 BUN/Creatinine Ratio 15.5 10-20 Random Glucose 78 70-99 mg/dl Calcium Level 8.9 8.5-10.1 mg/dl Magnesium Level 1.7 1.8-2.4 mg/dl Total Bilirubin 2.9 0.2-1 mg/dl Direct Bilirubin 1.8 0-0.2 mg/dl Aspartate Amino Transf (AST/SGOT) 68 15-37 U/L Alanine Aminotransferase (ALT/SGPT) 60 12-78 U/L Alkaline Phosphatase 259 45-117 U/L Total Protein 6.1 6.4-8.2 gm/dl Albumin 3.0 3.4-5.0 gm/dl Microbiology Results 12/24/16 Blood Culture, Received Pending 12/24/16 Blood Culture, Received Pending Assessment & Plan 11/24/16 LFT"s worsened again d/w GI. they are planning ercp today. would be best to do one anesthetic. discussed her considerable risks ( bleeding/infection/mi/dvt/pe/injury to bowel or bile ducts etc...) discussed options. answered questions. she wishes to proceed wit lap elia today following ercp 11/23/16 LFT's still elevated apparently ok from cardiac standpoint for ercp,LFT's still elevated.... will await GI input for ERCP... will d/w Dr. Gutierrez regarding lap elia after ERCP LFT's still elevated apparently ok from cardiac standpoint for ercp,LFT's still elevated.... will await GI input for ERCP... will d/w Dr. Gutierrez regarding lap elia after ERCP
[2016-12-24] MEDS ORDERED: CEFAZOLIN SOD 1 GM VIAL ONE (12:06)
--- NOTE | 2016-12-24 12:45 | GI REPORT ---
Procedure Date: 12/24/2016 11:11 AM Procedure: ERCP Indications: Abnormal MRCP, For therapy of bile duct stone(s), Preop exam: Laparoscopic cholecystectomy Medicines: General Anesthesia, Indomethicin 100 mg rectal Complications: No immediate complications. Estimated blood loss: None Estimated Blood Loss: Estimated blood loss: none. Procedure: Pre-Anesthesia Assessment: - Prior to the procedure, a History and Physical was performed, and patient medications, allergies and sensitivities were reviewed. The patient's tolerance of previous anesthesia was reviewed. - ASA Grade Assessment: IV - A patient with severe systemic disease that is a constant threat to life. After obtaining informed consent, the scope was passed under direct vision. Throughout the procedure, the patient's blood pressure, pulse, and oxygen saturations were monitored continuously. The Scope was introduced through the mouth, and advanced to the duodenum and used to inject contrast into the bile duct. The Scope was introduced through the mouth, and advanced to the duodenum and used to inject contrast into the bile duct. The ERCP was accomplished with ease. The patient tolerated the procedure well. Findings: The packaging mechanic film was normal. The esophagus was successfully intubated under direct vision. The scope was advanced to a normal major papilla in the descending duodenum without detailed examination of the pharynx, larynx and associated structures, and upper GI tract. The upper GI tract was grossly normal. A Rick Rijuven Acrobat 0.035 inch guidewire was passed into the biliary tree through a Rick Rijuven Omni FS 35 sphincterotome. The sphincterotome was passed over the guidewire and the bile duct was then deeply cannulated. Contrast was injected. I personally interpreted the bile duct images. Image quality was excellent. Contrast extended to the main bile duct. The common bile duct was diffusely dilated, acquired. The largest diameter was 12 mm. The lower third of the main bile duct contained one stone, which was 10 mm in diameter. An 8 mm biliary sphincterotomy was made with a monofilament traction (standard) sphincterotome using ERBE electrocautery. There was no post-sphincterotomy bleeding. Dilation of the spincterotomy and distal common bile duct with an 8 mm balloon dilator was successful. The biliary tree was swept with a 15 mm balloon starting at the bifurcation. One large stone was removed. No stones remained. The total fluoroscopy exposure time was 2 minutes and 5 seconds. Impression: - The common bile duct was dilated, acquired. - A sphincterotomy was performed. - Sphinterotomy and distal common bile duct was successfully dilated to 8 mm. - The biliary tree was swept. - Choledocholithiasis was found. Complete removal was accomplished by biliary sphincterotomy and balloon extraction. Recommendation: - Laparoscopic cholecystectomy to follow immediately as planned. Walt Morse M.D. Walt Morse MD 12/24/2016 12:45:05 PM This report has been signed electronically. Note Initiated On: 12/24/2016 11:11 AM I attest to the content of the Intraoperative Record and orders documented therein, exceptions below
--- NOTE | 2016-12-24 12:50 | [facility] Operative Report ---
Operative Report Operative Date December 24, 2016. Pre-Operative Diagnosis Choledocholithiasis Acute Cholecystits Post-Operative Diagnosis Choledocholithiasis Procedure(s) Performed ERCP papillotomy and stone extraction Surgeon Dr. Mccain Camera Repair Technician Surgeon(s) NONE Estimated Blood Loss 0 Findings Choledocholithiasis in a dilated bile duct Fluids see anesthesis record Specimens None Drains None Anesthesia General Complication(s) None Disposition Laparoscopic cholecystectomy to follow immediately. Indications Choledocholithiasis and biliary colic Description of Procedure see Provation report I attest to the content of the Intraoperative Record and any orders documented therein. Any exceptions are noted below.
[2016-12-24] MEDS ORDERED: HydrALAZINE HCL 20 MG/ML VIAL ONE (12:52)
--- NOTE | 2016-12-24 13:08 | DIAGNOSTIC IMAGING REPORT ---
ERCP BILIARY DUCTAL CLINICAL HISTORY: ERCP. COMPARISON STUDY: MRCP December 23, 2016. FLUOROSCOPY TIME: 2 minutes and 3 seconds. FINDINGS: 2 fluoroscopic images of the right upper quadrant demonstrate cannulation of the common bile duct. There is biliary ductal dilatation. Filling defect within the common bile duct likely reflects the calculus shown on MRCP. IMPRESSION: Fluoroscopic images from ERCP as described above. Electronically signed by: Forrest Brandon M.D. 12/24/2016 1:06 PM Dictated Date/Time: 12/24/2016 1:05 PM
[2016-12-24] MEDS ORDERED: HYDROCODONE/ACETAMOPHEN 5/325MG TAB PO PRN (13:45)
[2016-12-24] MEDS ORDERED: MoRPHine SULFATE 2 MG/ML CARP IV PRN (13:45)
--- NOTE | 2016-12-24 13:52 | [facility] Operative Report ---
Operative Report Operative Date December 24, 2016. Pre-Operative Diagnosis Choledocholithiasis Acute Cholecystits Post-Operative Diagnosis Choledocholithiasis Procedure(s) Performed lap elia Surgeon Dr. Kahn Sales Closer Surgeon(s) NONE Estimated Blood Loss 10 Findings acutely inflammed gallbladder Fluids see anesthesis record Specimens gallbladder Drains None Anesthesia General Complication(s) None Disposition Recovery Room / PACU (Laparoscopic cholecystectomy to follow immediately.) I attest to the content of the Intraoperative Record and any orders documented therein. Any exceptions are noted below.
[2016-12-24] MEDS ORDERED: HYDROmorphone INJ 1 MG/ML SYR IV PRN (14:00)
[2016-12-24] MEDS ORDERED: EpHEDrine SULFATE INJ 50 MG/ML AMP IV PRN (14:00)
[2016-12-24] MEDS ORDERED: FENTANYL CITRATE INJ 50 MCG/1 ML 2 ML VIAL IV PRN (14:00)
[2016-12-24] MEDS ORDERED: ATROPINE SULFATE 0.1 MG/ML 5ML SYR IV PRN (14:00)
[2016-12-24] MEDS ORDERED: ONDANSETRON INJ 2 MG/ML 2 ML VIAL IV PRN (14:00)
[2016-12-24] MEDS ORDERED: MEPERIDINE HCL 25 MG/ML CARP IV PRN (14:00)
[2016-12-24] MEDS ORDERED: LABETALOL HCL IV 5 MG/ML 20ML IV PRN (14:00)
--- NOTE | 2016-12-24 14:27 | Anesthesiology Progress Note ---
Anesthesia Post Op Note Date & Time December 24, 2016 at 14:26 Vital Signs Pain Intensity: 2 Vital Signs Past 12 Hours Date Time Temp Pulse Resp B/P Pulse Ox O2 Delivery O2 Flow Rate FiO2 12/24/16 14:15 36.5 55 16 152/62 99 Nasal Cannula 4 12/24/16 14:05 62 16 150/60 99 Nasal Cannula 4 12/24/16 13:55 68 16 141/57 99 Mask 10 12/24/16 13:45 70 16 168/73 99 Mask 10 12/24/16 13:39 37.2 73 16 178/76 99 Mask 10 12/24/16 08:00 93 Room Air 12/24/16 07:09 36.8 72 17 143/60 93 Room Air 12/24/16 05:17 161/64 12/24/16 04:17 36.6 63 24 187/67 97 Room Air 12/24/16 04:00 Room Air Notes Mental Status: alert / awake / arousable, participated in evaluation Pt Amnestic to Procedure: Yes Nausea / Vomiting: adequately controlled Pain: adequately controlled Airway Patency, RR, SpO2: stable & adequate BP & HR: stable & adequate Hydration State: stable & adequate Anesthetic Complications: no major complications apparent
[2016-12-24] MEDS: ONDANSETRON INJ 2 MG/ML 2 ML VIAL IV PRN (14:46)
[2016-12-24] MEDS: ACETAMINOPHEN IV 1,000 MG in EMPTY BAG 0 ML IV SCH ×2 (15:20→21:59)
[2016-12-24] MEDS: PIPERACILL/TAZOBAC IV 3.375 GM in DEXTROSE 5% 100ML 100 ML IV SCH (15:55)
--- NOTE | 2016-12-24 17:24 | OPERATIVE REPORT ---
DATE OF OPERATION: 12/24/2016 PREOPERATIVE DIAGNOSES: 1. Acute cholecystitis. 2. Choledocholithiasis. POSTOPERATIVE DIAGNOSES: Same. PROCEDURE: Laparoscopic cholecystectomy. SURGEON: Deny Kahn DO ESTIMATED BLOOD LOSS: Approximately 10 mL. COMPLICATIONS: No immediate. ANESTHESIA: General. The patient tolerated the procedure well. DESCRIPTION OF PROCEDURE: The patient was brought to the operating room for an ERCP by Dr. Morse. He did find a common bile duct stone which he was able to extract. Please see his note regarding these details. The patient was already in the room and intubated. She was placed in the supine position and sterilely prepped and draped in usual fashion. A periumbilical incision was made with an 11 blade scalpel and carried down through the soft tissue using electrocautery. Anterior rectus fascia was opened using electrocautery and two #0 Vicryl stay sutures were placed. Peritoneum was entered using blunt finger penetration and a finger sweep was performed to take down adhesions. A 12 mm Eusebia trocar was placed and the abdomen was insufflated to 18 mmHg. Laparoscope was inserted and the abdomen examined 360 degrees. The gallbladder was grossly distended and inflamed. I was able to place a subxiphoid 5 mm port and 2 right upper quadrant 5 mm ports under direct vision. The patient was placed in reverse Trendelenburg position and slightly airplaned to the left. The gallbladder was grasped and elevated superiorly and laterally. A [place] dissector was used to take down adhesions around the neck of the gallbladder. I was able to identify the cystic duct, skeletonize it, clip it twice proximally and once distally, and transect it. In similar fashion, I was able to identify the cystic artery, skeletonize it, clip and divide it. There was also an accessory posterior branch of the cystic artery, which I clipped and divided as well. The gallbladder was then removed from the gallbladder fossa using electrocautery. It was removed intact. Several small bleeding points in the gallbladder fossa were controlled using electrocautery. Irrigation was performed. At the end of the procedure, there was adequate hemostasis and no evidence of any bile leaks. I did take a quick look around the abdomen. The only other abnormality I saw was about a 3-4 cm hiatal hernia with minimal gastric incarceration. We then placed the gallbladder into an EndoCatch bag. We removed all the trocars and desufflated the abdomen. The gallbladder was removed from the camera port site. I did have to extend the fascial incision somewhat because of the sheer size of the gallbladder. I then closed this fascia using 0 Ethibond in interrupted [id number] fashion. All the wounds were irrigated and closed using 3-0 Vicryl for deep layers and 4-0 Monocryl for skin. Marcaine was injected around the incisions for postoperative analgesia and skin glue used as dressings. The patient was awakened, extubated, and transferred to recovery in stable condition. I attest to the content of the Intraoperative Record and any orders documented therein. Any exceptio ns are noted below.
[2016-12-25] VITALS (13 sets, daily range): BP systolic 132–177; BP diastolic 53–75; PULSE 62–71; TEMP 36.3–36.8; O2SAT 93–96
[2016-12-25] MEDS: NITROGLYCERIN 2% OINTMENT 30GM TUBE EXT SCH ×4 (00:54→17:25)
[2016-12-25] MEDS: PIPERACILL/TAZOBAC IV 3.375 GM in DEXTROSE 5% 100ML 100 ML IV SCH ×2 (00:54→07:33)
[2016-12-25] MEDS: ACETAMINOPHEN IV 1,000 MG in EMPTY BAG 0 ML IV SCH ×3 (06:06→21:55)
[2016-12-25 06:43] LABS: HEMATOCRIT 32.8 % (37-47); MEAN CELL VOLUME 95.3 fL (80-100); MEAN CORPUSCULAR HEMOGLOBIN 31.1 pg (25-34); MEAN CORPUSCULAR HGB CONC 32.6 g/dl (32-36); MEAN PLATELET VOLUME 9.8 fL (7.4-10.4); PLATELET COUNT 174 K/uL (130-400); RED BLOOD COUNT 3.44 M/uL (4.2-5.4); WHITE BLOOD COUNT 6.83 K/uL (4.8-10.8)
[2016-12-25 07:12] LABS: BUN/CREATININE RATIO 8.8 (10-20); CALCIUM 8.3 mg/dl (8.5-10.1); CREATININE 1.6 mg/dl (0.60-1.20); POTASSIUM 3.9 mmol/L (3.5-5.1)
[2016-12-25] MEDS: SODIUM CHLORIDE 0.9% 1000ML 1,000 ML IV SCH ×2 (07:33→12:02)
[2016-12-25] MEDS: RESTASIS-ORDER AWAITING ACTION SCH ×2 (07:36→16:00)
[2016-12-25] MEDS: ARMOUR THYROID 30 MG TAB PO SCH (08:55)
[2016-12-25] MEDS: ASPIRIN 81 MG ECTAB PO SCH (08:56)
[2016-12-25] MEDS: METOPROLOL TARTRATE 25 MG TAB PO SCH ×2 (08:56→21:54)
[2016-12-25] MEDS: MAGNESIUM CHLORIDE 64MG DELAYED REL TAB PO SCH ×2 (08:56→21:53)
[2016-12-25] MEDS: ALLOPURINOL 100 MG TAB PO SCH (08:56)
[2016-12-25] MEDS: PANTOprazole SOD 40 MG TAB PO SCH (08:56)
[2016-12-25] MEDS: HYDROCHLOROTHIAZIDE 25 MG TAB PO SCH (08:56)
--- NOTE | 2016-12-25 08:58 | Progress Note ---
Internal Med Progress Note Date of Service: December 25, 2016. Provider Documentation: SUBJECTIVE: Seen and examined at bedside. States feeling much better. Denies nausea, vomiting, abd pain, SOB, chest pain. Offers no complaints. OBJECTIVE: Vital Signs-as noted below Physical Exam: General Appearance:Moderately built and nourished, no apparent distress Head: normocephalic, Atraumatic Eyes: normal inspection, EOMI, PERRL Neck: supple, Trachea midline Respiratory/Chest: Normal breath sounds, CTA Cardiovascular: S1, S2, No murmur Abdomen/GI:Soft, non tender, Bowel sounds present Extremities/Musculoskelatal:normal inspection, Trace edema Neurologic/Psych:AAOX3, grossly no focal neurological deficits Skin: normal color, warm, +Surgical scar on abdomen Lab data as noted below. ASSESSMENT & PLAN: SVT Presented with H/O palpitations since 6 weeks and had nausea, vomiting, palpitations 1 day prior to admission Admitted at [place] for SVT and BB changed from Nadolol to metoprolol Found to be in SVT in ED: Treated with adenosine x 2 and metoprolol x 2. and was on esmolol drip S/P Ablation on 12/21/16 Troponin elevated:Likely demand ischemia S/P Cardiac catheterization: 12/22/16: Severe 2 vessel CAD ( 70-80% focal mid LAD stenosis, 70% ostial circumflex stenosis) ECHO: EF: 60-65%. Appreciate Cardiology Dr. Mcdowell help Plan to start statins after GI issues are addressed Continue Metoprolol 75mg BID CHOLELITHIASIS, CHOLEDOCHOLITHIASIS/TRANSAMINITIS ACUTE CHOLECYSTITIS S/P CHOLESYSTECTOMY: POD #1 11MM stone in CBD on MRI s/p Sphincterotomy and CBD dilatation on 12/24/16 Monitor LFTs Appreciate GI/Surgery input On Zosyn >>> switch to Ceftin and Flagyl today UBALDO: Cr:1.6 Monitor renal function Continue IV fluids HEADACHE: Transient Blurry vision No focal deficits CT head: unremarkable Resolved HTN Continue metoprolol Hold HCTZ RIGHT KIDNEY LESION: 1.8 cm systic lesion noted on upper pole of R kidney on MRI Needs follow up ultrasound as outpatient in 3-6 months Renal function wnl HYPOTHYROIDISM low TSH Normal T3,T4 Continue Synthroid Need to repeat thyroid function as outpatient DVT PX SQ Heparin SCDs CODE STATUS Full code DISPOSITION: Continue monitoring in Tele Patient doesn't prefer to go to any Rehab/SNF facility Vital Signs: Date Time Temp Pulse Resp B/P Pulse Ox O2 Delivery O2 Flow Rate FiO2 12/25/16 12:03 68 155/72 12/25/16 11:05 Room Air 12/25/16 11:03 36.5 71 16 163/75 96 Room Air 12/25/16 10:54 36.4 67 18 95 2.0 12/25/16 10:25 176/68 12/25/16 08:00 95 Room Air 12/25/16 07:17 36.4 67 18 176/66 95 Room Air 12/25/16 04:00 Room Air 12/25/16 03:20 36.8 66 20 158/67 93 Room Air 12/25/16 00:16 36.7 62 16 155/63 94 Room Air 12/24/16 23:59 Room Air 12/24/16 20:00 Room Air 12/24/16 19:25 36.4 61 18 135/61 98 Nasal Cannula 2.0 12/24/16 18:11 37.1 53 18 160/68 100 Nasal Cannula 2.0 12/24/16 17:02 36.4 65 18 177/71 100 3.0 12/24/16 16:16 36.5 54 18 175/63 99 Nasal Cannula 4.0 12/24/16 16:00 100 Nasal Cannula 4.0 12/24/16 15:27 36.4 53 18 167/64 99 Nasal Cannula 4.0 12/24/16 15:23 51 175/69 100 3.0 Lab Results: Results Past 24 Hours Test 12/25/16 06:15 Range/Units White Blood Count 6.83 4.8-10.8 K/uL Red Blood Count 3.44 4.2-5.4 M/uL Hemoglobin 10.7 12.0-16.0 g/dL Hematocrit 32.8 37-47 % Mean Corpuscular Volume 95.3 80-100 fL Mean Corpuscular Hemoglobin 31.1 25-34 pg Mean Corpuscular Hemoglobin Concent 32.6 32-36 g/dl RDW Standard Deviation 54.6 36.4-46.3 fL RDW Coefficient of Variation 15.8 11.5-14.5 % Platelet Count 174 130-400 K/uL Mean Platelet Volume 9.8 7.4-10.4 fL Activated Partial Thromboplast Time 25.2 21.0-31.0 SECONDS Partial Thromboplastin Ratio 1.0 Sodium Level 139 136-145 mmol/L Potassium Level 3.9 3.5-5.1 mmol/L Chloride Level 106 98-107 mmol/L Carbon Dioxide Level 21 21-32 mmol/L Anion Gap 12.0 3-11 mmol/L Blood Urea Nitrogen 14 7-18 mg/dl Creatinine 1.60 0.60-1.20 mg/dl Est Creatinine Clear Calc Drug Dose 25.2 ml/min Estimated GFR () 33.7 Estimated GFR (Non- 29.1 BUN/Creatinine Ratio 8.8 10-20 Random Glucose 85 70-99 mg/dl Calcium Level 8.3 8.5-10.1 mg/dl Magnesium Level 2.0 1.8-2.4 mg/dl Total Bilirubin 5.5 0.2-1 mg/dl Direct Bilirubin 4.6 0-0.2 mg/dl Aspartate Amino Transf (AST/SGOT) 92 15-37 U/L Alanine Aminotransferase (ALT/SGPT) 57 12-78 U/L Alkaline Phosphatase 254 45-117 U/L Total Protein 5.9 6.4-8.2 gm/dl Albumin 2.7 3.4-5.0 gm/dl Lipase 649 73-393 U/L
[2016-12-25] MEDS ORDERED: CHOLECALCIFEROL 1000 INTER.UNIT TAB PO SCH (09:00)
--- NOTE | 2016-12-25 09:16 | Gastroenterology Progress Note ---
Progress Note Date of Service: December 25, 2016 Subjective Pt evaluation today including: conversation w/ patient, physical exam, chart review, lab review Pt was seen and evaluated this morning. ERCP/cholecystectomy on 12/24/16. She has no complaints this AM. She is feeling well. No abdominal pain, no N/V. TB and DB this morning significant elevated. Review of Systems Constitutional: No chills, No fever Respiratory: No cough, No shortness of breath Cardiac: No chest pain, No edema Abdomen: No constipation, No diarrhea, No nausea, No pain, No vomiting Medications Current Inpatient Medications Medications (Trade) Dose Ordered Sig/Yola Route Start Time Stop Time Status Last Admin Dose Admin Acetaminophen (Tylenol Tab) 650 mg Q4H PRN PO 12/20/16 13:15 01/19/17 13:14 12/24/16 04:02 650 MG Ondansetron HCl (Zofran Inj) 4 mg Q6H PRN IV 12/20/16 13:15 01/19/17 13:14 12/24/16 14:46 4 MG Allopurinol (Zyloprim Tab) 100 mg DAILY PO 12/21/16 09:00 01/20/17 08:59 12/25/16 08:56 100 MG Aspirin (Ecotrin Tab) 81 mg DAILY PO 12/21/16 09:00 01/20/17 08:59 12/25/16 08:56 81 MG Pantoprazole Sodium (Protonix Tab) 40 mg DAILY PO 12/21/16 09:00 01/20/17 08:59 12/25/16 08:56 40 MG Miscellaneous Information (Order Awaiting Action) 1 ea QS N/A 12/20/16 16:00 01/19/17 15:59 Hydrochlorothiazide (Hydrochlorothiazide Tab) 25 mg DAILY PO 12/21/16 09:00 01/20/17 08:59 12/25/16 08:56 25 MG Thyroid ([place] Thyroid Tab) 90 mg DAILY PO 12/21/16 09:00 01/20/17 08:59 12/25/16 08:55 90 MG Nitroglycerin (Nitroglycerin 2% Oint) 1 inch Q6 EXT 12/22/16 12:00 01/21/17 11:59 12/25/16 06:06 1 INCH Hydralazine HCl 10 mg 10 mg Q4H PRN IV. 12/22/16 16:45 01/21/17 16:44 12/23/16 15:07 10 MG Promethazine HCl/ Sodium Chloride (Phenergan Inj/ Nss 50ml) 51 ml @ 204 mls/hr Q6H PRN IV 12/22/16 22:30 01/21/17 22:29 12/22/16 22:36 204 MLS/HR Metoprolol Tartrate (Lopressor Tab) 75 mg BID PO 12/23/16 22:30 01/22/17 22:29 12/25/16 08:56 75 MG Polyethylene (Miralax Powder Packet) 17 gm DAILY PRN PO 12/24/16 03:15 01/23/17 03:14 12/24/16 04:02 17 GM Simethicone (Mylicon Chew Tab) 80 mg Q6H PRN PO 12/24/16 02:45 01/23/17 02:44 12/24/16 03:37 80 MG Magnesium Chloride 64 mg 64 mg BID PO 12/24/16 09:00 01/23/17 08:59 12/25/16 08:56 64 MG Sodium Chloride 1,000 ml @ 75 mls/hr [id number] IV 12/24/16 08:30 01/23/17 08:29 12/25/16 07:33 75 MLS/HR Piperacillin Sod/ Tazobactam Sod/ Dextrose (Zosyn Iv/D5 100ml) 115 ml @ 28.75 mls/ hr Q8H IV 12/24/16 16:00 01/03/17 15:59 12/25/16 07:33 28.75 MLS/HR Piperacillin Sod/ Tazobactam Sod (Consult) 1 ea UD PRN N/A 12/24/16 09:15 01/23/17 09:14 Cholecalciferol 5000 inter.unit 5,000 inter.unit Mo@0900 PO 12/25/16 09:00 01/24/17 08:59 12/25/16 08:56 5,000 INTER.UNIT Acetaminophen/ Empty Bag (Ofirmev Iv/ Empty Iv Bag 100ml) 100 ml @ 400 mls/hr Q8H IV 12/24/16 14:00 01/23/17 13:59 12/25/16 06:06 400 MLS/HR Morphine Sulfate (MoRPHine SULFATE INJ) 2 mg Q1HWA PRN IV 12/24/16 13:45 01/07/17 13:44 Acetaminophen/ Hydrocodone Bitart ([place] 5/325 Tab) 1 po q6 prn moder... Q6 PRN PO 12/24/16 13:45 01/07/17 13:44 Future Hold Objective Vital Signs Date Time Temp Pulse Resp B/P Pulse Ox O2 Delivery O2 Flow Rate FiO2 12/25/16 07:17 36.4 67 18 176/66 95 Room Air 12/25/16 04:00 Room Air 12/25/16 03:20 36.8 66 20 158/67 93 Room Air 12/25/16 00:16 36.7 62 16 155/63 94 Room Air 12/24/16 23:59 Room Air 12/24/16 20:00 Room Air 12/24/16 19:25 36.4 61 18 135/61 98 Nasal Cannula 2.0 12/24/16 18:11 37.1 53 18 160/68 100 Nasal Cannula 2.0 12/24/16 17:02 36.4 65 18 177/71 100 3.0 12/24/16 16:16 36.5 54 18 175/63 99 Nasal Cannula 4.0 12/24/16 16:00 100 Nasal Cannula 4.0 12/24/16 15:27 36.4 53 18 167/64 99 Nasal Cannula 4.0 12/24/16 15:23 51 175/69 100 3.0 12/24/16 14:42 36.4 53 16 186/66 100 Nasal Cannula 4.0 12/24/16 14:25 36.5 57 16 156/61 99 Nasal Cannula 4 12/24/16 14:15 36.5 55 16 152/62 99 Nasal Cannula 4 12/24/16 14:05 62 16 150/60 99 Nasal Cannula 4 12/24/16 13:55 68 16 141/57 99 Mask 10 12/24/16 13:45 70 16 168/73 99 Mask 10 12/24/16 13:39 37.2 73 16 178/76 99 Mask 10 Physical Exam General Appearance: no apparent distress Eyes: PERRL ENT: hearing grossly normal Neck: supple Respiratory/Chest: lungs clear Cardiovascular: regular rate, rhythm Abdomen: normal bowel sounds, non tender, soft, no organomegaly Neurologic/Psych: alert, normal mood/affect, oriented x 3 Skin: warm/dry, + jaundice Laboratory Results Last 24 Hours Test 12/25/16 06:15 White Blood Count 6.83 K/uL Red Blood Count 3.44 M/uL Hemoglobin 10.7 g/dL Hematocrit 32.8 % Mean Corpuscular Volume 95.3 fL Mean Corpuscular Hemoglobin 31.1 pg Mean Corpuscular Hemoglobin Concent 32.6 g/dl RDW Standard Deviation 54.6 fL RDW Coefficient of Variation 15.8 % Platelet Count 174 K/uL Mean Platelet Volume 9.8 fL Activated Partial Thromboplast Time 25.2 SECONDS Partial Thromboplastin Ratio 1.0 Sodium Level 139 mmol/L Potassium Level 3.9 mmol/L Chloride Level 106 mmol/L Carbon Dioxide Level 21 mmol/L Anion Gap 12.0 mmol/L Blood Urea Nitrogen 14 mg/dl Creatinine 1.60 mg/dl Est Creatinine Clear Calc Drug Dose 25.2 ml/min Estimated GFR () 33.7 Estimated GFR (Non- 29.1 BUN/Creatinine Ratio 8.8 Random Glucose 85 mg/dl Calcium Level 8.3 mg/dl Magnesium Level 2.0 mg/dl Total Bilirubin 5.5 mg/dl Direct Bilirubin 4.6 mg/dl Aspartate Amino Transf (AST/SGOT) 92 U/L Alanine Aminotransferase (ALT/SGPT) 57 U/L Alkaline Phosphatase 254 U/L Total Protein 5.9 gm/dl Albumin 2.7 gm/dl Lipase 649 U/L Assessment and Plan Patient is a 86 year old female with asymptomatic elevation of LFTs amd MRCP with obstructive stone - she was admitted with SVT - had ablation on 12/21/16. Troponin elevated 0.273. TB 1.6, DB 0.6, AST 136, ALT 108, ALK 267 on 12/21/16. Acute events overnight w/ BP 209/80, MCCLURE, nausea blurred vision, SOB & gagging. EKG w/ acute ischemia overnight, heparin gtt started this AM w/ Troponin elevation of 2.010. ERCP with cholecystectomy on 12/24/16 - now with worsening obstructive labs. Post operative inflammation vs retained stone Will hold on repeat MRCP Continue to monitor LFTs Attg addendum: I interviewed and examined pt. Pt without any complaints, but noted to have asymptomatic increase in bilirubin. I am not sure why her bilirubin is increased, but will follow for now - plan for either repeat procedure. Zosyn is a rare cause of jaundice; it may be possible that this is a cause.
[2016-12-25] MEDS: HydrALAZINE HCL 20 MG/ML VIAL IV. PRN (10:30)
--- NOTE | 2016-12-25 10:52 | Surgery Progress Note ---
Surgery Progress Note Date of Service December 25, 2016. Subjective Post OP Day: 1 + feeling well states this is the best she has felt in quite some time. no n/v. all of her prior pain is gone. Objective Vital Signs: Date Time Temp Pulse Resp B/P Pulse Ox O2 Delivery O2 Flow Rate FiO2 12/25/16 10:25 176/68 12/25/16 08:00 95 Room Air 12/25/16 07:17 36.4 67 18 176/66 95 Room Air 12/25/16 04:00 Room Air 12/25/16 03:20 36.8 66 20 158/67 93 Room Air 12/25/16 00:16 36.7 62 16 155/63 94 Room Air 12/24/16 23:59 Room Air 12/24/16 20:00 Room Air 12/24/16 19:25 36.4 61 18 135/61 98 Nasal Cannula 2.0 12/24/16 18:11 37.1 53 18 160/68 100 Nasal Cannula 2.0 12/24/16 17:02 36.4 65 18 177/71 100 3.0 12/24/16 16:16 36.5 54 18 175/63 99 Nasal Cannula 4.0 12/24/16 16:00 100 Nasal Cannula 4.0 12/24/16 15:27 36.4 53 18 167/64 99 Nasal Cannula 4.0 12/24/16 15:23 51 175/69 100 3.0 12/24/16 14:42 36.4 53 16 186/66 100 Nasal Cannula 4.0 12/24/16 14:25 36.5 57 16 156/61 99 Nasal Cannula 4 12/24/16 14:15 36.5 55 16 152/62 99 Nasal Cannula 4 12/24/16 14:05 62 16 150/60 99 Nasal Cannula 4 12/24/16 13:55 68 16 141/57 99 Mask 10 12/24/16 13:45 70 16 168/73 99 Mask 10 12/24/16 13:39 37.2 73 16 178/76 99 Mask 10 General Appearance: no apparent distress Abdomen: non distended, soft Incision(s): clean, dry, intact Laboratory Results: Results Past 24 Hours Test 12/25/16 06:15 Range/Units White Blood Count 6.83 4.8-10.8 K/uL Red Blood Count 3.44 4.2-5.4 M/uL Hemoglobin 10.7 12.0-16.0 g/dL Hematocrit 32.8 37-47 % Mean Corpuscular Volume 95.3 80-100 fL Mean Corpuscular Hemoglobin 31.1 25-34 pg Mean Corpuscular Hemoglobin Concent 32.6 32-36 g/dl RDW Standard Deviation 54.6 36.4-46.3 fL RDW Coefficient of Variation 15.8 11.5-14.5 % Platelet Count 174 130-400 K/uL Mean Platelet Volume 9.8 7.4-10.4 fL Activated Partial Thromboplast Time 25.2 21.0-31.0 SECONDS Partial Thromboplastin Ratio 1.0 Sodium Level 139 136-145 mmol/L Potassium Level 3.9 3.5-5.1 mmol/L Chloride Level 106 98-107 mmol/L Carbon Dioxide Level 21 21-32 mmol/L Anion Gap 12.0 3-11 mmol/L Blood Urea Nitrogen 14 7-18 mg/dl Creatinine 1.60 0.60-1.20 mg/dl Est Creatinine Clear Calc Drug Dose 25.2 ml/min Estimated GFR () 33.7 Estimated GFR (Non- 29.1 BUN/Creatinine Ratio 8.8 10-20 Random Glucose 85 70-99 mg/dl Calcium Level 8.3 8.5-10.1 mg/dl Magnesium Level 2.0 1.8-2.4 mg/dl Total Bilirubin 5.5 0.2-1 mg/dl Direct Bilirubin 4.6 0-0.2 mg/dl Aspartate Amino Transf (AST/SGOT) 92 15-37 U/L Alanine Aminotransferase (ALT/SGPT) 57 12-78 U/L Alkaline Phosphatase 254 45-117 U/L Total Protein 5.9 6.4-8.2 gm/dl Albumin 2.7 3.4-5.0 gm/dl Lipase 649 73-393 U/L Assessment & Plan 12/25/16 pt clinically doing much better LFT's up today scheduled for repeat MRCP today will follow results closely 12/24/16 LFT"s worsened again d/w GI. they are planning ercp today. would be best to do one anesthetic. discussed her considerable risks ( bleeding/infection/mi/dvt/pe/injury to bowel or bile ducts etc...) discussed options. answered questions. she wishes to proceed wit lap elia today following ercp 12/23/16 LFT's still elevated apparently ok from cardiac standpoint for ercp,LFT's still elevated.... will await GI input for ERCP... will d/w Dr. Gutierrez regarding lap elia after ERCP 11/24/16 LFT"s worsened again d/w GI. they are planning ercp today. would be best to do one anesthetic. discussed her considerable risks ( bleeding/infection/mi/dvt/pe/injury to bowel or bile ducts etc...) discussed options. answered questions. she wishes to proceed wit lap elia today following ercp 11/23/16 LFT's still elevated apparently ok from cardiac standpoint for ercp,LFT's still elevated.... will await GI input for ERCP... will d/w Dr. Gutierrez regarding lap elia after ERCP
--- NOTE | 2016-12-25 14:56 | Progress Note ---
Post ICU Progress Note Date & Time December 25, 2016 at 14:46 Vital Signs Vital Signs Past 12 Hours Date Time Temp Pulse Resp B/P Pulse Ox O2 Delivery O2 Flow Rate FiO2 12/25/16 12:03 68 155/72 12/25/16 11:05 Room Air 12/25/16 11:03 36.5 71 16 163/75 96 Room Air 12/25/16 10:54 36.4 67 18 95 2.0 12/25/16 10:25 176/68 12/25/16 08:00 95 Room Air 12/25/16 07:17 36.4 67 18 176/66 95 Room Air 12/25/16 04:00 Room Air 12/25/16 03:20 36.8 66 20 158/67 93 Room Air Notes Mental Status: alert / awake, participated in evaluation Nausea / Vomiting: adequately controlled Pain: adequately controlled Airway Patency, RR, SpO2: stable & adequate BP & HR: stable & adequate Patient admitted to the ICU with tachy arrhythmia. She was seen by cardiology and had ablation by Dr. Mcdowell for SVT. She then underwent cardiac catheterization by Dr. Liao due to ST changes. Findings included: LM - Luminal irregularities LAD - Severely calcified proximally, focal 70-80% mid segment stenosis, distal luminal irregularities as vessel wraps around the apex. Severe ostial stenosis of small 2nd diagonal. Circumflex - Severely calcified, ostial 70% stenosis involving take-off of high 1st OM. 1st OM with 80% ostial stenosis RCA - Dominant, calcified 20% ostial stenosis; mid segment with 30-40% calcified stenosis; distal luminal irregularities. Dr. Liao did no intervention due to high risk. Should symptoms recur, he suggests evaluation for high risk PCI vs CABG. The patient then underwent ERCP with stone extraction and was found to have choledocholithiasis. She then underwent lap cholecystectomy with Dr. Kahn. The patient was seen in follow up in room 354. She had no chest pain or other acute complaints. She denied fever, n/v/d. She has no SOB and has been ambulating without difficulty. Reviewed progress notes, labs, and inpatient medication list Continue current management Critical care medicine will sign off at this time. Please refer to Dr. Blackmon' s addendum for further recommendations. Please feel free to reconsult as needed. Thank you for including us in the care of this patient I have personally evaluated and examined this patient. I agree with assessment and plan of Rafael Varghese PA-C. Consults & Procedures Consultants: GI General Surgery Cardiology Procedures: Cardiac ablation for SVT with Dr. Mcdowell Cardiac catheterization with Dr. Liao Lap elia with Dr. Kahn ERCP with stone extraction with Dr. Morse
[2016-12-25] MEDS: METRONIDAZOLE 500 MG TAB PO SCH (17:25)
[2016-12-25] MEDS: CEFUROXIME AXETIL 500 MG TAB PO SCH (17:26)
[2016-12-25] MEDS: ONDANSETRON INJ 2 MG/ML 2 ML VIAL IV PRN (20:09)
--- NOTE | 2016-12-25 21:48 | DIAGNOSTIC IMAGING REPORT ---
KUB CLINICAL HISTORY: Abdominal distention. FINDINGS: 2 AP supine abdominal radiographs are correlated with abdominal ultrasound dated 12/20/2016. There is a nonobstructed abdominal bowel gas pattern. Moderate colonic fecal retention is observed. No evidence of intraperitoneal free air is seen. Cholecystectomy clips are identified in the right upper quadrant. No abnormal abdominal calcifications are seen. There are numerous pelvic phleboliths. The skeletal structures are osteopenic. Lumbosacral spondylosis is observed. Sclerotic change is noted at the pubic sepsis. A small left pleural effusion is suggested. IMPRESSION: Nonobstructed abdominal bowel gas pattern. Electronically signed by: Ray Edwards M.D. 12/25/2016 9:47 PM Dictated Date/Time: 12/25/2016 9:46 PM
[2016-12-26] VITALS (8 sets, daily range): BP systolic 136–182; BP diastolic 55–73; PULSE 70–86; TEMP 36.4–37; O2SAT 91–96
[2016-12-26] MEDS: NITROGLYCERIN 2% OINTMENT 30GM TUBE EXT SCH ×2 (00:43→06:16)
[2016-12-26] MEDS: SODIUM CHLORIDE 0.9% 1000ML 1,000 ML IV SCH ×2 (01:30→14:18)
[2016-12-26] MEDS: ACETAMINOPHEN IV 1,000 MG in EMPTY BAG 0 ML IV SCH (06:17)
[2016-12-26 06:29] LABS: PARTIAL THROMBOPLASTIN RATIO 1.1
[2016-12-26 06:52] LABS: CALCIUM 8.7 mg/dl (8.5-10.1); CREATININE 1.4 mg/dl (0.60-1.20); MAGNESIUM 1.9 mg/dl (1.8-2.4); POTASSIUM 4.1 mmol/L (3.5-5.1)
[2016-12-26] MEDS: RESTASIS-ORDER AWAITING ACTION SCH ×3 (08:00→23:27)
[2016-12-26] MEDS: CEFUROXIME AXETIL 500 MG TAB PO SCH ×2 (08:31→21:48)
[2016-12-26] MEDS: ALLOPURINOL 100 MG TAB PO SCH (08:31)
[2016-12-26] MEDS: PANTOprazole SOD 40 MG TAB PO SCH (08:31)
[2016-12-26] MEDS: METOPROLOL TARTRATE 25 MG TAB PO SCH ×2 (08:31→21:48)
[2016-12-26] MEDS: ASPIRIN 81 MG ECTAB PO SCH (08:32)
[2016-12-26] MEDS: METRONIDAZOLE 500 MG TAB PO SCH ×3 (08:32→21:48)
[2016-12-26] MEDS: ARMOUR THYROID 30 MG TAB PO SCH (08:32)
[2016-12-26] MEDS: MAGNESIUM CHLORIDE 64MG DELAYED REL TAB PO SCH ×2 (08:32→21:48)
[2016-12-26] MEDS: HydrALAZINE HCL 20 MG/ML VIAL IV. PRN (08:34)
--- NOTE | 2016-12-26 09:17 | Gastroenterology Progress Note ---
Progress Note Date of Service: December 26, 2016 Subjective Pt evaluation today including: conversation w/ patient, physical exam, chart review, lab review Pt was seen and evaluated this AM. Yesterday there was clinical concern for a retained stone with spike in TB and DB, however, patient was asymptomatic on exam. However, during the evening and through the early AM there was severe RUQ pain and nausea. This was constant and sharp. Did not radiate. No aggravating or alleviating factors. This spontanously resolved this AM. Now the patient is without any complaints. Had one episode of loose stools this AM, no black or bloody stools. Denies fever, chills, chest pain, SOB, abdominal pain, black/bloody stools. Review of Systems Constitutional: No chills, No fever Respiratory: No cough, No shortness of breath Cardiac: No chest pain, No edema Abdomen: No constipation, No nausea, No pain, No vomiting Medications Current Inpatient Medications Medications (Trade) Dose Ordered Sig/Yola Route Start Time Stop Time Status Last Admin Dose Admin Acetaminophen (Tylenol Tab) 650 mg Q4H PRN PO 12/20/16 13:15 01/19/17 13:14 12/24/16 04:02 650 MG Ondansetron HCl (Zofran Inj) 4 mg Q6H PRN IV 12/20/16 13:15 01/19/17 13:14 12/25/16 20:09 4 MG Allopurinol (Zyloprim Tab) 100 mg DAILY PO 12/21/16 09:00 01/20/17 08:59 12/26/16 08:31 100 MG Aspirin (Ecotrin Tab) 81 mg DAILY PO 12/21/16 09:00 01/20/17 08:59 12/26/16 08:32 81 MG Pantoprazole Sodium (Protonix Tab) 40 mg DAILY PO 12/21/16 09:00 01/20/17 08:59 12/26/16 08:31 40 MG Miscellaneous Information (Order Awaiting Action) 1 ea QS N/A 12/20/16 16:00 01/19/17 15:59 Thyroid ([place] Thyroid Tab) 90 mg DAILY PO 12/21/16 09:00 01/20/17 08:59 12/26/16 08:32 90 MG Nitroglycerin (Nitroglycerin 2% Oint) 1 inch Q6 EXT 12/22/16 12:00 01/21/17 11:59 12/26/16 06:16 1 INCH Hydralazine HCl (HydrALAZINE INJ) 10 mg Q4H PRN IV. 12/22/16 16:45 01/21/17 16:44 12/26/16 08:34 10 MG Metoprolol Tartrate (Lopressor Tab) 75 mg BID PO 12/23/16 22:30 01/22/17 22:29 12/26/16 08:31 75 MG Polyethylene (Miralax Powder Packet) 17 gm DAILY PRN PO 12/24/16 03:15 01/23/17 03:14 12/24/16 04:02 17 GM Simethicone (Mylicon Chew Tab) 80 mg Q6H PRN PO 12/24/16 02:45 01/23/17 02:44 12/24/16 03:37 80 MG Magnesium Chloride 64 mg 64 mg BID PO 12/24/16 09:00 01/23/17 08:59 12/26/16 08:32 64 MG Sodium Chloride (Nss 1000ml) 1,000 ml @ 75 mls/hr [id number] IV 12/24/16 08:30 01/23/17 08:29 12/26/16 01:30 75 MLS/HR Cholecalciferol 5000 inter.unit 5,000 inter.unit Mo@0900 PO 12/25/16 09:00 01/24/17 08:59 12/25/16 08:56 5,000 INTER.UNIT Acetaminophen/ Empty Bag (Ofirmev Iv/ Empty Iv Bag 100ml) 100 ml @ 400 mls/hr Q8H IV 12/24/16 14:00 01/23/17 13:59 12/26/16 06:17 400 MLS/HR Morphine Sulfate (MoRPHine SULFATE INJ) 2 mg Q1HWA PRN IV 12/24/16 13:45 01/07/17 13:44 Cefuroxime Axetil (Ceftin Tab) 500 mg BID PO 12/25/16 17:00 01/04/17 16:59 12/26/16 08:31 500 MG Metronidazole (Flagyl Tab) 500 mg TID PO 12/25/16 17:00 01/04/17 16:59 12/26/16 08:32 500 MG Objective Vital Signs Date Time Temp Pulse Resp B/P Pulse Ox O2 Delivery O2 Flow Rate FiO2 12/26/16 08:11 36.4 70 22 182/73 91 Room Air 12/26/16 04:00 36.6 73 18 153/55 93 Room Air 12/26/16 04:00 Room Air 12/25/16 23:59 Room Air 12/25/16 23:56 36.3 67 18 132/54 94 Room Air 12/25/16 22:00 36.4 68 16 95 2.0 12/25/16 21:52 68 177/63 12/25/16 17:23 68 153/67 12/25/16 16:00 Room Air 12/25/16 15:08 36.4 68 16 133/53 95 Room Air 12/25/16 12:03 68 155/72 12/25/16 11:05 Room Air 12/25/16 11:03 36.5 71 16 163/75 96 Room Air 12/25/16 10:54 36.4 67 18 95 2.0 12/25/16 10:25 176/68 Physical Exam General Appearance: no apparent distress Eyes: PERRL ENT: hearing grossly normal Neck: supple Respiratory/Chest: lungs clear, no respiratory distress Cardiovascular: regular rate, rhythm Abdomen: normal bowel sounds, non tender, soft, no organomegaly, no pulsatile mass Neurologic/Psych: alert, normal mood/affect, oriented x 3 Skin: normal color, no jaundice, warm/dry, no rash Laboratory Results Last 24 Hours Test 12/26/16 06:03 Activated Partial Thromboplast Time 28.0 SECONDS Partial Thromboplastin Ratio 1.1 Sodium Level 142 mmol/L Potassium Level 4.1 mmol/L Chloride Level 110 mmol/L Carbon Dioxide Level 23 mmol/L Anion Gap 9.0 mmol/L Blood Urea Nitrogen 14 mg/dl Creatinine 1.40 mg/dl Est Creatinine Clear Calc Drug Dose 28.9 ml/min Estimated GFR () 39.6 Estimated GFR (Non- 34.2 BUN/Creatinine Ratio 10.0 Random Glucose 66 mg/dl Calcium Level 8.7 mg/dl Magnesium Level 1.9 mg/dl Total Bilirubin 2.0 mg/dl Direct Bilirubin 1.5 mg/dl Aspartate Amino Transf (AST/SGOT) 49 U/L Alanine Aminotransferase (ALT/SGPT) 40 U/L Alkaline Phosphatase 226 U/L Total Protein 5.7 gm/dl Albumin 2.5 gm/dl Assessment and Plan Patient is a 86 year old female with asymptomatic elevation of LFTs amd MRCP with obstructive stone - she was admitted with SVT - had ablation on 12/21/16. Troponin elevated 0.273. TB 1.6, DB 0.6, AST 136, ALT 108, ALK 267 on 12/21/16. Acute events overnight w/ BP 209/80, MCCLURE, nausea blurred vision, SOB & gagging. EKG w/ acute ischemia overnight, heparin gtt started this AM w/ Troponin elevation of 2.010. ERCP with cholecystectomy on 12/24/16 - now with worsening obstructive labs. Post operative inflammation vs retained stone. Pt become symptomatic last night with RUQ pain and nausea. This spontaneously resolved this AM and now feels well. Likely a retained stone as labs are also improved this am. GI ok to advance diet - I will leave this up to primary team GI suggests to repeat LFTs tomorrow ATTESTATION: I have performed a history and physical examination of this patient and reviewed the electronic record. Specifically, on physical examination there is mild abdominal tenderness. I have discussed the case with SAMUEL Verma. The above note reflects my findings, conclusions, and recommendations. Walt Morse MD
--- NOTE | 2016-12-26 09:42 | Cardiology Follow-Up ---
Subjective Date of Service: December 26, 2016. Pt evaluation today including: conversation w/ patient, physical exam, lab review, review of studies, review of inpatient medication list History of Present Illness This is a very pleasant 86-year-old woman who has a long history of hypertension , hypothyroidism and palpitations. She had been evaluated in our office several times in the past but is seen intermittently, she was seen in 2011 and then in 2014 and is scheduled for visit this week with Dr. Sommers. Her palpitations have been recorded as being due to premature beats, typically atrial premature beats and periods of atrial tachycardia. Her symptoms seem to correlate with these rhythms in the past, however based on her records she also describes her heart "pumping really hard" which is less frequent than the palpitations. More recently she has been having difficulty with her gallbladder and surgery has been recommended, in fact she has an appointment with Dr. Kahn today for that. In addition however her palpitations have become increasingly worse and she notices a rapid heart rate (which she also describes as her heart pumping very hard) frequently over the last 6 weeks. She doesn't think she had this before, although based on her record she may have. She was seen in [facility] where she was told she had SVT and she would probably need to have it ablated. She has noticed over the last several days that the palpitations are present more often than they're not, and she came into the emergency room today. In the emergency room she was noted to have supraventricular tachycardia which terminated on several occasions with adenosine but restarted. Intravenous beta- blockade (metoprolol 10 mg) helped somewhat with slowing of the rate down to about 120 bpm from 150 and with spontaneous termination but reinitiation occurring. She did not have lightheadedness or dizziness, has not had presyncope or syncope. She did not have chest discomfort. She underwent electrophysiologic study and ablation on 12/21/2016. 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 Ablation was performed with elimination of antegrade dual AV abdoul pathways, improvement in fast pathway conduction and no inducibility from the atrium. Surprisingly she had another type of SVT which also appeared to be AV abdoul reentry which was only induced from the ventricle but could be reproducibly induced. The rate was slower (right 125 bpm) and this may be a non-clinical arrhythmia although we can't be sure. A brief attempt was made to ablate this arrhythmia however the ablation sites appear to be located very near the normal conduction system therefore no further ablation was done as the need for pacemaker is likely and this may not be a clinically relevant arrhythmia. She has had no further SVT. She had an episode of severe shortness of breath and nausea, on electrocardiography she did have inferolateral T-wave inversions and her troponin elevated to 2. She was extremely hypertensive at the time. She specifically reports that she did not have chest discomfort. Catheterization however showed significant disease, however it was felt to be a high risk intervention and there did not appear to be an acute event. In the future if she has recurrent difficulties we may need to consider high risk intervention or bypass surgery, however she did undergo laparoscopic cholecystectomy without difficulty. She has been doing well from the cardiovascular standpoint. She has had no further SVT or palpitations, she has had no chest discomfort or further shortness of breath. Social History Smoking Status: Never Smoker History of Alcohol Use: No Review of Systems Respiratory: No cough, No shortness of breath Cardiac: No chest pain, No edema Medications Cardiovascular: Item Value Date Time Aspirin 81 mg 12/21/16 0900 (Ecotrin Tab) DAILY/PO 12/21/16 0822 Hydrochlorothiazide 25 mg 12/21/16 0900 (Hydrochlorothiazide DAILY/PO 12/21/16 0821 Tab) Metoprolol 75 mg 12/23/16 2230 Tartrate BID/PO 12/25/16 2154 (Lopressor Tab) Hydralazine HCl 10 mg 12/22/16 1645 (HydrALAZINE INJ) Q4H PRN/IV. 12/25/16 1030 Nitroglycerin 1 inch 12/22/16 1200 (Nitroglycerin Q6/EXT 12/26/16 0616 2% Oint) Aspirin 81 mg 12/21/16 0900 (Ecotrin Tab) DAILY/PO 12/25/16 0856 Objective Vital Signs Past 12 Hours Date Time Temp Pulse Resp B/P Pulse Ox O2 Delivery O2 Flow Rate FiO2 12/26/16 08:11 36.4 70 22 182/73 91 Room Air 12/26/16 04:00 36.6 73 18 153/55 93 Room Air 12/26/16 04:00 Room Air 12/25/16 23:59 Room Air 12/25/16 23:56 36.3 67 18 132/54 94 Room Air 12/25/16 22:00 36.4 68 16 95 2.0 12/25/16 21:52 68 177/63 Last Recorded Weight-Kilograms: 80.400 Intake & Output 8-Hour Column 12/25/16 12/26/16 12/26/16 16:00 00:00 08:00 Intake Total 793 ml 200 ml 860 ml Output Total 350 ml 1000 ml 1100 ml Balance 443 ml -800 ml -240 ml 24-Hour Column 12/26/16 08:00 Intake Total 1853 ml Output Total 2450 ml Balance -597 ml Physical Exam Constitutional: General Apperance: heathly-appearing Level of Distress: NAD Lungs: Respiratory effort: no dyspnea, good air movement Auscultation: no wheezing, rales/crackles on the left, rales/crackles on the right Cardiovascular: Heart Auscultation: RRR, no murmurs, no rubs, no gallops, tachycardia Peripheral Pulses: Bruits: none appreciated Extremities: no edema Data Laboratory Results: Last 24 Hours Test 12/26/16 06:03 Activated Partial Thromboplast Time 28.0 SECONDS Partial Thromboplastin Ratio 1.1 Sodium Level 142 mmol/L Potassium Level 4.1 mmol/L Chloride Level 110 mmol/L Carbon Dioxide Level 23 mmol/L Anion Gap 9.0 mmol/L Blood Urea Nitrogen 14 mg/dl Creatinine 1.40 mg/dl Est Creatinine Clear Calc Drug Dose 28.9 ml/min Estimated GFR () 39.6 Estimated GFR (Non- 34.2 BUN/Creatinine Ratio 10.0 Random Glucose 66 mg/dl Calcium Level 8.7 mg/dl Magnesium Level 1.9 mg/dl Total Bilirubin 2.0 mg/dl Direct Bilirubin 1.5 mg/dl Aspartate Amino Transf (AST/SGOT) 49 U/L Alanine Aminotransferase (ALT/SGPT) 40 U/L Alkaline Phosphatase 226 U/L Total Protein 5.7 gm/dl Albumin 2.5 gm/dl Telemetry reviewed: Sinus rhythm, no SVT Assessment and Plan #1. SVT: Her clinical SVT (which she arrived in the laboratory in) was typical AV abdoul reentry and she had associated antegrade dual AV abdoul pathways and moderate baseline fast pathway dysfunction however after ablation she had no evidence of antegrade dual pathways, and improvement in her fast pathway and no inducibility from the atrium. She does however have another SVT which is induced only from the ventricle, but was reproducibly induced and appears to be a different form of typical AV abdoul reentry at a slower heart rate. I don't know that this is a clinical arrhythmia although it is possible. Ablation of this will have a higher likelihood of causing heart block based on location of the pathway, therefore that was not done but if it becomes a clinical problem it could be done although a pacemaker may be necessary afterwards. So far she has had no further recurrence. #2. 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 She had significant coronary artery disease however did not have evidence of an acute event, she was very hypertensive and is probably demand ischemia in the face of high demand. As such with good blood pressure and heart rate control she may not have further events. She does need risk factor modification (hypertension, diet, medications) #3. Palpitations: Historically the majority of her palpitations appear to be premature atrial beats, but perhaps some of it was SVT although she doesn't specifically recall that and I don't think it was recorded. Her palpitations have not been much of a problem lately and generally they do not bother her very much although she notices that. #4. Gallbladder disease: She has concomitant gallbladder disease, and surgery has been done and she is recovering well. She evidently has a steam cleaner near her home, although she has been seen here in the past, and does need follow-up with cardiology either here or with her local steam cleaner. Thank you for allowing me to participate in her care.
--- NOTE | 2016-12-26 09:59 | Progress Note ---
Internal Med Progress Note Date of Service: December 26, 2016. Provider Documentation: SUBJECTIVE: Patient is doing much better today. No abdominal pain, nausea, vomiting, fever, chills. No chest pain, SOB. OBJECTIVE: Vital Signs-as noted below Exam: General Appearance: Moderately built and nourished, no apparent distress Eyes: Icterus + Neck: supple Respiratory/Chest: Normal breath sounds, CTA Cardiovascular: S1, S2, No murmur Abdomen/GI:Soft, non tender, Bowel sounds present Extremities/Musculoskelatal:normal inspection, Trace edema + Neurologic/Psych:AAOX3, grossly no focal neurological deficits Lab data as noted below. ASSESSMENT & PLAN: ASSESSMENT & PLAN: SVT : Presented with H/O palpitations since 6 weeks and had nausea, vomiting, palpitations 1 day prior to admission . Admitted at [facility] for SVT and BB changed from Nadolol to metoprolol . Found to be in SVT in ED: Treated with adenosine x 2 and metoprolol x 2. and was on esmolol drip -S/P Ablation on 12/21/16 -Troponin mildly elevated. -S/P Cardiac catheterization on 12/22/16: 12/22/16: Severe 2 vessel CAD ( 70-80% focal mid LAD stenosis, 70% ostial circumflex stenosis) -Continue with Metoprolol 75 mg PO BID. Start Statin after procedure. -ECHO: EF: 60-65% -Appreciate Cardiology Dr. Mcdowell inputs CHOLELITHIASIS, CHOLEDOCHOLITHIASIS ACUTE CHOLECYSTITIS S/P LAPAROSCOPIC CHOLESYSTECTOMY: On 12/24/16 -11MM stone in CBD on MRI s/p Sphincterotomy and CBD dilatation on 12/24/16 -LFTs went up on 12/25/16 with significant abdominal pain--> likely passed CBD stone--> LFTs trending down -On cefuroxime BID/Flagyl TID -GI/Surgery on board. UBALDO : Cr:1.6 --> 1.4 -Continue IV fluids -Monitor creatinine HEADACHE : Resolved Transient Blurry vision; No focal deficits -CT head: unremarkable HTN : Uncontrolled -Continue metoprolol. Amlodipine 5 mg added -Hold HCTZ due to elevated creatinine -Monitor RIGHT KIDNEY LESION : 1.8 cm systic lesion noted on upper pole of R kidney on MRI -Needs follow up ultrasound as outpatient in 3-6 months -Renal function wnl HYPOTHYROIDISM low TSH ; Normal T3,T4 -Continue Synthroid -Need to repeat thyroid function as outpatient DVT PX -SQ Heparin -SCDs CODE STATUS -Full code DISPOSITION: -Continue monitoring in Tele -Patient doesn't prefer to go to any Rehab/SNF facility, wants to go home Discharge in 1-2 days Vital Signs: Date Time Temp Pulse Resp B/P Pulse Ox O2 Delivery O2 Flow Rate FiO2 12/26/16 08:11 36.4 70 22 182/73 91 Room Air 12/26/16 08:00 Room Air 2.0 12/26/16 04:00 36.6 73 18 153/55 93 Room Air 12/26/16 04:00 Room Air 12/25/16 23:59 Room Air 12/25/16 23:56 36.3 67 18 132/54 94 Room Air 12/25/16 22:00 36.4 68 16 95 2.0 12/25/16 21:52 68 177/63 12/25/16 17:23 68 153/67 12/25/16 16:00 Room Air 12/25/16 15:08 36.4 68 16 133/53 95 Room Air 12/25/16 12:03 68 155/72 12/25/16 11:05 Room Air 12/25/16 11:03 36.5 71 16 163/75 96 Room Air 12/25/16 10:54 36.4 67 18 95 2.0 Lab Results: Results Past 24 Hours Test 12/26/16 06:03 Range/Units Activated Partial Thromboplast Time 28.0 21.0-31.0 SECONDS Partial Thromboplastin Ratio 1.1 Sodium Level 142 136-145 mmol/L Potassium Level 4.1 3.5-5.1 mmol/L Chloride Level 110 98-107 mmol/L Carbon Dioxide Level 23 21-32 mmol/L Anion Gap 9.0 3-11 mmol/L Blood Urea Nitrogen 14 7-18 mg/dl Creatinine 1.40 0.60-1.20 mg/dl Est Creatinine Clear Calc Drug Dose 28.9 ml/min Estimated GFR () 39.6 Estimated GFR (Non- 34.2 BUN/Creatinine Ratio 10.0 10-20 Random Glucose 66 70-99 mg/dl Calcium Level 8.7 8.5-10.1 mg/dl Magnesium Level 1.9 1.8-2.4 mg/dl Total Bilirubin 2.0 0.2-1 mg/dl Direct Bilirubin 1.5 0-0.2 mg/dl Aspartate Amino Transf (AST/SGOT) 49 15-37 U/L Alanine Aminotransferase (ALT/SGPT) 40 12-78 U/L Alkaline Phosphatase 226 45-117 U/L Total Protein 5.7 6.4-8.2 gm/dl Albumin 2.5 3.4-5.0 gm/dl
[2016-12-26] MEDS: AMLODIPINE BESYLATE 5 MG TAB PO SCH (11:27)
[2016-12-26] MEDS ORDERED: MoRPHine SULFATE 2 MG/ML CARP IV PRN (12:00)
[2016-12-26] MEDS ORDERED: HydrALAZINE HCL 20 MG/ML VIAL IV. PRN (16:45)
[2016-12-27] MEDS: SODIUM CHLORIDE 0.9% 1000ML 1,000 ML IV SCH (02:33)
[2016-12-27 03:45] VITALS: BP 151/52; PULSE 74; TEMP 36.9; O2SAT 98
[2016-12-27 04:00] VITALS: O2SAT 98
[2016-12-27 06:41] LABS: HEMATOCRIT 31.8 % (37-47); MEAN CELL VOLUME 94.9 fL (80-100); MEAN CORPUSCULAR HEMOGLOBIN 31.3 pg (25-34); MEAN PLATELET VOLUME 9.4 fL (7.4-10.4); PLATELET COUNT 220 K/uL (130-400); RED BLOOD COUNT 3.35 M/uL (4.2-5.4); WHITE BLOOD COUNT 7.09 K/uL (4.8-10.8)
[2016-12-27 06:50] LABS: PARTIAL THROMBOPLASTIN RATIO 1.1
[2016-12-27 07:17] VITALS: BP 172/77; PULSE 69; TEMP 36.5; O2SAT 96
[2016-12-27] MEDS: RESTASIS-ORDER AWAITING ACTION SCH (07:31)
[2016-12-27] MEDS: METRONIDAZOLE 500 MG TAB PO SCH (07:31)
[2016-12-27] MEDS: AMLODIPINE BESYLATE 5 MG TAB PO SCH (07:32)
[2016-12-27] MEDS: MAGNESIUM CHLORIDE 64MG DELAYED REL TAB PO SCH (07:32)
[2016-12-27] MEDS: ARMOUR THYROID 30 MG TAB PO SCH (07:32)
[2016-12-27] MEDS: METOPROLOL TARTRATE 25 MG TAB PO SCH (07:32)
[2016-12-27] MEDS: ASPIRIN 81 MG ECTAB PO SCH (07:32)
[2016-12-27] MEDS: PANTOprazole SOD 40 MG TAB PO SCH (07:33)
[2016-12-27] MEDS: ALLOPURINOL 100 MG TAB PO SCH (07:33)
[2016-12-27] MEDS: CEFUROXIME AXETIL 500 MG TAB PO SCH (07:33)
[2016-12-27 07:35] LABS: ALB/GLOB RATIO 0.8 (0.9-2); BUN/CREATININE RATIO 9.5 (10-20); CALCIUM 8.5 mg/dl (8.5-10.1); POTASSIUM 3.9 mmol/L (3.5-5.1)
--- NOTE | 2016-12-27 08:06 | Discharge Instructions ---
Discharge Instructions Date of Service December 27, 2016. Admission Reason for Admission: SVT Discharge Discharge Diagnosis / Problem: SVT, Laparoscopic Cholecystectomy Discharge Goals Goal(s): Decrease discomfort, Improve function Activity Recommendations Activity Limitations: as noted below Lifting Limitations: no more than 10 pounds Exercise/Sports Limitations: until after follow-up appointment May Resume Sexual Activity: after follow-up appointment Shower/Bathe: no limitations . Instructions / Follow-Up Instructions / Follow-Up Please follow-up with Dr. Kahn in the office in 1-2 weeks. You can make an appointment by calling [phone]. Dr. Kahn's office is located at [address] [place] [address] [place] [address] Any questions or concerns you can call the office at [phone]. Current Hospital Diet Patient's current hospital diet: AHA Diet (Heart Healthy) Discharge Diet Recommended Diet: AHA Diet (Heart Healthy) Procedures Procedures Performed: Laparoscopic Cholecystectomy and Endoscopic Retrograde Cholangiopancreato Pending Studies Studies pending at discharge: no Medical Emergencies . Who to Call and When: Medical Emergencies: If at any time you feel your situation is an emergency, please call 911 immediately. . Non-Emergent Contact Non-Emergency issues call your: Primary Care Provider, Surgeon Call Non-Emergent contact if: temperature is above 101.5, your pain is not controlled, wound has increased drainage, wound has increased redness . "Provider Documentation" section prepared by Liliane Márquez. . VTE Core Measure Inpt VTE Proph given/why not?: Unfractionated heparin SQ, SCD's
--- NOTE | 2016-12-27 08:57 | Surgery Progress Note ---
Surgery Progress Note Date of Service December 27, 2016. Subjective + feeling well feeling great. abner diet. no further n/v. minimal pain. Objective Vital Signs: Date Time Temp Pulse Resp B/P Pulse Ox O2 Delivery O2 Flow Rate FiO2 12/27/16 07:17 36.5 69 19 172/77 96 Room Air 12/27/16 04:00 98 Room Air 12/27/16 03:45 36.9 74 18 151/52 98 Room Air 12/26/16 23:59 96 Room Air 12/26/16 22:53 37.0 86 18 136/63 96 Room Air 12/26/16 20:38 161/64 12/26/16 20:00 Room Air 12/26/16 19:16 36.8 76 16 174/63 95 Room Air 12/26/16 16:00 Room Air 12/26/16 15:47 36.9 74 18 163/64 96 Room Air 12/26/16 12:00 Room Air 12/26/16 11:06 36.6 76 16 178/70 95 Abdomen: non distended, soft Incision(s): clean, dry, intact, no erythema Laboratory Results: Results Past 24 Hours Test 12/27/16 06:15 Range/Units White Blood Count 7.09 4.8-10.8 K/uL Red Blood Count 3.35 4.2-5.4 M/uL Hemoglobin 10.5 12.0-16.0 g/dL Hematocrit 31.8 37-47 % Mean Corpuscular Volume 94.9 80-100 fL Mean Corpuscular Hemoglobin 31.3 25-34 pg Mean Corpuscular Hemoglobin Concent 33.0 32-36 g/dl RDW Standard Deviation 55.9 36.4-46.3 fL RDW Coefficient of Variation 16.1 11.5-14.5 % Platelet Count 220 130-400 K/uL Mean Platelet Volume 9.4 7.4-10.4 fL Activated Partial Thromboplast Time 27.3 21.0-31.0 SECONDS Partial Thromboplastin Ratio 1.1 Sodium Level 143 136-145 mmol/L Potassium Level 3.9 3.5-5.1 mmol/L Chloride Level 111 98-107 mmol/L Carbon Dioxide Level 20 21-32 mmol/L Anion Gap 12.0 3-11 mmol/L Blood Urea Nitrogen 9 7-18 mg/dl Creatinine 1.00 0.60-1.20 mg/dl Est Creatinine Clear Calc Drug Dose 40.2 ml/min Estimated GFR () 59.5 Estimated GFR (Non- 51.3 BUN/Creatinine Ratio 9.5 10-20 Random Glucose 70 70-99 mg/dl Calcium Level 8.5 8.5-10.1 mg/dl Total Bilirubin 1.2 0.2-1 mg/dl Direct Bilirubin 0.6 0-0.2 mg/dl Aspartate Amino Transf (AST/SGOT) 29 15-37 U/L Alanine Aminotransferase (ALT/SGPT) 27 12-78 U/L Alkaline Phosphatase 223 45-117 U/L Total Protein 5.8 6.4-8.2 gm/dl Albumin 2.6 3.4-5.0 gm/dl Globulin 3.2 2.5-4.0 gm/dl Albumin/Globulin Ratio 0.8 0.9-2 Assessment & Plan 12/27/16 doing well ok for d/c LFT's normalizing. post op instructions given 12/25/16 pt clinically doing much better LFT's up today scheduled for repeat MRCP today will follow results closely 12/24/16 LFT"s worsened again d/w GI. they are planning ercp today. would be best to do one anesthetic. discussed her considerable risks ( bleeding/infection/mi/dvt/pe/injury to bowel or bile ducts etc...) discussed options. answered questions. she wishes to proceed wit lap elia today following ercp 12/23/16 LFT's still elevated apparently ok from cardiac standpoint for ercp,LFT's still elevated.... will await GI input for ERCP... will d/w Dr. Gutierrez regarding lap elia after ERCP 12/25/16 pt clinically doing much better LFT's up today scheduled for repeat MRCP today will follow results closely 12/24/16 LFT"s worsened again d/w GI. they are planning ercp today. would be best to do one anesthetic. discussed her considerable risks ( bleeding/infection/mi/dvt/pe/injury to bowel or bile ducts etc...) discussed options. answered questions. she wishes to proceed wit lap elia today following ercp 12/23/16 LFT's still elevated apparently ok from cardiac standpoint for ercp,LFT's still elevated.... will await GI input for ERCP... will d/w Dr. Gutierrez regarding lap elia after ERCP
--- NOTE | 2016-12-27 09:10 | Gastroenterology Progress Note ---
Progress Note Date of Service: December 27, 2016 Subjective Pt evaluation today including: conversation w/ patient, conversation w/ family , physical exam, chart review, lab review Pt was seen and examined this AM. She is doing well clinically and has no complaints. No fever, chills, chest pain, SOB, abdominal pain, black/bloody stools, N/V/D/C. She is to be discharged today. Review of Systems Constitutional: No chills, No fever ENT: No hearing loss Respiratory: No cough, No shortness of breath Cardiac: No chest pain, No edema Abdomen: No diarrhea, No nausea, No pain, No vomiting Medications Current Inpatient Medications Medications (Trade) Dose Ordered Sig/Yola Route Start Time Stop Time Status Last Admin Dose Admin Acetaminophen (Tylenol Tab) 650 mg Q4H PRN PO 12/20/16 13:15 01/19/17 13:14 12/24/16 04:02 650 MG Ondansetron HCl (Zofran Inj) 4 mg Q6H PRN IV 12/20/16 13:15 01/19/17 13:14 12/25/16 20:09 4 MG Allopurinol (Zyloprim Tab) 100 mg DAILY PO 12/21/16 09:00 01/20/17 08:59 12/27/16 07:33 100 MG Aspirin (Ecotrin Tab) 81 mg DAILY PO 12/21/16 09:00 01/20/17 08:59 12/27/16 07:32 81 MG Pantoprazole Sodium (Protonix Tab) 40 mg DAILY PO 12/21/16 09:00 01/20/17 08:59 12/27/16 07:33 40 MG Miscellaneous Information (Order Awaiting Action) 1 ea QS N/A 12/20/16 16:00 01/19/17 15:59 Thyroid ([place] Thyroid Tab) 90 mg DAILY PO 12/21/16 09:00 01/20/17 08:59 12/27/16 07:32 90 MG Metoprolol Tartrate (Lopressor Tab) 75 mg BID PO 12/23/16 22:30 01/22/17 22:29 12/27/16 07:32 75 MG Polyethylene (Miralax Powder Packet) 17 gm DAILY PRN PO 12/24/16 03:15 01/23/17 03:14 12/24/16 04:02 17 GM Simethicone (Mylicon Chew Tab) 80 mg Q6H PRN PO 12/24/16 02:45 01/23/17 02:44 12/24/16 03:37 80 MG Magnesium Chloride 64 mg 64 mg BID PO 12/24/16 09:00 01/23/17 08:59 12/27/16 07:32 64 MG Sodium Chloride (Nss 1000ml) 1,000 ml @ 75 mls/hr [id number] IV 12/24/16 08:30 01/23/17 08:29 12/27/16 02:33 75 MLS/HR Cholecalciferol (Vitamin D Tab) 5,000 inter.unit Mo@0900 PO 12/25/16 09:00 01/24/17 08:59 12/25/16 08:56 5,000 INTER.UNIT Cefuroxime Axetil (Ceftin Tab) 500 mg BID PO 12/25/16 17:00 01/04/17 16:59 12/27/16 07:33 500 MG Metronidazole (Flagyl Tab) 500 mg TID PO 12/25/16 17:00 01/04/17 16:59 12/27/16 07:31 500 MG Hydralazine HCl (HydrALAZINE INJ) 10 mg Q8H PRN IV. 12/26/16 16:45 01/25/17 16:44 12/26/16 19:30 10 MG Morphine Sulfate (MoRPHine SULFATE INJ) 2 mg Q6HWA PRN IV 12/26/16 12:00 01/09/17 11:59 Amlodipine Besylate (Norvasc Tab) 5 mg DAILY PO 12/26/16 10:30 01/25/17 10:29 12/27/16 07:32 5 MG Objective Vital Signs Date Time Temp Pulse Resp B/P Pulse Ox O2 Delivery O2 Flow Rate FiO2 12/27/16 07:17 36.5 69 19 172/77 96 Room Air 12/27/16 04:00 98 Room Air 12/27/16 03:45 36.9 74 18 151/52 98 Room Air 12/26/16 23:59 96 Room Air 12/26/16 22:53 37.0 86 18 136/63 96 Room Air 12/26/16 20:38 161/64 12/26/16 20:00 Room Air 12/26/16 19:16 36.8 76 16 174/63 95 Room Air 12/26/16 16:00 Room Air 12/26/16 15:47 36.9 74 18 163/64 96 Room Air 12/26/16 12:00 Room Air 12/26/16 11:06 36.6 76 16 178/70 95 Physical Exam General Appearance: no apparent distress Eyes: PERRL ENT: hearing grossly normal Neck: supple Respiratory/Chest: lungs clear Cardiovascular: regular rate, rhythm Abdomen: normal bowel sounds, non tender, soft, no organomegaly, no pulsatile mass Neurologic/Psych: alert, normal mood/affect, oriented x 3 Skin: normal color Laboratory Results Last 24 Hours Test 12/27/16 06:15 White Blood Count 7.09 K/uL Red Blood Count 3.35 M/uL Hemoglobin 10.5 g/dL Hematocrit 31.8 % Mean Corpuscular Volume 94.9 fL Mean Corpuscular Hemoglobin 31.3 pg Mean Corpuscular Hemoglobin Concent 33.0 g/dl RDW Standard Deviation 55.9 fL RDW Coefficient of Variation 16.1 % Platelet Count 220 K/uL Mean Platelet Volume 9.4 fL Activated Partial Thromboplast Time 27.3 SECONDS Partial Thromboplastin Ratio 1.1 Sodium Level 143 mmol/L Potassium Level 3.9 mmol/L Chloride Level 111 mmol/L Carbon Dioxide Level 20 mmol/L Anion Gap 12.0 mmol/L Blood Urea Nitrogen 9 mg/dl Creatinine 1.00 mg/dl Est Creatinine Clear Calc Drug Dose 40.2 ml/min Estimated GFR () 59.5 Estimated GFR (Non- 51.3 BUN/Creatinine Ratio 9.5 Random Glucose 70 mg/dl Calcium Level 8.5 mg/dl Total Bilirubin 1.2 mg/dl Direct Bilirubin 0.6 mg/dl Aspartate Amino Transf (AST/SGOT) 29 U/L Alanine Aminotransferase (ALT/SGPT) 27 U/L Alkaline Phosphatase 223 U/L Total Protein 5.8 gm/dl Albumin 2.6 gm/dl Globulin 3.2 gm/dl Albumin/Globulin Ratio 0.8 Assessment and Plan Patient is a 86 year old female with asymptomatic elevation of LFTs amd MRCP with obstructive stone - she was admitted with SVT - had ablation on 12/21/16. Troponin elevated 0.273. TB 1.6, DB 0.6, AST 136, ALT 108, ALK 267 on 12/21/16. Acute events overnight w/ BP 209/80, MCCLURE, nausea blurred vision, SOB & gagging. EKG w/ acute ischemia overnight, heparin gtt started this AM w/ Troponin elevation of 2.010. ERCP with cholecystectomy on 12/24/16 - now with worsening obstructive labs. Post operative inflammation vs retained stone. Pt become symptomatic last night with RUQ pain and nausea. This spontaneously resolved this AM and now feels well. Likely a retained stone as labs are also improved this am. Repeat labs on 12/27/16 continue to be improved and almost at baseline. Follow up PRN GI to sign off. No GI contraindication to discharge. ATTESTATION: I have performed a history and physical examination of this patient and reviewed the electronic record. Specifically, on physical examination there is minimal RUQ tenderness. I have discussed the case with SAMUEL Verma. The above note reflects my findings, conclusions, and recommendations. Walt Morse MD
[2016-12-27 09:54] VITALS: BP 163/70
--- NOTE | 2016-12-27 09:57 | Cardiology Follow-Up ---
Subjective Date of Service: December 27, 2016. Pt evaluation today including: conversation w/ patient, physical exam, lab review, review of studies, review of inpatient medication list History of Present Illness This is a very pleasant 86-year-old woman who has a long history of hypertension , hypothyroidism and palpitations. She had been evaluated in our office several times in the past but is seen intermittently, she was seen in 2011 and then in 2014 and is scheduled for visit this week with Dr. Sommers. Her palpitations have been recorded as being due to premature beats, typically atrial premature beats and periods of atrial tachycardia. Her symptoms seem to correlate with these rhythms in the past, however based on her records she also describes her heart "pumping really hard" which is less frequent than the palpitations. More recently she has been having difficulty with her gallbladder and surgery has been recommended, in fact she has an appointment with Dr. Kahn today for that. In addition however her palpitations have become increasingly worse and she notices a rapid heart rate (which she also describes as her heart pumping very hard) frequently over the last 6 weeks. She doesn't think she had this before, although based on her record she may have. She was seen in [facility] where she was told she had SVT and she would probably need to have it ablated. She has noticed over the last several days that the palpitations are present more often than they're not, and she came into the emergency room today. In the emergency room she was noted to have supraventricular tachycardia which terminated on several occasions with adenosine but restarted. Intravenous beta- blockade (metoprolol 10 mg) helped somewhat with slowing of the rate down to about 120 bpm from 150 and with spontaneous termination but reinitiation occurring. She did not have lightheadedness or dizziness, has not had presyncope or syncope. She did not have chest discomfort. She underwent electrophysiologic study and ablation on 12/21/2016. 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 Ablation was performed with elimination of antegrade dual AV abdoul pathways, improvement in fast pathway conduction and no inducibility from the atrium. Surprisingly she had another type of SVT which also appeared to be AV abdoul reentry which was only induced from the ventricle but could be reproducibly induced. The rate was slower (right 125 bpm) and this may be a non-clinical arrhythmia although we can't be sure. A brief attempt was made to ablate this arrhythmia however the ablation sites appear to be located very near the normal conduction system therefore no further ablation was done as the need for pacemaker is likely and this may not be a clinically relevant arrhythmia. She had an episode of severe shortness of breath and nausea, on electrocardiography she did have inferolateral T-wave inversions and her troponin elevated to 2. She was extremely hypertensive at the time. She specifically reports that she did not have chest discomfort. Catheterization however showed significant disease, however it was felt to be a high risk intervention and there did not appear to be an acute event. In the future if she has recurrent difficulties we may need to consider high risk intervention or bypass surgery, however she did undergo laparoscopic cholecystectomy without difficulty. She has been doing well from the cardiovascular standpoint. She has had no further palpitations, she has had no chest discomfort or further shortness of breath. Social History Smoking Status: Never Smoker History of Alcohol Use: No Review of Systems Respiratory: No cough, No shortness of breath Cardiac: No chest pain, No edema Medications Cardiovascular: Item Value Date Time Hydralazine HCl 10 mg 12/26/16 1645 (HydrALAZINE INJ) Q8H PRN/IV. 12/26/16 1930 Amlodipine 5 mg 12/26/16 1030 Besylate DAILY/PO 12/27/16 0732 (Norvasc Tab) Metoprolol 75 mg 12/23/16 2230 Tartrate BID/PO 12/27/16 0732 (Lopressor Tab) Aspirin 81 mg 12/21/16 0900 (Ecotrin Tab) DAILY/PO 12/27/16 0732 Objective Vital Signs Past 12 Hours Date Time Temp Pulse Resp B/P Pulse Ox O2 Delivery O2 Flow Rate FiO2 12/27/16 08:00 Room Air 12/27/16 07:17 36.5 69 19 172/77 96 Room Air 12/27/16 04:00 98 Room Air 12/27/16 03:45 36.9 74 18 151/52 98 Room Air 12/26/16 23:59 96 Room Air 12/26/16 22:53 37.0 86 18 136/63 96 Room Air Last Recorded Weight-Kilograms: 79.700 Intake & Output 8-Hour Column 12/26/16 12/26/16 12/27/16 15:59 23:59 07:59 Intake Total 706 ml 783 ml 587 ml Output Total 775 ml 550 ml 600 ml Balance -69 ml 233 ml -13 ml 24-Hour Column 12/27/16 07:59 Intake Total 2076 ml Output Total 1925 ml Balance 151 ml Physical Exam Constitutional: General Apperance: heathly-appearing Level of Distress: NAD Lungs: Respiratory effort: no dyspnea, good air movement Auscultation: no wheezing, rales/crackles on the left, rales/crackles on the right Cardiovascular: Heart Auscultation: RRR, no murmurs, no rubs, no gallops, tachycardia Peripheral Pulses: Bruits: none appreciated Extremities: no edema Data Laboratory Results: Last 24 Hours Test 12/27/16 06:15 White Blood Count 7.09 K/uL Red Blood Count 3.35 M/uL Hemoglobin 10.5 g/dL Hematocrit 31.8 % Mean Corpuscular Volume 94.9 fL Mean Corpuscular Hemoglobin 31.3 pg Mean Corpuscular Hemoglobin Concent 33.0 g/dl RDW Standard Deviation 55.9 fL RDW Coefficient of Variation 16.1 % Platelet Count 220 K/uL Mean Platelet Volume 9.4 fL Activated Partial Thromboplast Time 27.3 SECONDS Partial Thromboplastin Ratio 1.1 Sodium Level 143 mmol/L Potassium Level 3.9 mmol/L Chloride Level 111 mmol/L Carbon Dioxide Level 20 mmol/L Anion Gap 12.0 mmol/L Blood Urea Nitrogen 9 mg/dl Creatinine 1.00 mg/dl Est Creatinine Clear Calc Drug Dose 40.2 ml/min Estimated GFR () 59.5 Estimated GFR (Non- 51.3 BUN/Creatinine Ratio 9.5 Random Glucose 70 mg/dl Calcium Level 8.5 mg/dl Total Bilirubin 1.2 mg/dl Direct Bilirubin 0.6 mg/dl Aspartate Amino Transf (AST/SGOT) 29 U/L Alanine Aminotransferase (ALT/SGPT) 27 U/L Alkaline Phosphatase 223 U/L Total Protein 5.8 gm/dl Albumin 2.6 gm/dl Globulin 3.2 gm/dl Albumin/Globulin Ratio 0.8 Telemetry reviewed: Sinus rhythm with one episode of what appears to be a slow SVT lasting one and 1 half hours at around midnight. The rate varied somewhat but was averaging around 100-110 bpm. The ME is prolonged during the arrhythmia. Assessment and Plan #1. SVT: Her clinical SVT (which she arrived in the laboratory in) was typical AV abdoul reentry and she had associated antegrade dual AV abdoul pathways and moderate baseline fast pathway dysfunction however after ablation she had no evidence of antegrade dual pathways, and improvement in her fast pathway and no inducibility from the atrium. She does however have another SVT which is induced only from the ventricle, but was reproducibly induced and appears to be a different form of typical AV abdoul reentry at a slower heart rate. The brief episode of tachycardia she had during the night may have been this arrhythmia, however it was asymptomatic, the heart rate was minimally elevated in the low 100s and I would not alter therapy based on this. If it becomes a clinical problem it ablation could be done although a pacemaker may be necessary afterwards. . #2. Coronary artery disease: Her event in the manager business intelligence hours is of uncertain cause. She had significant coronary artery disease however did not have evidence of an acute event, she was very hypertensive and is probably demand ischemia in the face of high demand. As such with good blood pressure and heart rate control she may not have further events. She does need risk factor modification (hypertension, diet, medications) #3. Palpitations: Historically the majority of her palpitations appear to be premature atrial beats, but perhaps some of it was SVT although she doesn't specifically recall that and I don't think it was recorded. Her palpitations have not been much of a problem lately and generally they do not bother her very much although she notices that. Since her ablation she has not complained of palpitations. #4. Gallbladder disease: She has concomitant gallbladder disease, and surgery has been done and she is recovering well. She evidently has a dry end operator near her home, although she has been seen here in the past, and does need follow-up with cardiology either here or with her local dry end operator. Thank you for allowing me to participate in her care.
--- NOTE | 2016-12-27 10:05 | Progress Note ---
Internal Med Progress Note Date of Service: December 27, 2016. Provider Documentation: SUBJECTIVE: Patient is doing well and ready to be discharged waiting for me since morning. No abdominal pain, nausea, vomiting, fever, chills. No chest pain, SOB. Ambulating well Tolerating PO well OBJECTIVE: Vital Signs-as noted below Exam: General Appearance: Moderately built and nourished, no apparent distress Eyes: No icteru Neck: supple Respiratory/Chest: Normal breath sounds, CTA Cardiovascular: S1, S2, No murmur Abdomen/GI:Soft, non tender, Bowel sounds present Extremities/Musculoskelatal:normal inspection, Trace edema + Neurologic/Psych:AAOX3, grossly no focal neurological deficits Lab data as noted below. ASSESSMENT & PLAN: ASSESSMENT & PLAN: SVT : Presented with H/O palpitations since 6 weeks and had nausea, vomiting, palpitations 1 day prior to admission . Admitted at [place] for SVT and BB changed from Nadolol to metoprolol . Found to be in SVT in ED: Treated with adenosine x 2 and metoprolol x 2. and was on esmolol drip -S/P Ablation on 12/21/16 -Troponin mildly elevated -S/P Cardiac catheterization on 12/22/16: 12/22/16: Severe 2 vessel CAD ( 70-80% focal mid LAD stenosis, 70% ostial circumflex stenosis) -Continue with Metoprolol 75 mg PO BID. Start Statin after procedure. -ECHO: EF: 60-65% -Appreciate Cardiology Dr. Mcdowell inputs. 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 She will make appt CHOLELITHIASIS, CHOLEDOCHOLITHIASIS ACUTE CHOLECYSTITIS S/P LAPAROSCOPIC CHOLESYSTECTOMY: On 12/24/16 -11MM stone in CBD on MRI s/p Sphincterotomy and CBD dilatation on 12/24/16 -LFTs went up on 12/25/16 with significant abdominal pain--> likely passed CBD stone--> LFTs trending down -On cefuroxime BID/Flagyl TID- to complete course of 10 days of antibiotics -GI/Surgery on board- both cleared her for discharge. UBALDO : Resolved Cr:1.6 --> 1.4--> 1.00 -IV fluids HEADACHE : Resolved Transient Blurry vision; No focal deficits -CT head: unremarkable HTN : Slightly elevated -Continue metoprolol. Amlodipine 5 mg added during this admission. -HCTZ was held due to elevated creatinine- will re start it on admission -Monitor RIGHT KIDNEY LESION : 1.8 cm systic lesion noted on upper pole of R kidney on MRI -Needs follow up ultrasound as outpatient in 3-6 months -Renal function wnl HYPOTHYROIDISM low TSH ; Normal T3,T4 -Continue Synthroid -Need to repeat thyroid function as outpatient DVT PX -SQ Heparin -SCDs CODE STATUS -Full code DISPOSITION: -Patient doesn't prefer to go to any Rehab/SNF facility, wants to go home and tolerating ambulation very well. -Refusing home health services too as says she has enough support at home -Eager to be discharged -Ok to discharge home today Vital Signs: Date Time Temp Pulse Resp B/P Pulse Ox O2 Delivery O2 Flow Rate FiO2 12/27/16 09:54 163/70 12/27/16 08:00 Room Air 12/27/16 07:17 36.5 69 19 172/77 96 Room Air 12/27/16 04:00 98 Room Air 12/27/16 03:45 36.9 74 18 151/52 98 Room Air 12/26/16 23:59 96 Room Air 12/26/16 22:53 37.0 86 18 136/63 96 Room Air 12/26/16 20:38 161/64 12/26/16 20:00 Room Air 12/26/16 19:16 36.8 76 16 174/63 95 Room Air 12/26/16 16:00 Room Air 12/26/16 15:47 36.9 74 18 163/64 96 Room Air 12/26/16 12:00 Room Air 12/26/16 11:06 36.6 76 16 178/70 95 Lab Results: Results Past 24 Hours Test 12/27/16 06:15 Range/Units White Blood Count 7.09 4.8-10.8 K/uL Red Blood Count 3.35 4.2-5.4 M/uL Hemoglobin 10.5 12.0-16.0 g/dL Hematocrit 31.8 37-47 % Mean Corpuscular Volume 94.9 80-100 fL Mean Corpuscular Hemoglobin 31.3 25-34 pg Mean Corpuscular Hemoglobin Concent 33.0 32-36 g/dl RDW Standard Deviation 55.9 36.4-46.3 fL RDW Coefficient of Variation 16.1 11.5-14.5 % Platelet Count 220 130-400 K/uL Mean Platelet Volume 9.4 7.4-10.4 fL Activated Partial Thromboplast Time 27.3 21.0-31.0 SECONDS Partial Thromboplastin Ratio 1.1 Sodium Level 143 136-145 mmol/L Potassium Level 3.9 3.5-5.1 mmol/L Chloride Level 111 98-107 mmol/L Carbon Dioxide Level 20 21-32 mmol/L Anion Gap 12.0 3-11 mmol/L Blood Urea Nitrogen 9 7-18 mg/dl Creatinine 1.00 0.60-1.20 mg/dl Est Creatinine Clear Calc Drug Dose 40.2 ml/min Estimated GFR () 59.5 Estimated GFR (Non- 51.3 BUN/Creatinine Ratio 9.5 10-20 Random Glucose 70 70-99 mg/dl Calcium Level 8.5 8.5-10.1 mg/dl Total Bilirubin 1.2 0.2-1 mg/dl Direct Bilirubin 0.6 0-0.2 mg/dl Aspartate Amino Transf (AST/SGOT) 29 15-37 U/L Alanine Aminotransferase (ALT/SGPT) 27 12-78 U/L Alkaline Phosphatase 223 45-117 U/L Total Protein 5.8 6.4-8.2 gm/dl Albumin 2.6 3.4-5.0 gm/dl Globulin 3.2 2.5-4.0 gm/dl Albumin/Globulin Ratio 0.8 0.9-2
[2016-12-27] MEDS ORDERED: MTR500 PO (10:08)
[2016-12-27] MEDS ORDERED: CEFU1TAB35 PO (10:08)
[2016-12-27] MEDS ORDERED: NRV5 PO (10:08)
--- NOTE | 2016-12-27 10:10 | Discharge Instructions ---
Discharge Instructions Date of Service December 27, 2016. Admission Reason for Admission: SVT Discharge Discharge Diagnosis / Problem: 1. SVT S/P Ablation 2. Cholecystitis/ Cholelithiasis/Choledocholithiasis Discharge Goals Goal(s): Diagnostic testing, Therapeutic intervention Activity Recommendations Activity Limitations: per Instructions/Follow-up section (as per antonio's instructions) . Instructions / Follow-Up Instructions / Follow-Up MEDICATION CHANGES: 1. New medication: Cefuroxime 250 mg PO BID x 6 more days to complete course of 10 days of antibiotics 2. New medication: Flagyl 500 mg PO TID x 6 more days to complete course of 10 days of antibiotics 3. New medication: Amlodipine 5 mg daily FOLLOW UP 1. Follow up with PCP in 1 week. Please call to make an appointment 2, Follow up with cardiology in 2 weeks. Please call to make an appointment 3. Follow up with surgery as per their instructions Current Hospital Diet Patient's current hospital diet: AHA Diet (Heart Healthy) Discharge Diet Recommended Diet: AHA Diet (Heart Healthy) (as tolerated), Low Sodium Diet ( 2gm Na) Procedures Procedures Performed: Laparoscopic Cholecystectomy and Endoscopic Retrograde Cholangiopancreato on 12/24/16 Ablation on 12/21/16 Cardiac catheterization on 12/22/16 Pending Studies Studies pending at discharge: no Medical Emergencies . Who to Call and When: Medical Emergencies: If at any time you feel your situation is an emergency, please call 911 immediately. . Non-Emergent Contact Non-Emergency issues call your: Primary Care Provider, Surgeon Call Non-Emergent contact if: temperature is above 101.5 . . "Provider Documentation" section prepared by Marilou Kitchen. . VTE Core Measure Inpt VTE Proph given/why not?: Unfractionated heparin SQ, SCD's
--- NOTE | 2016-12-27 10:16 | Discharge Summary ---
Discharge Summary Date of Service December 27, 2016. Discharge Summary Admission Date: December 20, 2016 at 13:10 Discharge Date: December 27, 2016 Discharge Disposition: Home Principal Diagnosis: 1. SVT s/p ablation 2. Cholelithiasis/Choledocholithiasis/Acute cholecystitis 3. Status post Lap cholecystectomy 4. UBALDO 5. S/P Cardiac catheterization- Severe 2 vessel CAD 6. Hypertension, uncontrolled Secondary Diagnoses/Problems: 1. Hypothyroidism 2. Right kidney lesion Procedures: -S/P SVT Ablation on 12/21/16 -S/P Laparoscopic cholecystectomy on `7 -S/P Cardiac catheterization on 12/22/16- severe 2 vessel CAD -Tele monitoring -ICU monitoring -CXR -CT head -ERCP -MRCP -Abd US -Antibiotics Consultations: Surgery GI Cardiology/EP Pending Studies/Follow-Up: Instructions / Follow-Up Instructions / Follow-Up MEDICATION CHANGES: 1. New medication: Cefuroxime 250 mg PO BID x 6 more days to complete course of 10 days of antibiotics 2. New medication: Flagyl 500 mg PO TID x 6 more days to complete course of 10 days of antibiotics 3. New medication: Amlodipine 5 mg daily FOLLOW UP 1. Follow up with PCP in 1 week. Please call to make an appointment 2, Follow up with cardiology in 2 weeks. Please call to make an appointment 3. Follow up with surgery as per their instructions Medication Reconciliation New Medications: Amlodipine Besylate (Amlodipine Besylate) 5 Mg Tab 5 MG PO DAILY for 30 Days, #30 TAB Cefuroxime Axetil (Cefuroxime Axetil) 500 Mg Tab 500 MG PO BID for 6 Days, #12 TAB Metronidazole (Metronidazole) 500 Mg Tab 500 MG PO TID for 6 Days, #18 TAB Continued Medications: Allopurinol (Zyloprim) 100 Mg Tab 100 MG PO DAILY, TAB Aspirin (Aspirin) 81 Mg Tab 81 MG PO DAILY for 90 Days, #90 TAB 3 Refills Cholecalciferol (Vitamin D3) 2,000 Unit Tab 5000 UNITS PO WK for 30 Days, TAB 5 Refills Cyclosporine (Ophth) (Restasis) 0.05 % Emu 1 DROP OP BID, BTL Hydrochlorothiazide (Hydrochlorothiazide) 25 Mg Tab 25 MG PO DAILY, #90 Metoprolol Tartrate (Metoprolol Tartrate) 75 Mg Tab 75 MG PO BID for 30 Days Pantoprazole (Pantoprazole Sodium) 40 Mg Tab 40 MG PO DAILY, #30 Thyroid ([place] Thyroid) 90 Mg Tab 90 MG PO DAILY, #30 Admission Information HPI (per Admitting provider): 86 year old female who presents to the ER with nausea, vomiting, and palpitations. Patient reports she has been sick for the past month and half. She was admitted to [facility] last month for SVT. She reports her Nadolol was changed to metoprolol. She was also found to have elevated LFTs. She reports she had a "MRI of the abdomen" and "has a gallstone stuck in the duct." She was scheduled to see general surgery today. She reports continued to heart palpitations and pounding every day. She denies chest pain or pressure. No shortness of breath, lightheadedness, dizziness, or syncopal events. Last night she reports she felt chilled and had three episodes of vomiting. She denies hematemesis or coffee ground emesis. She reports some mild epigastric pain from vomiting but reports she otherwise has not had any abdominal pain. She reports the palpitations were severe this morning. She denies diarrhea. She reports she has been sometimes getting nauseous after eating. In the ER, patient was found to be in SVT with HR in the 160s. She was given Adenosine x 2 and metoprolol x 2 with short term improvement in HR. She was seen by Dr. Mcdowell who has placed the patient on an Esmolol drip. HR at the time of my exam is in the 70s. Labs show a transaminitis. WBC normal and patient is afebrile. Physical Exam (per Admitting): General Appearance: no apparent distress Head: normocephalic Eyes: normal inspection ENT: hearing grossly normal Neck: supple, no JVD Respiratory/Chest: lungs clear, normal breath sounds, no respiratory distress Cardiovascular: regular rate, rhythm, no edema, normal peripheral pulses Abdomen/GI: normal bowel sounds, non tender, soft, + tenderness (mild epigastric) Extremities/Musculoskelatal: normal inspection, no calf tenderness Neurologic/Psych: no motor/sensory deficits, alert, normal mood/affect, oriented x 3 Skin: normal color, warm/dry Hospital Course ASSESSMENT & PLAN: SVT : Presented with H/O palpitations since 6 weeks and had nausea, vomiting, palpitations 1 day prior to admission . Admitted at [place] for SVT and BB changed from Nadolol to metoprolol . Found to be in SVT in ED: Treated with adenosine x 2 and metoprolol x 2. and was on esmolol drip -S/P Ablation on 12/21/16. See EP/Cardiology note for details. -Troponin mildly elevated -S/P Cardiac catheterization on 12/22/16: 12/22/16: Severe 2 vessel CAD ( 70-80% focal mid LAD stenosis, 70% ostial circumflex stenosis) -Continue with ASA, Metoprolol 75 mg PO BID. Started Statin -ECHO: EF: 60-65% -Appreciate Cardiology Dr. Mcdowell inputs. 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 She will make appt CHOLELITHIASIS, CHOLEDOCHOLITHIASIS ACUTE CHOLECYSTITIS S/P LAPAROSCOPIC CHOLESYSTECTOMY: On 12/24/16 -11MM stone in CBD on MRI s/p Sphincterotomy and CBD dilatation on 12/24/16 -LFTs went up on 12/25/16 with significant abdominal pain--> likely passed CBD stone--> LFTs trending down -On cefuroxime BID/Flagyl TID- to complete course of 10 days of antibiotics -GI/Surgery on board- both cleared her for discharge. UBALDO : Resolved Cr:1.6 --> 1.4--> 1.00 -IV fluids HEADACHE : Resolved Transient Blurry vision; No focal deficits -CT head: unremarkable HTN : Slightly elevated -Continue metoprolol. Amlodipine 5 mg added during this admission. -HCTZ was held due to elevated creatinine- will re start it on admission -Monitor RIGHT KIDNEY LESION : 1.8 cm systic lesion noted on upper pole of R kidney on MRI -Needs follow up ultrasound as outpatient in 3-6 months -Renal function wnl HYPOTHYROIDISM low TSH ; Normal T3,T4 -Continue Synthroid -Need to repeat thyroid function as outpatient DVT PX -SQ Heparin -SCDs CODE STATUS -Full code DISPOSITION: -Patient doesn't prefer to go to any Rehab/SNF facility, wants to go home and tolerating ambulation very well. -Refusing home health services too as says she has enough support at home -Eager to be discharged -Ok to discharge home today Total time spent on discharge = This includes examination of the patient, discharge planning, medication reconciliation, and communication with other providers. Discharge Instructions Activity Recommendations Activity Limitations: per Instructions/Follow-up section (as per carolinaron's instructions) . Instructions / Follow-Up Instructions / Follow-Up MEDICATION CHANGES: 1. New medication: Cefuroxime 250 mg PO BID x 6 more days to complete course of 10 days of antibiotics 2. New medication: Flagyl 500 mg PO TID x 6 more days to complete course of 10 days of antibiotics 3. New medication: Amlodipine 5 mg daily FOLLOW UP 1. Follow up with PCP in 1 week. Please call to make an appointment 2, Follow up with cardiology in 2 weeks. Please call to make an appointment 3. Follow up with surgery as per their instructions Current Hospital Diet Patient's current hospital diet: AHA Diet (Heart Healthy) Discharge Diet Recommended Diet: AHA Diet (Heart Healthy) (as tolerated), Low Sodium Diet ( 2gm Na) Procedures Procedures Performed: Laparoscopic Cholecystectomy and Endoscopic Retrograde Cholangiopancreato on 12/24/16 Ablation on 12/21/16 Cardiac catheterization on 12/22/16 Pending Studies Studies pending at discharge: no Medical Emergencies . Who to Call and When: Medical Emergencies: If at any time you feel your situation is an emergency, please call 911 immediately. . Non-Emergent Contact Non-Emergency issues call your: Primary Care Provider, Surgeon Call Non-Emergent contact if: temperature is above 101.5 . . "Provider Documentation" section prepared by Marilou Kitchen. . VTE Core Measure Inpt VTE Proph given/why not?: Unfractionated heparin SQ, SCD's
[2016-12-27 10:27] VITALS: BP 163/70; PULSE 69; TEMP 36.5; O2SAT 96
== END 2016-12-27 10:55 | disposition home or self-care (01) | DRG 274 ==
LOC: ENRESERVTM → ENRESERVDT → C.EDB 09:48 → C.MSICU 13:10 → C.2T 12-23 16:38 → EDBEDREQ 12-25 09:58 → EDBEDREQSVC 12-25 09:58 → C.MSW 12-25 11:16 → C.2T 12-25 22:21
PROVIDERS: ADMIT Internal Medicine; ATTEND Internal Medicine
PROC: 02583ZZ Destruction of Conduction Mechanism, Percutaneous Approach (ICD-10-PCS; principal; 2016-12-21 16:17)
PROC: 4A023N7 Measurement of Cardiac Sampling and Pressure, Left Heart, Percutaneous Approach (ICD-10-PCS; 2016-12-22)
PROC: B210YZZ Fluoroscopy of Single Coronary Artery using Other Contrast (ICD-10-PCS; 2016-12-22)
PROC: 0FC98ZZ Extirpation of Matter from Common Bile Duct, Via Natural or Artificial Opening Endoscopic (ICD-10-PCS; 2016-12-24)
PROC: BF10YZZ Fluoroscopy of Bile Ducts using Other Contrast (ICD-10-PCS; 2016-12-24)
PROC: 0F798ZZ Dilation of Common Bile Duct, Via Natural or Artificial Opening Endoscopic (ICD-10-PCS; 2016-12-24)
PROC: 0FT44ZZ Resection of Gallbladder, Percutaneous Endoscopic Approach (ICD-10-PCS; 2016-12-24 10:24)
DX: I47.1 Supraventricular tachycardia (principal); K80.63 Calculus of gallbladder and bile duct with acute cholecystitis with obstruction; I24.8 Other forms of acute ischemic heart disease; N17.9 Acute kidney failure, unspecified; I47.0 Re-entry ventricular arrhythmia; K83.8 Other specified diseases of biliary tract; I11.9 Hypertensive heart disease without heart failure; E83.42 Hypomagnesemia; E87.6 Hypokalemia; I25.10 Atherosclerotic heart disease of native coronary artery without angina pectoris; R51 Headache; H53.8 Other visual disturbances; N28.9 Disorder of kidney and ureter, unspecified; K21.9 Gastro-esophageal reflux disease without esophagitis; E03.9 Hypothyroidism, unspecified; M10.9 Gout, unspecified; Z51.81 Encounter for therapeutic drug level monitoring; Z79.899 Other long term (current) drug therapy; Z79.82 Long term (current) use of aspirin; Z86.718 Personal history of other venous thrombosis and embolism; Z83.3 Family history of diabetes mellitus

== ENCOUNTER 2017-07-25 12:38 | Emergency (ER) | payer OTHER ==
[~2017-07-25] VITALS: Ht 157.5 cm; Wt 84.5 kg
[~2017-07-25 12:38] MED LIST changes: -ACET-1311 PO; -ALL100 PO; +ALLO100T PO; -ASPEC325 PO; +ASPI1TAB83 PO; +CEFU1TAB35 PO; +CHOL20007 PO; -CRG40 PO; +CYCL0.052 OP; +HYDR25TA5 PO; +METO-722 PO; +MTR500 PO; +NRV5 PO; -OXYC-57 PO; -RANITAB33 PO
[2017-07-25 12:46] VITALS: TEMP 37.7
[2017-07-25] MEDS ORDERED: SODIUM CHLORIDE 0.9% 1000ML 1,000 ML IV STA (12:56)
[2017-07-25 13:11] VITALS: O2SAT 98; Ht 157.5 cm; Wt 84.5 kg
[2017-07-25 13:24] LABS: BASO % 0.3 %; BASO ABS # 0.02 K/uL (0-0.2); COMPLETE YES; EOS % 2.4 %; HEMATOCRIT 38.4 % (37-47); IG% 0.1 %; LYMPH % 26.4 %; LYMPH ABS # 2.09 K/uL (1.2-3.4); MEAN CORPUSCULAR HEMOGLOBIN 31.8 pg (25-34); MEAN CORPUSCULAR HGB CONC 32.8 g/dl (32-36); MEAN PLATELET VOLUME 9.5 fL (7.4-10.4); MONO % 6.7 %; NEUT % 64.1 %; PLATELET COUNT 187 K/uL (130-400); RED BLOOD COUNT 3.96 M/uL (4.2-5.4); WHITE BLOOD COUNT 7.93 K/uL (4.8-10.8)
[2017-07-25 13:32] LABS: INR 1.1 (0.9-1.1); PROTHROMBIN TIME (PATIENT) 11.1 SECONDS (9.0-12.0)
[2017-07-25] MEDS ORDERED: PANT40TA PO (13:36)
[2017-07-25] MEDS ORDERED: HYDR25TA5 PO (13:36)
[2017-07-25] MEDS ORDERED: CRS/10 PO (13:36)
[2017-07-25] MEDS ORDERED: CYAN10005 PO (13:36)
[2017-07-25] MEDS ORDERED: NADO80TA PO ×2 (13:36→16:16)
[2017-07-25] MEDS ORDERED: ALL100 PO (13:36)
[2017-07-25] MEDS ORDERED: ERGO50002 PO (13:36)
[2017-07-25] MEDS ORDERED: ELQ25 PO (13:36)
[2017-07-25] MEDS ORDERED: THYR90TA PO (13:36)
[2017-07-25] MEDS ORDERED: ASPI81TA28 PO (13:36)
[2017-07-25 13:42] LABS: BUN/CREATININE RATIO 22.4 (10-20); CALCIUM 8.7 mg/dl (8.5-10.1); CREATININE 1.17 mg/dl (0.60-1.20); MAGNESIUM 1.7 mg/dl (1.8-2.4)
[2017-07-25 13:52] LABS: CKMB/CK RATIO 2.6 (0-3.0); THYROID STIMULATING HORMONE 1.17 uIu/ml (0.300-4.500)
--- NOTE | 2017-07-25 13:57 | DIAGNOSTIC IMAGING REPORT ---
CHEST ONE VIEW PORTABLE CLINICAL HISTORY: Weakness. Atrial fibrillation. COMPARISON STUDY: 12/22/2016 FINDINGS: The heart remains enlarged. There is no failure. There is no lobar consolidation. There is minor basilar atelectasis/scarring. No pleural effusions are visualized. [ IMPRESSION: Stable mild cardiomegaly. Stable basilar atelectasis/scarring. No acute findings. Electronically signed by: Eric Murray M.D. 07/25/2017 1:55 PM Dictated Date/Time: 07/25/2017 1:55 PM
[2017-07-25] MEDS ORDERED: NTRGSL/4 UT (14:13)
[2017-07-25 14:34] LABS: URINE APPEARANCE CLEAR (CLEAR); URINE BILIRUBIN NEG (NEG); URINE COLOR YELLOW; URINE NITRITE NEG (NEG); URINE PH 5.5 (4.5-7.5); UROBILINOGEN NEG (NEG)
[2017-07-25 14:36] LABS: MANUAL MICROSCOPIC REQUIRED? NO; REVIEW REQ? NO
[2017-07-25 16:34] VITALS: BP 148/92; PULSE 88; O2SAT 98
--- NOTE | 2017-07-25 17:22 | Pharmacy Progress Note ---
ED Pharmacist Progress Note Date of Service: Jul 25, 2017. [facility] pharmacy called asking for clarification on Nadolol Rx: per discharge instructions and provider's note: Nadolol 160mg Q AM + 80mg Q PM (not 160mg BID) . Pharmacist accepted order clarification.
--- NOTE | 2017-07-25 21:47 | EMERGENCY ROOM VISIT NOTE ---
History Report prepared by Zackary: Terrie Kemp Under the Supervision of: Dr. Heath Caban M.D. First contact with patient: 12:51 Chief Complaint: CARDIAC ASSESSMENT Stated Complaint: A-FIB History of Present Illness The patient is a 87 year old female who presents to the Emergency Room with complaints of persistent rapid pulse and generalized weakness that began over a week ago. The patient states that she went to her automatic clipper, Dr. Schuyler Gilmore , and was diagnosed with atrial fibrillation. She was put on Eliquis three days ago. The patient contacted her automatic clipper today, noting her atrial fibrillation has not resolved. Her automatic clipper suggested she come to the Emergency Department for further evaluation. The patient has been having shortness of breath, noting it worsens with exertion. She notes that she has been shoulder pain for a really long time now, rating her discomfort a 10 out of 10 in severity. Her shoulder pain causes tingling in her arm occasionally. The patient notes she is hypertensive. Pt denies LOC, headache, fevers, chills, diaphoresis, visual changes, neck pain , chest pain, orthopnea, PND, nausea, vomiting, abdominal pain, back pain, melena, hematochezia, urinary symptoms, numbness, lymphadenopathy, rash, or other complaints. Source of History: patient Onset: few days ago Position: other (global ) Quality: other (rapid pulse and generalized weakness ) Timing: other (persistent ) Associated Symptoms: + SOB, + weakness Review of Systems See HPI for pertinent positives and negatives. A total of ten systems were reviewed and were otherwise negative. Past Medical & Surgical Medical Problems: (1) Cholelithiasis (2) DVT (deep venous thrombosis) (3) Femur fracture, left (4) Gout (5) History of DVT (deep vein thrombosis) (6) HTN (hypertension) (7) Hypertension (8) Hypomagnesemia (9) Hypothyroidism (10) Paroxysmal supraventricular tachycardia (11) Premature atrial contractions Surgical Problems: (1) H/O: hysterectomy Family History Diabetes mellitus FH: lung disease FHx: cancer Social History Smoking Status: Never Smoker Drug Use: none Marital Status: Housing Status: lives with family Current/Historical Medications Scheduled Allopurinol (Allopurinol), 100 MG PO DAILY Apixaban (Eliquis), 2.5 MG PO BID Aspirin (Aspirin Ec), 81 MG PO DAILY Cyanocobalamin (Vitamin B-12), 1,000 MCG PO DAILY Ergocalciferol (Drisdol), 50,000 UNITS PO WK Hydrochlorothiazide (Hydrochlorothiazide), 25 MG PO DAILY Nadolol (Corgard), 80 MG PO BID Nadolol (Corgard), 160 MG PO BID Pantoprazole (Protonix), 40 MG PO DAILY Rosuvastatin Calcium (Crestor), 10 MG PO DAILY Thyroid (Gaylord Thyroid), 90 MG PO DAILY Scheduled PRN Nitroglycerin (Nitrostat), 0.4 MG UT PRN PRN for Chest Pain Allergies Coded Allergies: Atorvastatin (Verified Adverse Reaction, Unknown, unknown, 07/25/17) Diclofenac (Verified Adverse Reaction, Unknown, unknown, 07/25/17) Levofloxacin (Verified Adverse Reaction, Unknown, unknown, 07/25/17) Rofecoxib (Verified Adverse Reaction, Unknown, unknown, 07/25/17) Physical Exam Vital Signs Date Time Temp Pulse Resp B/P (MAP) Pulse Ox O2 Delivery O2 Flow Rate FiO2 07/25/17 16:34 88 16 148/92 98 07/25/17 15:47 84 18 164/115 97 Room Air 07/25/17 15:02 72 16 137/72 97 Room Air 07/25/17 14:05 75 16 147/98 97 Room Air 07/25/17 13:14 96 Room Air 07/25/17 13:13 91 07/25/17 13:11 98 Room Air 07/25/17 13:11 98 Room Air 07/25/17 12:46 37.7 91 18 176/80 97 Room Air Physical Exam GENERAL: Awake, alert, well-appearing, in no distress HENT: Normocephalic, atraumatic. Oropharynx unremarkable. EYES: Normal conjunctiva. Sclera non-icteric. NECK: Supple. No nuchal rigidity. FROM. No JVD. RESPIRATORY: Clear to auscultation. CARDIAC: Regular rate, irregular rhythm. Extremities warm and well perfused. Pulses equal. ABDOMEN: Soft, non-distended. No tenderness to palpation. No rebound or guarding. No masses. RECTAL: Deferred. MUSCULOSKELETAL: Chest examination reveals no tenderness. The back is symmetrical on inspection without obvious abnormality. There is no CVA tenderness to palpation. No joint edema. LOWER EXTREMITIES: Calves are equal size bilaterally and non-tender. No edema. No discoloration. NEURO: Normal sensorium. No sensory or motor deficits noted. SKIN: No rash or jaundice noted. Medical Decision & Procedures ER Provider Diagnostic Interpretation: Radiology results as stated below per my review and radiologist interpretation: CHEST ONE VIEW PORTABLE CLINICAL HISTORY: Weakness. Atrial fibrillation. COMPARISON STUDY: 12/22/2016 FINDINGS: The heart remains enlarged. There is no failure. There is no lobar consolidation. There is minor basilar atelectasis/scarring. No pleural effusions are visualized. [ IMPRESSION: Stable mild cardiomegaly. Stable basilar atelectasis/scarring. No acute findings. Electronically signed by: Eric Murray M.D. 07/25/2017 1:55 PM Laboratory Results 07/25/17 13:10 Red Blood Count 3.96, Mean Corpuscular Volume 97.0, Mean Corpuscular Hemoglobin 31.8, Mean Corpuscular Hemoglobin Concent 32.8, Mean Platelet Volume 9.5, Neutrophils (%) (Auto) 64.1, Lymphocytes (%) (Auto) 26.4, Monocytes (%) (Auto) 6.7, Eosinophils (%) (Auto) 2.4, Basophils (%) (Auto) 0.3, Neutrophils # (Auto) 5.09, Lymphocytes # (Auto) 2.09, Monocytes # (Auto) 0.53, Eosinophils # (Auto) 0.19, Basophils # (Auto) 0.02 07/25/17 13:10 Test 07/25/17 13:10 07/25/17 14:25 White Blood Count 7.93 K/uL (4.8-10.8) Red Blood Count 3.96 M/uL (4.2-5.4) Hemoglobin 12.6 g/dL (12.0-16.0) Hematocrit 38.4 % (37-47) Mean Corpuscular Volume 97.0 fL (80-100) Mean Corpuscular Hemoglobin 31.8 pg (25-34) Mean Corpuscular Hemoglobin Concent 32.8 g/dl (32-36) Platelet Count 187 K/uL (130-400) Mean Platelet Volume 9.5 fL (7.4-10.4) Neutrophils (%) (Auto) 64.1 % Lymphocytes (%) (Auto) 26.4 % Monocytes (%) (Auto) 6.7 % Eosinophils (%) (Auto) 2.4 % Basophils (%) (Auto) 0.3 % Neutrophils # (Auto) 5.09 K/uL (1.4-6.5) Lymphocytes # (Auto) 2.09 K/uL (1.2-3.4) Monocytes # (Auto) 0.53 K/uL (0.11-0.59) Eosinophils # (Auto) 0.19 K/uL (0-0.5) Basophils # (Auto) 0.02 K/uL (0-0.2) RDW Standard Deviation 53.1 fL (36.4-46.3) RDW Coefficient of Variation 14.8 % (11.5-14.5) Immature Granulocyte % (Auto) 0.1 % Immature Granulocyte # (Auto) 0.01 K/uL (0.00-0.02) Prothrombin Time 11.1 SECONDS (9.0-12.0) Prothromb Time International Ratio 1.1 (0.9-1.1) Activated Partial Thromboplast Time 25.0 SECONDS (21.0-31.0) Partial Thromboplastin Ratio 1.0 Anion Gap 5.0 mmol/L (3-11) Est Creatinine Clear Calc Drug Dose 34.8 ml/min Estimated GFR () 48.9 Estimated GFR (Non- 42.2 BUN/Creatinine Ratio 22.4 (10-20) Calcium Level 8.7 mg/dl (8.5-10.1) Magnesium Level 1.7 mg/dl (1.8-2.4) Total Bilirubin 0.7 mg/dl (0.2-1) Direct Bilirubin 0.2 mg/dl (0-0.2) Aspartate Amino Transf (AST/SGOT) 22 U/L (15-37) Alanine Aminotransferase (ALT/SGPT) 18 U/L (12-78) Alkaline Phosphatase 100 U/L (45-117) Total Creatine Kinase 50 U/L (26-192) Creatine Kinase MB 1.3 ng/ml (0.5-3.6) Creatine Kinase MB Ratio 2.6 (0-3.0) Troponin I 0.018 ng/ml (0-0.045) Total Protein 7.5 gm/dl (6.4-8.2) Albumin 3.6 gm/dl (3.4-5.0) Thyroid Stimulating Hormone (TSH) 1.170 uIu/ml (0.300-4.500) Urine Color YELLOW Urine Appearance CLEAR (CLEAR) Urine pH 5.5 (4.5-7.5) Urine Specific [place] 1.020 (1.000-1.030) Urine Protein NEG (NEG) Urine Glucose (UA) NEG (NEG) Urine Ketones NEG (NEG) Urine Occult Blood NEG (NEG) Urine Nitrite NEG (NEG) Urine Bilirubin NEG (NEG) Urine Urobilinogen NEG (NEG) Urine Leukocyte Esterase NEG (NEG) Laboratory results reviewed by me Medications Administered Medications (Trade) Dose Ordered Sig/Yola Route Start Time Stop Time Status Last Admin Dose Admin Sodium Chloride 1,000 ml @ 125 mls/hr Q8H STAT IV 07/25/17 12:56 07/25/17 16:52 DC 07/25/17 13:14 125 MLS/HR ECG Indication: tachycardia, weakness Rate (beats per minute): 92 Rhythm: atrial fibrillation Findings: no acute ischemic change, no ectopy ED Course 1255: The patient was evaluated in room A2. A complete history and physical exam was performed. 1256: Ordered Sodium Chloride 1000ml @ 125 mls/hr IV. 1326: I reevaluated the patient, who was resting comfortably. 1458: Discussed the patient's case with Dr. Valerio [facility]. Dr. Valerio recommended increasing the patient's Nadolol in the morning. He does recommend cardioversion at this time because she has only been on a blood thinner for a week. He noted the preferred time is for her to be on it for 3 weeks. 1529: I reevaluated the patient who was resting comfortably. I discussed the consult and exam findings, the patient verbalized complete understanding and agreement. 1554: I reevaluated the patient. Discussed results and discharge instructions: She verbalized understanding and agreement. The patient is ready for discharge. Medical Decision Triage Nursing notes reviewed. The patient's presentation and history were concerning for generalized weakness and A. fib. Etiologies such as metabolic, infection, hypo/hyperglycemia, electrolyte abnormalities, cardiac sources, intracerebral event, toxicologic, neurologic, as well as others were entertained. The patient was evaluated. Clinically she looked well. She was in atrial fibrillation but was rate controlled. Blood work was obtained. Her laboratory testing was unremarkable. Urinalysis negative. Chest x-ray unremarkable as above. ECG nonischemic. Troponin was negative. She has been taking anticoagulation but for only 9 days. I did consult with Dr. Valerio of cardiology. Since she is rate controlled and doing relatively well and her coronary disease was felt to be high risk for intervention he recommended continued medical management with close follow-up. She is not a candidate for cardioversion at this time as she is stable and is not fully anticoagulated. The risks of the procedure outweigh the benefits at this point in time. I did relay this to the patient and family. They felt very comfortable with the plan and were understanding. Cardiology recommended an increase in her nadolol from 80 mg twice daily to 160 in the morning and 80 in the evening. The patient felt comfortable with this as well. Case management was able to set a follow- up appointment with cardiology once she is in the therapeutic window. If she worsens in any way whatsoever she will be coming back to the emergency department for reevaluation. I gave my usual and customary discussion regarding this issue. By the evaluation outlined above other emergent etiologies such as those listed in the differential, as well as others, were deemed relatively unlikely. The patient was educated about the findings as listed above. All questions were answered and the patient was pleased with the treatment. Return instructions were outlined and the patient was discharged in stable condition. The patient was referred to cardiology for follow-up for a recheck of the current condition. Medication Reconcilliation Current Medication List: was personally reviewed by me Blood Pressure Screening Patient's blood pressure: Elevated blood pressure Blood pressure disposition: Referred to PCP (referred to cardiology) Consults Time Called: [id number] Consulting Physician: Dr.Eaton [facility] Returned Call: [phone] Discussed the patient's case. Dr. Valerio recommended increasing the patient's Nadolo in the morning. He does not have any further recommendations, because the patient has only been on a blood thinner for less than a week, and he's preferred her at least be on it for 3 weeks. Impression Primary Impression: Weakness generalized Additional Impressions: Dyspnea on exertion Atrial fibrillation Scribe Attestation The scribe's documentation has been prepared under my direction and personally reviewed by me in its entirety. I confirm that the note above accurately reflects all work, treatment, procedures, and medical decision making performed by me. Departure Information Dispostion Home / Self-Care Prescriptions Nadolol (CORGARD) 80 Mg Tab 160 MG PO BID for 30 Days, #120 TAB 160mg by mouth every morning and 80mg by mouth every evening. Prov: eHath Caban MD 07/25/17 Referrals Marzena Viveros M.D. (PCP) Forms IMPORTANT VISIT INFORMATION Patient Instructions My [facility] Additional Instructions Follow-up with cardiology as scheduled on August 09 at 9:[address] Sommers. Continue current medications except increase the nadolol to 160 mg in the morning and 80 mg in the evening. Review the package insert for all your medications. This is necessary as important health information is provided for your benefit and current care. It is important to continue the blood thinner, Eliquis as prescribed as this is very important to the treatment of the A. fib and possible cardioversion if deemed necessary by cardiology. Return to the ER for worsening shortness of breath on exertion, weakness, chest pain, difficulty breathing, fevers, vomiting, worsening of your condition, or as needed. Problem Qualifiers
== END 2017-07-25 16:34 | disposition home or self-care (01) ==
LOC: C.EDB 12:39 → C.EDA 16:34
DX: R53.1 Weakness (principal); R06.09 Other forms of dyspnea; I48.91 Unspecified atrial fibrillation; M25.519 Pain in unspecified shoulder; I10 Essential (primary) hypertension; E03.9 Hypothyroidism, unspecified; Z86.718 Personal history of other venous thrombosis and embolism; Z79.82 Long term (current) use of aspirin; Z83.3 Family history of diabetes mellitus; Z83.6 Family history of other diseases of the respiratory system

== ENCOUNTER → 2017-09-27 | Day surgery (SDC) | payer OTHER ==
[~2017-09-27] VITALS: Ht 157.5 cm; Wt 82.0 kg
[~2017-09-27] MED LIST changes: +ALL100 PO; -ALLO100T PO; +AMIO200T4 PO; -ASPI1TAB83 PO; +ASPI81TA28 PO; -CEFU1TAB35 PO; -CHOL20007 PO; +CRS/10 PO; +CYAN10005 PO; -CYCL0.052 OP; +ELQ25 PO; +ERGO50002 PO; +LIDOCAINE HCL 2% 2 ML VIAL (20MG/ML) ONE; -METO-722 PO; -MTR500 PO; +NADO80TA PO; -NRV5 PO; +NTRGSL/4 UT; +PANT40TA PO; -PANT40TA2 PO; +PROPOFOL IV EMULSION 10 MG/ML 20 ML VIAL IV ONE
[2017-09-27 07:12] VITALS: BP 196/88; PULSE 71; TEMP 36.7; O2SAT 99; Ht 157.5 cm; Wt 82.0 kg
--- NOTE | 2017-09-27 07:36 | History & Physical Bridge Note ---
H&P Re-Evaluation Bridge Note: I have examined the patient, reviewed the History & Physical and in the interval since the performance of the History & Physical I have noted the following changes of clinical significance: Still in AF No changes noted
[2017-09-27 07:39] VITALS: BP 176/98; PULSE 53; O2SAT 98
[2017-09-27 07:40] VITALS: BP 147/87; PULSE 52; O2SAT 99
[2017-09-27 07:42] VITALS: BP 148/57; PULSE 49; O2SAT 99
[2017-09-27 07:44] VITALS: BP 142/48; PULSE 48; O2SAT 99
--- NOTE | 2017-09-27 07:47 | Discharge Instructions ---
Discharge Instructions Procedure Procedure Date: Sep 27, 2017. Reason for Visit: Afib W/Anesthesia, *Nikunj To Do*. Discharge Discharge Date: Sep 27, 2017. Discharge Diagnosis: Atrial fibrillation Last Recorded Wt (Kilograms): 82 Anesthesia Post Anesthesia Instructions: If you have had General Anesthesia or IV Sedation: * Do not drive today. * Resume driving when surgeon permits. * Do not make important decisions or sign legal documents today. * Call surgeon for: 1. Temperature elevations greater than 101 degrees F. 2. Uncontrollable pain. 3. Excessive bleeding. 4. Persistent nausea and vomiting. 5. Medication intolerance (nausea, vomiting or rash). * For nausea and vomiting use only clear liquids such as: tea, soda, bouillon until nausea subsides, then gradually increase diet as tolerated. * If you have any concerns or questions, call your surgeon's office. If physician is unavailable and it is an emergency, call 911 or go to the nearest emergency room. Instructions Activity Recommendations: driving or machine use limit Return to School/Work: with the following limitations Recommended Home Diet: resume previous diet Allergies: Coded Allergies: Atorvastatin (Verified Adverse Reaction, Unknown, unknown, 07/25/17) Diclofenac (Verified Adverse Reaction, Unknown, unknown, 07/25/17) Levofloxacin (Verified Adverse Reaction, Unknown, unknown, 07/25/17) Rofecoxib (Verified Adverse Reaction, Unknown, unknown, 07/25/17) Provider Instructions No driving for 24 hours Follow Up Veronica Henao Recommendations: Call your doctor if: * Temperature above 101 degrees * Pain not relieved by pain medicine ordered * There is increased drainage or redness from any incision * You have any unanswered questions or concerns. Your Doctors Instructions noted above were prepared by provider Tom Calvin. Patient Signature Section: Patient Instructions Signature Page Geena Espinosa Patient (or Guardian) Signature/Date: I have read and understand the instructions given to me by my caregivers. Caregiver/RN/Doctor Signature/Date: The above-named patient and/or guardian has received patient instructions on this date. + Original Patient Signature Page (only) stays with chart. Please make copy for patient.
--- NOTE | 2017-09-27 07:48 | [facility] Operative Report ---
Operative Report Date of Service Sep 27, 2017. Operative Report Procedure performed: Cardioversion Indication: Atrial fibrillation Staff silk blocker: Loki Calvin MD Procedure in detail: The patient was informed of the risks benefits and alternatives to the intended procedure. He understood such which proceed. He was taken to the cardiac catheterization suite holding area. A general anesthetic was administered by the Anesthesiology Service. Once appropriately anesthetized attempted cardioversion was performed using 200 joules delivered in a biphasic fashion. This was unsuccessful. The patient was subsequently cardioverted using 360 joules delivered in a biphasic fashion. This returned the patient to sinus rhythm. The patient tolerated procedure well, there were no immediate complications. Patient was neurologically intact subsequent to the procedure. Impression: Successful cardioversion from atrial fibrillation to normal sinus rhythm I attest to the content of the Intraoperative Record and any orders documented therein. Any exceptions are noted below.
--- NOTE | 2017-09-27 08:05 | Anesthesiology Progress Note ---
Anesthesia Post Op Note Date & Time Sep 27, 2017 at 08:05 Vital Signs Pain Intensity: 0 Vital Signs Past 12 Hours Date Time Temp Pulse Resp B/P (MAP) Pulse Ox O2 Delivery O2 Flow Rate FiO2 09/27/17 07:59 47 16 141/58 (85) 96 Room Air 09/27/17 07:54 47 16 134/54 (80) 96 Nasal Cannula 09/27/17 07:49 47 16 130/53 (78) 96 Nasal Cannula 09/27/17 07:44 48 16 142/48 99 Nasal Cannula 6 09/27/17 07:44 47 16 126/55 (78) 96 Nasal Cannula 09/27/17 07:42 49 16 148/57 99 Nasal Cannula 6 09/27/17 07:40 52 16 147/87 99 Nasal Cannula 6 09/27/17 07:39 53 16 176/98 98 Nasal Cannula 6 09/27/17 07:12 36.7 71 16 196/88 (124) 99 Room Air Notes Mental Status: alert / awake / arousable, participated in evaluation Pt Amnestic to Procedure: Yes Nausea / Vomiting: adequately controlled Pain: adequately controlled Airway Patency, RR, SpO2: stable & adequate BP & HR: stable & adequate Hydration State: stable & adequate Anesthetic Complications: no major complications apparent
[2017-09-27 08:20] VITALS: BP 148/58; PULSE 46; O2SAT 96
== END | disposition home or self-care (01) ==
LOC: C.CATH 06:38
PROVIDERS: ATTEND Internal Medicine Clinical Cardiac Electrophysiology
DX: I48.91 Unspecified atrial fibrillation (principal); I48.92 Unspecified atrial flutter; I25.10 Atherosclerotic heart disease of native coronary artery without angina pectoris; I10 Essential (primary) hypertension; E78.5 Hyperlipidemia, unspecified; E03.9 Hypothyroidism, unspecified; I34.0 Nonrheumatic mitral (valve) insufficiency; E55.9 Vitamin D deficiency, unspecified; Z79.01 Long term (current) use of anticoagulants; Z87.39 Personal history of other diseases of the musculoskeletal system and connective tissue; Z90.710 Acquired absence of both cervix and uterus; Z90.49 Acquired absence of other specified parts of digestive tract; Z82.3 Family history of stroke; Z83.3 Family history of diabetes mellitus; Z82.49 Family history of ischemic heart disease and other diseases of the circulatory system

== ENCOUNTER 2018-10-24 08:55 | Observation (INO) ==
[2018-10-24] MEDS ORDERED: NITROGLYCERIN SL 0.4 MG/TAB TAB SL PRN (09:29)
[2018-10-24] MEDS ORDERED: ASPIRIN CHEW 324 MG PO STA (09:29)
[2018-10-24 09:53] LABS: Basophils # (auto) 0.03 K/uL (0-0.2); Basophils % (auto) 0.4 %; Eosinophils # (auto) 0.12 K/uL (0-0.5); Eosinophils % (auto) 1.7 %; Hematocrit (blood only) 36.8 % (37-47); Hemoglobin 12.2 g/dL (12.0-16.0); Immature Granulocytes # (auto) 0.01 K/uL (0.00-0.02); Immature Granulocytes % (auto) 0.1 %; Lymphocytes # (auto) 1.64 K/uL (1.2-3.4); Lymphocytes % (auto) 23.1 %; Mean Corpuscular Hgb Conc 33.2 g/dL (32-36); Mean Corpuscular Volume 95.8 fL (80-100); Monocytes # (auto) 0.48 K/uL (0.11-0.59); Monocytes % (auto) 6.8 %; Neutrophils # (auto) 4.82 K/uL (1.4-6.5); Neutrophils % (auto) 67.9 %; Platelet Count 225 K/uL (130-400); RDW Coefficient of Variation 15.8 % (11.5-14.5); Red Blood Count 3.84 M/uL (4.2-5.4)
[2018-10-24 10:05] LABS: INR 1.1 (0.9-1.1); Partial Thromboplastin Ratio 0.9; Partial Thromboplastin Time 24.5 Seconds (21.0-31.0); Prothrombin Time 11.1 Seconds (9.0-12.0)
--- NOTE | 2018-10-24 10:07 | XRay Report ---
XR chest 1V portable CLINICAL HISTORY: chest pain COMPARISON STUDY: Chest radiograph October 18, 2018. FINDINGS: There is no pneumothorax or pleural effusion. Note is made of moderate cardiomegaly without evidence for pulmonary edema. There is no consolidation to suggest pneumonia. The appearance of the chest is unchanged. IMPRESSION: Moderate cardiomegaly. No acute cardiopulmonary findings. Electronically signed by: Forrest Brandon M.D. 10/24/2018 10:06 AM
[2018-10-24 10:09] LABS: Alanine Aminotransferase 13 U/L (12-78); Albumin Level 3.4 gm/dl (3.4-5.0); Aspartate Aminotransferase 14 U/L (15-37); BUN Creatinine Ratio 18.5 (10-20); Blood Urea Nitrogen 26 mg/dl (7-18); Calcium 8.6 mg/dl (8.5-10.1); Carbon Dioxide 29 mmol/L (21-32); Chloride 104 mmol/L (98-107); Est GFR (African American) 38.1; Est GFR (Non-African American) 32.8; Glucose 114 mg/dl (70-99); Potassium 4.1 mmol/L (3.5-5.1); Sodium 138 mmol/L (136-145)
[2018-10-24 10:14] LABS: Albumin Globulin Ratio 0.9 (0.9-2); Alkaline Phosphatase 107 U/L (45-117); Bilirubin,Total 0.6 mg/dl (0.2-1); Globulin 3.9 gm/dl (2.5-4.0); Total Protein 7.3 gm/dl (6.4-8.2); Troponin I < 0.015 ng/ml (0-0.045)
--- NOTE | 2018-10-24 12:28 | History & Physical Report ---
Date of Service October 24, 2018 Assessment & Plan (1) Atypical chest pain: This is a 88 year old female with significant PMH of chronic afib on eliquis, CAD, HTN, hypothyroidism, hx of DVT, GERD, Gout who presents to [facility] with chest heaviness x 1 day. Last seen in [facility] ED 10/18/18 secondary to similar sx. Troponin negative x 2. Last had cardiac cath 2017 severe 2 vessel CAD. ? for intervention vs medical management. Pt preferred medical management; therefore she was discharged home on ranexa. She did not tolerate Ranexa and chest pain recurred this morning. So far work up in ED is negative for acute acs, troponin negative, ecg unchanged, cxr cardiomegaly but otherwise negative, bun/cr 26 and 1.43 Patient has been significantly hypertensive since arrival and throughout last ER visit. She does not check BP at home but states at an appointment yesterday was 132/78. She is compliant with medications. -admit to med/surg telemetry -consult [facility] Cardiology -trend troponin q6h and cycle ecg -nitro paste 1in q6hr for HTN and chest pain -obtain adequate BP control as this could be contributing to recurrent chest pain along with severe documented CAD -Lipid panel and A1C in a.m. -appreciate cardiology recommendations (2) HTN (hypertension): -blood pressure elevated -treated with nadolol, HCTZ as outpatient -monitor closely, if continues to remain elevated may need to add additional agent in amlodipine or ARB (3) CAD (coronary artery disease): -patient with severe 2 vessel disease, last cath 12/2016 revealed: Severe 2 vessel CAD ( 70-80% focal mid LAD stenosis, 70% ostial circumflex stenosis) -on ASA and nadolol, allergy to atorvastatin -apply nitro paste 1in q6hr -appreciate cardiology recommendations (4) Atrial fibrillation: -rate controlled with nadolol -on eliquis for thrombotic control (5) CKD (chronic kidney disease) stage 3, GFR 30-59 ml/min: -baseline Cr 1.3-1.4 -Bun/Cr today stable at 26/1.43, follow (6) Hypothyroidism: -continue armour thyroid -TSH 10/18/18 2.3 (7) GERD (gastroesophageal reflux disease): -continue PPI (8) DVT prophylaxis: -continue apixban -pt with history of provoked DVT in past Disposition: to be determined Follow up: PCP Dr. Viveros upon discharge as well as appropriate follow up with cardiology as indicated Patient was seen and examined in collaboration with Dr. Miranda, please see addendum Starting 10/25/18 patient will be under the care of Dr. Brady History of Present Illness Chief Complaint: Chest pain x 1 day. Primary Care Provider: Marzena Viveros MD This is a 88 year old female with significant pmh of chronic afib on eliquis, CAD, HTN, hypothyroidism, hx of DVT, GERD, Gout who presents to [facility] with chest heaviness x 1 day. Pt recently seen in ED 10/18/18 due to similar symptoms, chest heaviness that radiated to LUE with numbness and tingling. Troponin were negative x 2. Sx improved with nitro. Cardiology contacted which recommended medication management with ranexa vs stress test and cath. Pt last had cath 12/2016 which revealed severe 2 vessel CAD. It was felt pt may benefit best from medical management vs high risk PCI intervention as patient didn't want a cardiac cath. She was discharged to home with ranexa, took 3 doses but did not tolerate. [place] made her dizzy and weak so she stopped. She had been feeling well up until last evening when she developed substernal chest heaviness that was constant, but this time did not radiate to L arm. Otherwise felt similar. Associated with AGEE. Sx waxed and waned in severity and was alleviated with nitro. Was not affected my meals or movement. When she woke up this morning symptoms still present and opted to present to ED. Currently she denies f/c/s, dizziness, lightheaded, cough, URI sx, sob at rest, n/v/d, change in bowel or bladder habits. No weight loss or weight gain. Appetite has been good. She doesn't monitor her bp at home, but was in doctor office yesterday and it was 132/78. Daughter is at bedside. Allergies Allergy/AdvReac Type Severity Reaction Status Date / Time atorvastatin AdvReac Unknown unknown Verified 10/24/18 11:12 capsaicin AdvReac Unknown unknown Verified 10/24/18 11:12 diclofenac AdvReac Unknown unknown Verified 10/24/18 11:12 Diclopak AdvReac Unknown unknown Verified 07/25/17 13:30 levofloxacin AdvReac Unknown unknown Verified 10/24/18 11:12 rofecoxib AdvReac Unknown unknown Verified 10/24/18 11:12 Home Medications Home Medications Medication Instructions Recorded Confirmed Type allopurinol 100 mg PO DAILY 10/18/18 10/24/18 History apixaban [Eliquis] 2.5 mg PO BID 10/18/18 10/24/18 History aspirin [Aspirin Low Dose] 81 mg PO DAILY 10/18/18 10/24/18 History hydrochlorothiazide 25 mg PO DAILY 10/18/18 10/24/18 History nadolol 40 mg PO BID 10/18/18 10/24/18 History nitroglycerin 0.4 mg SUBLINGUAL DIRECTED 10/18/18 10/24/18 History pantoprazole 40 mg PO DAILY 10/18/18 10/24/18 History thyroid (pork) [[place] Thyroid] 90 mg PO DAILY 10/18/18 10/24/18 History vit C,V-Tm-uvvhm-lutein-zeaxan 1 tab PO AMPM 10/24/18 10/24/18 History [PreserVision AREDS-2] Past Med/Surg History Medical History History of PSVT (paroxysmal supraventricular tachycardia) s/p ablation 12/2016 CAD (coronary artery disease) S/P Cardiac catheterization on 12/22/16: 12/22/16: Severe 2 vessel CAD ( 70-80% focal mid LAD stenosis, 70% ostial circumflex stenosis) Gout (Chronic) GERD (gastroesophageal reflux disease) (Chronic) HTN (hypertension) (Chronic) Hypothyroidism (Chronic) Atrial fibrillation (Acute) History of DVT (deep vein thrombosis) (Resolved) Premature atrial contractions (Chronic) Surgical History 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 History of cholecystectomy (Chronic) History of appendectomy (Chronic) History of cardiac cath (Chronic) Femur fracture, left (Chronic) "s/p repair" H/O: hysterectomy (Chronic) Family History Other Family history non-contributory Social History Preferred Language: [place] Communication Ability: Effective Beliefs That Will Affect Care: None marital status: Current Living Situation: Spouse Other Information That Helps Us Care for You: No Feels Safe at Home: Yes Safety Concerns: Feels Safe At This Time Smoking Status: Never smoker Hx Alcohol Use: No Hx Substance Use: No Review of Systems All systems reviewed & are unremarkable except as noted in HPI & below Physical Exam Vital Signs (Past 24 Hours): Last Vital Signs Temp 36.8 C 10/24/18 08:59 Pulse 79 10/24/18 08:59 Resp 18 10/24/18 08:59 BP 156/96 H 10/24/18 08:59 Pulse Ox 95 10/24/18 09:29 Physical Exam: Gen: WD/WN, F, appears younger than stated age, NAD, sitting up in bed, pleasant, conversing easily Head: Normocephalic, Atraumatic Eyes: Sclera normal, no conjunctival injection, PERRLA, EOMI ENT: +hearing assist device bilaterally, normal pharynx, mucous membranes moist, + dentures Neck: supple, no adenopathy, No JVD, no bruit, Resp: Clear to auscultation b/l, no wheeze, rales, rhonchi. Normal insp/exp effort, no accessory muscle use CV: Regular rate, regular rhythm, no murmur, rub, gallop, or ectopy Abd: +BS x 4, soft, nontender, nondistended Musculoskeletal: moves extremities active rom x 4, strength intact, good district engineer strength Extremities: No edema bilaterally Skin: warm, moist, no rash, negative turgor, cap refill < 2sec Neuro: Alert and oriented x 3, speech normal, good mood/affect, cran nerve 2-12 intact grossly : deferred Results & Data Laboratory Results Short CBC 10/24/18 Range/Units 09:40 WBC 7.10 (4.8-10.8) K/uL Hgb 12.2 (12.0-16.0) g/dL Hct 36.8 L (37-47) % Plt Count 225 (130-400) K/uL BMP 10/24/18 09:40 Sodium 138 Potassium 4.1 Chloride 104 Carbon Dioxide 29 BUN 26 H Creatinine 1.43 H Glucose 114 H Calcium 8.6 Cardiac Enzymes 10/24/18 Range/Units 09:40 Troponin I < 0.015 (0-0.045) ng/ml Liver Function 10/24/18 Range/Units 09:40 Total Bilirubin 0.6 (0.2-1) mg/dl AST 14 L (15-37) U/L ALT 13 (12-78) U/L Alkaline Phosphatase 107 (45-117) U/L Albumin 3.4 (3.4-5.0) gm/dl Diagnostic Findings CXR: IMPRESSION: Moderate cardiomegaly. No acute cardiopulmonary findings. Medications Administered Nitroglycerin (Nitrostat) 0.4 mg SL UD PRN PRN Reason: Chest Pain Stop: 11/23/18 09:28 Last Admin: 10/24/18 09:51 Dose: 0.4 mg Documented by: [id number] Discontinued Medications Aspirin (Aspirin) 324 mg PO NOW STA Stop: 10/24/18 09:30 Last Admin: 10/24/18 09:51 Dose: 324 mg Documented by: [id number] ECG Rate (beats per minute): 83bpm Rhythm: atrial fibrillation Additional Comments: QTC 434ms Code Status & VTE Plan Code Status Full Code VTE Prophylaxis Plan VTE Prophylaxis will be ordered: Yes Supervising Physician Co-Signing Physician Notes Care coordinated with Melissa Lewis PA-C. Agree with able note. Patient seen and examined. Please refer to her notes for full details. Vital signs reviewed. Physical exam: General exam: Alert and oriented. Not in acute distress. CVS: S1 and S2 heard, irregular rhythm, no murmurs. RS: Clear to auscultation, no wheezing or crackles. ABD: Soft, bowel sounds present, non tender, no distention. PRINCIPAL PLANNER: Nonfocal. EXT: No edema, no erythema. Labs: Reviewed. Assessment and plan:88F with hx of CAd Hx of SVT s/p ablation in december 2016, hx of symptomatic a fib s/p cardioversion in sep 2017. Hx of cardiac cath showing two vessel disease thought to be difficult intervention with recommendation of medical management, cardiac cath and stent intervention in [facility] or CABG and currently on medical management and who lives with her comes with chest pain. 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 But patient did not tolerated Ranexa and stopped taking it. Comes with chest pain in middle of the chest since last night. Relieved by nitro. Currently resting comfortably and hemodynamically stable. Chest pain hx of two vessel disease and on medical management will monitor in tele serial ce and echo consult cardiology for further recommendation HTN home meds elevated added nitro paste will monitor. Other diagnosis and plan of care as per Melissa henderson MD. (1) CAD (coronary artery disease) Associated angina: with stable angina Coronary Disease-Associated Artery/Lesion type: [place] artery [place] vs. transplanted heart: [place] heart Qualified Code(s): I25.118 - Atherosclerotic heart disease of [place] coronary artery with other forms of angina pectoris (2) Atrial fibrillation Atrial fibrillation type: chronic Qualified Code(s): I48.2 - Chronic atrial fibrillation (3) Hypothyroidism Hypothyroidism type: unspecified Qualified Code(s): E03.9 - Hypothyroidism, unspecified (4) GERD (gastroesophageal reflux disease) Esophagitis presence: without esophagitis Qualified Code(s): K21.9 - Gastro- esophageal reflux disease without esophagitis (5) HTN (hypertension) Hypertension type: essential hypertension Qualified Code(s): I10 - Essential (primary) hypertension
[2018-10-24] MEDS ORDERED: NITROGLYCERIN 2% OINTMENT 30GM TUBE ONE (13:14)
[2018-10-24] MEDS ORDERED: ALUMINUM/MAGNESIUM SUSP 30 ML UDC PO PRN (14:54)
[2018-10-24] MEDS ORDERED: POLYETHYLENE (MIRALAX) 17 GM PACK PO PRN (14:54)
[2018-10-24] MEDS ORDERED: ONDANSETRON INJ 2 MG/ML 2 ML VIAL IV PRN (14:54)
[2018-10-24] MEDS ORDERED: ACETAMINOPHEN 325 MG TAB PO PRN (14:54)
[2018-10-24] MEDS ORDERED: MAGNESIUM HYDROXIDE SUSP 30 ML UDC PO PRN (14:54)
--- NOTE | 2018-10-24 15:36 | Cardiology Consultation ---
Date of Consultation October 24, 2018 Assessment & Plan (1) Chest pain, precordial: She has very atypical chest discomfort, it is very difficult to understand the nature of her discomfort. She often ties it in with her legs being exhausted when she walks, and then she gets short of breath, but she is also clear that she will get it more in the evening, that it will not always occur with activity and that it is not continuous but it is not necessarily brief either. It does not sound like angina. It could be something odd like pericarditis but we do not know much evidence for that, I think I will order a sed rate though. She has no pericardial effusion. It is possible it is a very odd symptom of atrial fibrillation which she notes recently recurred. (2) A-fib: She has atrial fibrillation and she had cardioversion a year ago, she reports that she felt great and her rhythm was stable until about 2 weeks ago when she noted that her pulse was irregular. Her current symptoms have occurred since then, with this is a coincidence or if it is related to her atrial fibrillation I am not sure. Since she remained in sinus rhythm for over a year following her last cardioversion my inclination would be to convert her again and see if this takes care of her symptoms. I do have this arranged for tomorrow morning. I will arrange anesthesia. I discussed the indications, procedure, risks and alternatives of cardioversion with her and she understands and agrees to proceed. Consent obtained. (3) CAD (coronary artery disease): She has known coronary artery disease, however it is very unlikely that she has symptoms related to it. Her current symptoms do not sound anginal, her troponins have been totally normal and she has no acute changes on her electrocardiogram. We could do stress testing but it may not yield much useful information. I would like to do the cardioversion and if her symptoms remain we can consider stress testing. History of Present Illness Reason for Consultation: Chest discomfort, coronary artery disease Attending Physician: Jacob Brady MD History of Present Illness This is a 88-year-old woman who has a history of SVT for which we performed ablation here on December 21, 2016, afterwards she had some electric cardiographic abnormalities and some shortness of breath and catheterization showed two-vessel coronary artery disease including LAD and circumflex. Revascularization was felt to be risky. Her left ventricular function was normal at the time. Subsequently she had a Holter monitor showing atrial fibrillation for which she was treated with Eliquis. She continued to have difficulty with exertion and fatigue felt likely to be due to her atrial fibrillation, therefore cardioversion was performed on September 27, 2017. She has not been seen in our office since. She presented with chest discomfort starting on the morning of October 18, 2018, she was ruled out for infarction with 3- troponins and consideration was given for stress testing, however given that she had disease which would probably have to be treated elsewhere rather than here she was sent home with the addition of Ranexa. She now returns with recurrent chest discomfort and is quite hypertensive. Her symptoms are difficult to evaluate. They have occurred over the last week or so, she also reports that her legs get very heavy, as though someone strapped to wait on to them, and she has difficulty walking because of this. This somehow is related to some shortness of breath as well. The chest discomfort is not strictly exertional, it lasts for prolonged periods of time although it may wax and wane somewhat. It is a somewhat vague sensation that she has. She does not feel that Ranexa helped at all and did not tolerate it. Allergies Allergy/AdvReac Type Severity Reaction Status Date / Time atorvastatin AdvReac Unknown unknown Verified 10/24/18 11:12 capsaicin AdvReac Unknown unknown Verified 10/24/18 11:12 diclofenac AdvReac Unknown unknown Verified 10/24/18 11:12 Diclopak AdvReac Unknown unknown Verified 07/25/17 13:30 levofloxacin AdvReac Unknown unknown Verified 10/24/18 11:12 rofecoxib AdvReac Unknown unknown Verified 10/24/18 11:12 Home Medications Home Medications Medication Instructions Recorded Confirmed Type allopurinol 100 mg PO DAILY 10/18/18 10/24/18 History apixaban [Eliquis] 2.5 mg PO BID 10/18/18 10/24/18 History aspirin [Aspirin Low Dose] 81 mg PO DAILY 10/18/18 10/24/18 History hydrochlorothiazide 25 mg PO DAILY 10/18/18 10/24/18 History nadolol 40 mg PO BID 10/18/18 10/24/18 History nitroglycerin 0.4 mg SUBLINGUAL DIRECTED 10/18/18 10/24/18 History pantoprazole 40 mg PO DAILY 10/18/18 10/24/18 History thyroid (pork) [[place] Thyroid] 90 mg PO DAILY 10/18/18 10/24/18 History vit C,E-Wj-ztmtu-lutein-zeaxan 1 tab PO AMPM 10/24/18 10/24/18 History [PreserVision AREDS-2] Patient History Medical History History of PSVT (paroxysmal supraventricular tachycardia) s/p ablation 12/2016 CAD (coronary artery disease) S/P Cardiac catheterization on 12/22/16: 12/22/16: Severe 2 vessel CAD ( 70-80% focal mid LAD stenosis, 70% ostial circumflex stenosis) Gout (Chronic) GERD (gastroesophageal reflux disease) (Chronic) HTN (hypertension) (Chronic) Hypothyroidism (Chronic) Atrial fibrillation (Acute) History of DVT (deep vein thrombosis) (Resolved) Premature atrial contractions (Chronic) Surgical History 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 History of cholecystectomy (Chronic) History of appendectomy (Chronic) History of cardiac cath (Chronic) Femur fracture, left (Chronic) "s/p repair" H/O: hysterectomy (Chronic) Family History Other Family history non-contributory Social History Preferred Language: [place] Communication Ability: Effective Beliefs That Will Affect Care: None marital status: Current Living Situation: Spouse Other Information That Helps Us Care for You: No Feels Safe at Home: Yes Safety Concerns: Feels Safe At This Time Smoking Status: Never smoker Hx Alcohol Use: No Hx Substance Use: No Physical Exam Vital Signs (Past 24 Hours): Last Vital Signs Temp 36.5 C 10/24/18 15:24 Pulse 84 10/24/18 15:24 Resp 18 10/24/18 15:24 BP 144/72 H 10/24/18 15:24 Pulse Ox 96 10/24/18 15:24 Physical Exam: Constitutional: Alert, cooperative and in no distress. HEENT: Unremarkable Neck: No jugular venous distention, carotid pulses are irregular but otherwise normal and equal bilaterally without bruits. Pulmonary: Clear to auscultation bilaterally. Cardiac: Irregular rhythm with no murmur, gallop or rub. Abdomen: Soft, nontender with normal bowel sounds. Extremities: No edema. Distal pulses intact. Neurologic: No focal findings. Gait is steady. Skin: No rash, ecchymoses or petechiae. Results & Data Diagnostic Findings A chest x-ray done on arrival shows no significant abnormality. On electrocardiography her presenting rhythm is atrial fibrillation with a heart rate of 86 bpm, no acute changes. This was repeated about 2 hours later and is virtually unchanged. An echocardiogram done shortly after admission shows normal left ventricular size with normal left ventricular function and normal left ventricular wall thickness. No regional wall motion abnormalities. (1) A-fib Atrial fibrillation type: persistent Qualified Code(s): I48.1 - Persistent atrial fibrillation (2) CAD (coronary artery disease) Coronary Disease-Associated Artery/Lesion type: [place] artery [place] vs. transplanted heart: [place] heart Associated angina: with stable angina Qualified Code(s): I25.118 - Atherosclerotic heart disease of [place] coronary artery with other forms of angina pectoris
--- NOTE | 2018-10-24 16:17 | Emergency Department Note ---
Entered by Marzena Louie acting as a scribe for History of Present Illness General Chief complaint: Cardiac Assessment Stated complaint: CHEST PAIN HARD TO BREATH Time Seen by Provider: 10/24/18 09:31 Source: patient History of Present Illness Provider complaint: chest pain Onset (ago): day(s) (this morning) Location: chest Severity: similar to prior episodes Pain Consistency: + other (persistent) Maximum Pain Intensity: 6 Quality: + other (heaviness) Relieved By: + medication (nitroglycerin) Associated symptoms: + other (tingling in left arm, legs feel heavy. Denies: pain with breathing) Treatments prior to arrival: other (nitroglycerin, baby aspirin) The patient is a 88 year old female who presents to the Emergency Room with complaints of persistent chest pain beginning this morning. She describes the pain as a heaviness, and rates it as a 6/10 in severity. The patient denies pain with breathing. She notes tingling in her left arm. The patient states her legs feel heavy. She reports she took nitroglycerin, which relieved her pain slightly. The patient states she takes 1 baby aspirin daily. She notes she had similar symptoms 6 days ago, and was seen in the ED, where she was put on Ranexa. She notes this medication was stopped after a few days as it made her feel weak in the knees, lighteaded, unsteady on her feet, and as though her chest was heavy. She sees Dr. Viveros as her PCP. Home Medications Home Medications Medication Instructions Recorded Confirmed Type allopurinol 100 mg PO DAILY 10/18/18 10/24/18 History apixaban [Eliquis] 2.5 mg PO BID 10/18/18 10/24/18 History aspirin [Aspirin Low Dose] 81 mg PO DAILY 10/18/18 10/24/18 History hydrochlorothiazide 25 mg PO DAILY 10/18/18 10/24/18 History nadolol 40 mg PO BID 10/18/18 10/24/18 History nitroglycerin 0.4 mg SUBLINGUAL DIRECTED 10/18/18 10/24/18 History pantoprazole 40 mg PO DAILY 10/18/18 10/24/18 History thyroid (pork) [[place] Thyroid] 90 mg PO DAILY 10/18/18 10/24/18 History vit C,M-Xu-juzql-lutein-zeaxan 1 tab PO AMPM 10/24/18 10/24/18 History [PreserVision AREDS-2] Allergies Allergy/AdvReac Type Severity Reaction Status Date / Time atorvastatin AdvReac Unknown unknown Verified 10/24/18 11:12 capsaicin AdvReac Unknown unknown Verified 10/24/18 11:12 diclofenac AdvReac Unknown unknown Verified 10/24/18 11:12 Diclopak AdvReac Unknown unknown Verified 07/25/17 13:30 levofloxacin AdvReac Unknown unknown Verified 10/24/18 11:12 rofecoxib AdvReac Unknown unknown Verified 10/24/18 11:12 Past Med/Surg History Social History Preferred Language: [place] Citizen Communication Ability: Effective Beliefs That Will Affect Care: None marital status: Current Living Situation: Spouse Other Information That Helps Us Care for You: No Feels Safe at Home: Yes Safety Concerns: Feels Safe At This Time Smoking Status: Never smoker Hx Alcohol Use: No Hx Substance Use: No Review of Systems See HPI for pertinent positives & negatives. and A total of 10 systems reviewed and were otherwise negative Physical Exam Vital Signs Vital Signs - 24 hr 10/24/18 08:59 10/24/18 09:14 10/24/18 09:17 Temperature 36.8 C Temperature Source Oral Sepsis Recent Fever Within 48 Hours No Sepsis New/Unexplained Change in Mental Status No Sepsis Action Taken by Nursing No Action Required Pulse Rate 79 77 84 Pulse Rate [Apical] Pulse Rate from SpO2 Sensor Pulse Rhythm Regular Pulse Rhythm [Apical] Pulse Strength Normal Pulse Strength [Apical] Respiratory Rate 18 25 H 26 H Respiratory Effort / Characteristics Non-Labored Spontaneous Respiratory Depth Normal Respiratory Pattern Regular Blood Pressure 156/96 H 175/92 H Blood Pressure [Left Arm] Blood Pressure Mean 116 119 Blood Pressure Mean [Left Arm] Blood Pressure Position [Left Arm] Pulse Oximetry 95 Oxygen Delivery Method Room Air 10/24/18 09:20 10/24/18 09:28 10/24/18 09:29 Temperature Temperature Source Oral Sepsis Recent Fever Within 48 Hours Sepsis New/Unexplained Change in Mental Status Sepsis Action Taken by Nursing Pulse Rate 81 Pulse Rate [Apical] Pulse Rate from SpO2 Sensor 77 Pulse Rhythm Pulse Rhythm [Apical] Pulse Strength Pulse Strength [Apical] Respiratory Rate 20 Respiratory Effort / Characteristics Respiratory Depth Respiratory Pattern Blood Pressure Blood Pressure [Left Arm] Blood Pressure Mean Blood Pressure Mean [Left Arm] Blood Pressure Position [Left Arm] Pulse Oximetry 93 95 95 Oxygen Delivery Method Room Air Room Air 10/24/18 09:30 10/24/18 09:40 10/24/18 09:50 Temperature Temperature Source Sepsis Recent Fever Within 48 Hours Sepsis New/Unexplained Change in Mental Status Sepsis Action Taken by Nursing Pulse Rate 75 82 77 Pulse Rate [Apical] Pulse Rate from SpO2 Sensor 83 85 81 Pulse Rhythm Pulse Rhythm [Apical] Pulse Strength Pulse Strength [Apical] Respiratory Rate 18 17 20 Respiratory Effort / Characteristics Respiratory Depth Respiratory Pattern Blood Pressure 144/101 H Blood Pressure [Left Arm] Blood Pressure Mean 115 Blood Pressure Mean [Left Arm] Blood Pressure Position [Left Arm] Pulse Oximetry 97 96 94 Oxygen Delivery Method 10/24/18 10:00 10/24/18 10:10 10/24/18 10:20 Temperature Temperature Source Sepsis Recent Fever Within 48 Hours Sepsis New/Unexplained Change in Mental Status Sepsis Action Taken by Nursing Pulse Rate 80 81 82 Pulse Rate [Apical] Pulse Rate from SpO2 Sensor 79 85 Pulse Rhythm Pulse Rhythm [Apical] Pulse Strength Pulse Strength [Apical] Respiratory Rate 16 16 19 Respiratory Effort / Characteristics Respiratory Depth Respiratory Pattern Blood Pressure Blood Pressure [Left Arm] Blood Pressure Mean Blood Pressure Mean [Left Arm] Blood Pressure Position [Left Arm] Pulse Oximetry 95 97 Oxygen Delivery Method 10/24/18 10:30 10/24/18 10:40 10/24/18 10:50 Temperature Temperature Source Sepsis Recent Fever Within 48 Hours Sepsis New/Unexplained Change in Mental Status Sepsis Action Taken by Nursing Pulse Rate 85 79 78 Pulse Rate [Apical] Pulse Rate from SpO2 Sensor 79 79 78 Pulse Rhythm Pulse Rhythm [Apical] Pulse Strength Pulse Strength [Apical] Respiratory Rate 24 19 17 Respiratory Effort / Characteristics Respiratory Depth Respiratory Pattern Blood Pressure 150/87 H Blood Pressure [Left Arm] Blood Pressure Mean 108 Blood Pressure Mean [Left Arm] Blood Pressure Position [Left Arm] Pulse Oximetry 95 96 96 Oxygen Delivery Method 10/24/18 11:00 10/24/18 11:10 10/24/18 11:20 Temperature Temperature Source Sepsis Recent Fever Within 48 Hours Sepsis New/Unexplained Change in Mental Status Sepsis Action Taken by Nursing Pulse Rate 79 74 84 Pulse Rate [Apical] Pulse Rate from SpO2 Sensor 80 79 Pulse Rhythm Pulse Rhythm [Apical] Pulse Strength Pulse Strength [Apical] Respiratory Rate 18 24 21 Respiratory Effort / Characteristics Respiratory Depth Respiratory Pattern Blood Pressure 139/95 Blood Pressure [Left Arm] Blood Pressure Mean 109 Blood Pressure Mean [Left Arm] Blood Pressure Position [Left Arm] Pulse Oximetry 97 96 Oxygen Delivery Method 10/24/18 11:30 10/24/18 11:40 10/24/18 11:50 Temperature Temperature Source Sepsis Recent Fever Within 48 Hours Sepsis New/Unexplained Change in Mental Status Sepsis Action Taken by Nursing Pulse Rate 120 H 84 76 Pulse Rate [Apical] Pulse Rate from SpO2 Sensor 81 76 Pulse Rhythm Pulse Rhythm [Apical] Pulse Strength Pulse Strength [Apical] Respiratory Rate 18 20 21 Respiratory Effort / Characteristics Respiratory Depth Respiratory Pattern Blood Pressure Blood Pressure [Left Arm] Blood Pressure Mean Blood Pressure Mean [Left Arm] Blood Pressure Position [Left Arm] Pulse Oximetry 96 95 Oxygen Delivery Method 10/24/18 12:00 10/24/18 12:01 10/24/18 12:10 Temperature Temperature Source Sepsis Recent Fever Within 48 Hours Sepsis New/Unexplained Change in Mental Status Sepsis Action Taken by Nursing Pulse Rate 88 75 85 Pulse Rate [Apical] Pulse Rate from SpO2 Sensor 79 76 87 Pulse Rhythm Pulse Rhythm [Apical] Pulse Strength Pulse Strength [Apical] Respiratory Rate 22 23 28 H Respiratory Effort / Characteristics Respiratory Depth Respiratory Pattern Blood Pressure 174/99 H Blood Pressure [Left Arm] Blood Pressure Mean 124 Blood Pressure Mean [Left Arm] Blood Pressure Position [Left Arm] Pulse Oximetry 99 96 97 Oxygen Delivery Method 10/24/18 12:20 10/24/18 12:30 10/24/18 12:31 Temperature Temperature Source Sepsis Recent Fever Within 48 Hours Sepsis New/Unexplained Change in Mental Status Sepsis Action Taken by Nursing Pulse Rate 87 86 79 Pulse Rate [Apical] Pulse Rate from SpO2 Sensor 78 90 81 Pulse Rhythm Pulse Rhythm [Apical] Pulse Strength Pulse Strength [Apical] Respiratory Rate 32 H 23 24 Respiratory Effort / Characteristics Respiratory Depth Respiratory Pattern Blood Pressure 161/74 H Blood Pressure [Left Arm] Blood Pressure Mean 103 Blood Pressure Mean [Left Arm] Blood Pressure Position [Left Arm] Pulse Oximetry 98 96 98 Oxygen Delivery Method 10/24/18 12:40 10/24/18 12:50 10/24/18 13:00 Temperature Temperature Source Sepsis Recent Fever Within 48 Hours Sepsis New/Unexplained Change in Mental Status Sepsis Action Taken by Nursing Pulse Rate 71 77 84 Pulse Rate [Apical] Pulse Rate from SpO2 Sensor 76 82 90 Pulse Rhythm Pulse Rhythm [Apical] Pulse Strength Pulse Strength [Apical] Respiratory Rate 27 H 28 H 19 Respiratory Effort / Characteristics Respiratory Depth Respiratory Pattern Blood Pressure Blood Pressure [Left Arm] Blood Pressure Mean Blood Pressure Mean [Left Arm] Blood Pressure Position [Left Arm] Pulse Oximetry 92 96 94 Oxygen Delivery Method 10/24/18 13:01 10/24/18 13:10 10/24/18 13:20 Temperature Temperature Source Sepsis Recent Fever Within 48 Hours Sepsis New/Unexplained Change in Mental Status Sepsis Action Taken by Nursing Pulse Rate 82 76 90 Pulse Rate [Apical] Pulse Rate from SpO2 Sensor 86 78 83 Pulse Rhythm Pulse Rhythm [Apical] Pulse Strength Pulse Strength [Apical] Respiratory Rate 26 H 22 17 Respiratory Effort / Characteristics Respiratory Depth Respiratory Pattern Blood Pressure 143/73 H Blood Pressure [Left Arm] Blood Pressure Mean 96 Blood Pressure Mean [Left Arm] Blood Pressure Position [Left Arm] Pulse Oximetry 97 88 L 93 Oxygen Delivery Method 10/24/18 13:30 10/24/18 13:40 10/24/18 13:50 Temperature Temperature Source Sepsis Recent Fever Within 48 Hours Sepsis New/Unexplained Change in Mental Status Sepsis Action Taken by Nursing Pulse Rate 75 87 86 Pulse Rate [Apical] Pulse Rate from SpO2 Sensor 77 83 Pulse Rhythm Pulse Rhythm [Apical] Pulse Strength Pulse Strength [Apical] Respiratory Rate 18 14 16 Respiratory Effort / Characteristics Respiratory Depth Respiratory Pattern Blood Pressure 152/97 H Blood Pressure [Left Arm] Blood Pressure Mean 115 Blood Pressure Mean [Left Arm] Blood Pressure Position [Left Arm] Pulse Oximetry 96 96 Oxygen Delivery Method 10/24/18 14:00 10/24/18 14:10 10/24/18 14:20 Temperature Temperature Source Sepsis Recent Fever Within 48 Hours Sepsis New/Unexplained Change in Mental Status Sepsis Action Taken by Nursing Pulse Rate 80 77 85 Pulse Rate [Apical] Pulse Rate from SpO2 Sensor 83 77 85 Pulse Rhythm Pulse Rhythm [Apical] Pulse Strength Pulse Strength [Apical] Respiratory Rate 26 H 20 14 Respiratory Effort / Characteristics Respiratory Depth Respiratory Pattern Blood Pressure 149/80 H Blood Pressure [Left Arm] Blood Pressure Mean 103 Blood Pressure Mean [Left Arm] Blood Pressure Position [Left Arm] Pulse Oximetry 97 97 95 Oxygen Delivery Method 10/24/18 14:30 10/24/18 15:24 Temperature 36.5 C Temperature Source Oral Sepsis Recent Fever Within 48 Hours Sepsis New/Unexplained Change in Mental Status Sepsis Action Taken by Nursing Pulse Rate 73 Pulse Rate [Apical] 84 Pulse Rate from SpO2 Sensor 83 Pulse Rhythm Pulse Rhythm [Apical] Regular Pulse Strength Pulse Strength [Apical] Normal Respiratory Rate 21 18 Respiratory Effort / Characteristics Non-Labored Spontaneous Respiratory Depth Normal Respiratory Pattern Regular Blood Pressure 160/71 H Blood Pressure [Left Arm] 144/72 H Blood Pressure Mean 100 Blood Pressure Mean [Left Arm] 96 Blood Pressure Position [Left Arm] Sitting Pulse Oximetry 94 96 Oxygen Delivery Method Room Air General: Non-ill appearing older female in no acute distress. HEENT: Normal cephalic atraumatic. Pupils are equal round and reactive to light. Extraocular movements are intact. Oropharynx is pink with moist mucous membranes. No swelling of the mouth lips or tongue. Neck: Supple with a midline trachea. No meningeal signs or stiffness, no JVD or bruits. No Stridor. Chest: Clear to auscultation bilaterally. No wheezes or rhonchi. No increased work of breathing. Heart: Irregulalry irregular rhythm. Non-tachycardic. Abdomen: Soft nontender, nondistended without rebound guarding or rigidity. Extremities: No cyanosis clubbing or edema. No calf tenderness or assymetry Spine/Back. Non tender to palpation. No CVA tenderness Skin: Good turgor without rashes. Neurologic exam: Cranial nerves two through 12 are intact. Motor and sensation are intact and symmetrical throughout. Course 0920: Past medical records reviewed. The patient was evaluated in room C4, and a complete history and physical examination were performed. 1048: Upon reevaluation, the patient states her pain is diminished but still present. 1115: I reviewed the patient's case with Melissa Villafuerte PA-C, [facility] hospitalist. She will evaluate the patient for further management. 1117: Upon reevaluation, the patient is resting. I discussed test results. They verbalized agreement with the treatment plan. Consultations Consultation #1: Melissa Villafuerte PA-C, [facility] Time: 11:15 Administered Medications Nitroglycerin (Nitrostat) 0.4 mg SL UD PRN PRN Reason: Chest Pain Stop: 11/23/18 09:28 Last Admin: 10/24/18 09:51 Dose: 0.4 mg Documented by: [id number] Discontinued Medications Aspirin (Aspirin) 324 mg PO NOW STA Stop: 10/24/18 09:30 Last Admin: 10/24/18 09:51 Dose: 324 mg Documented by: [id number] Nitroglycerin (Nitro-Bid 2%) Confirm Administered Dose 18 inch .ROUTE .STK-MED ONE Stop: 10/24/18 13:15 Last Admin: 10/24/18 13:27 Dose: 1 inch Documented by: [id number] Medical Decision Making Differential Diagnosis Etiologies considered include Afib, acute coronary syndrome, CHF, electrolyte or metabolic abnormality. Medical Records Attestation: I reviewed the patient's medical records. Home Medications Current Medication List: was personally reviewed by me Laboratory Data Attestation: I reviewed the patient's lab results. Result diagrams: 10/24/18 09:40 10/24/18 09:40 Lab Results 10/24/18 10/24/18 10/24/18 Range/Units 09:33 09:40 09:40 WBC 7.10 (4.8-10.8) K/uL RBC 3.84 L (4.2-5.4) M/uL Hgb 12.2 (12.0-16.0) g/dL Hct 36.8 L (37-47) % MCV 95.8 (80-100) fL MCH 31.8 (25-34) pg MCHC 33.2 (32-36) g/dL RDW Std Deviation 55.0 H (36.4-46.3) fL RDW Coeff of Emeterio 15.8 H (11.5-14.5) % Plt Count 225 (130-400) K/uL MPV 10.0 (7.4-10.4) fL Immature Gran % (Auto) 0.1 % Neut % (Auto) 67.9 % Lymph % (Auto) 23.1 % [place] % (Auto) 6.8 % Eos % (Auto) 1.7 % Baso % (Auto) 0.4 % Immature Gran # (Auto) 0.01 (0.00-0.02) K/uL Neut # (Auto) 4.82 (1.4-6.5) K/uL Lymph # (Auto) 1.64 (1.2-3.4) K/uL [place] # (Auto) 0.48 (0.11-0.59) K/uL Eos # (Auto) 0.12 (0-0.5) K/uL Baso # (Auto) 0.03 (0-0.2) K/uL PT 11.1 (9.0-12.0) Seconds INR 1.1 (0.9-1.1) APTT 24.5 (21.0-31.0) Seconds PTT Ratio 0.9 Sodium (136-145) mmol/L Potassium (3.5-5.1) mmol/L Chloride (98-107) mmol/L Carbon Dioxide (21-32) mmol/L Anion Gap (3-11) BUN (7-18) mg/dl Creatinine (0.6-1.2) mg/dl Est Cr Clr Drug Dosing Est GFR ( Amer) Est GFR (Non-Af Amer) BUN/Creatinine Ratio (10-20) Glucose (70-99) mg/dl Calcium (8.5-10.1) mg/dl Total Bilirubin (0.2-1) mg/dl AST (15-37) U/L ALT (12-78) U/L Alkaline Phosphatase (45-117) U/L POC Troponin I < 0.03 (0-0.045) ng/ml Troponin I (0-0.045) ng/ml Total Protein (6.4-8.2) gm/dl Albumin (3.4-5.0) gm/dl Globulin (2.5-4.0) gm/dl Albumin/Globulin Ratio (0.9-2) Lipase (73-393) U/L 10/24/18 Range/Units 09:40 WBC (4.8-10.8) K/uL RBC (4.2-5.4) M/uL Hgb (12.0-16.0) g/dL Hct (37-47) % MCV (80-100) fL MCH (25-34) pg MCHC (32-36) g/dL RDW Std Deviation (36.4-46.3) fL RDW Coeff of Emeterio (11.5-14.5) % Plt Count (130-400) K/uL MPV (7.4-10.4) fL Immature Gran % (Auto) % Neut % (Auto) % Lymph % (Auto) % [place] % (Auto) % Eos % (Auto) % Baso % (Auto) % Immature Gran # (Auto) (0.00-0.02) K/uL Neut # (Auto) (1.4-6.5) K/uL Lymph # (Auto) (1.2-3.4) K/uL [place] # (Auto) (0.11-0.59) K/uL Eos # (Auto) (0-0.5) K/uL Baso # (Auto) (0-0.2) K/uL PT (9.0-12.0) Seconds INR (0.9-1.1) APTT (21.0-31.0) Seconds PTT Ratio Sodium 138 (136-145) mmol/L Potassium 4.1 (3.5-5.1) mmol/L Chloride 104 (98-107) mmol/L Carbon Dioxide 29 (21-32) mmol/L Anion Gap 5.0 (3-11) BUN 26 H (7-18) mg/dl Creatinine 1.43 H (0.6-1.2) mg/dl Est Cr Clr Drug Dosing Not Reportable Est GFR ( Amer) 38.1 Est GFR (Non-Af Amer) 32.8 BUN/Creatinine Ratio 18.5 (10-20) Glucose 114 H (70-99) mg/dl Calcium 8.6 (8.5-10.1) mg/dl Total Bilirubin 0.6 (0.2-1) mg/dl AST 14 L (15-37) U/L ALT 13 (12-78) U/L Alkaline Phosphatase 107 (45-117) U/L POC Troponin I (0-0.045) ng/ml Troponin I < 0.015 (0-0.045) ng/ml Total Protein 7.3 (6.4-8.2) gm/dl Albumin 3.4 (3.4-5.0) gm/dl Globulin 3.9 (2.5-4.0) gm/dl Albumin/Globulin Ratio 0.9 (0.9-2) Lipase 338 (73-393) U/L Imaging Data Radiologist's Impression: Radiology results as stated below per my review and the radiologist's interpretation: XR chest 1V portable CLINICAL HISTORY: chest pain COMPARISON STUDY: Chest radiograph October 18, 2018. FINDINGS: There is no pneumothorax or pleural effusion. Note is made of moderate cardiomegaly without evidence for pulmonary edema. There is no consolidation to suggest pneumonia. The appearance of the chest is unchanged. IMPRESSION: Moderate cardiomegaly. No acute cardiopulmonary findings. Electronically signed by: Forrest Brandon M.D. 10/24/2018 10:06 AM ECG Data Attestation: I personally reviewed and interpreted this ECG as follows: Indication: chest pain Rate (beats per minute): 83 Rhythm: atrial fibrillation Findings: no ST depression and no ST elevation Comparison ECG Date: from (10/18/18) Change: no significant change Blood Pressure Blood Pressure Findings: Elevated blood pressure Blood Pressure Disposition: further management by hospitalist [facility] Narrative This patient comes in as described above. She was placed in room C4. She is here for chest pain. She is seen less than a week ago for similar complaints. She is in chronic A. fib. they put her on anticoagulation but she did not tolerate it. she has had chest pressure and pain in her arm. she looks well on exam. She did take a baby aspirin and I gave her full strength aspirin here, chewable. She was given 3 nitro this may have helped the pain a little bit her EKG does not show any ischemic changes. there is chronic A. fib she does not appear to be in overt CHF. She has no acute electrolyte or metabolic abnormalities. Her troponin is not bumped. I do think she needs to be admitted/observe for further cardiac workup particularly the fact that she is not doing well as an outpatient. I have consulted the [facility] hospitalist to see her in the ER for these measures. Impression & Plan Chest pain, precordial, A-fib, Unstable angina, SOB (shortness of breath) Discharge Plan Visit Data *Final* Discharge Date/Time: 10/24/18 14:44 Chief Complaint: Cardiac Assessment Stated Complaint: CHEST PAIN HARD TO BREATH ED Provider: Shiraz Whalen Discharge Problem: Chest pain, precordial, A-fib, Unstable angina, SOB (shortness of breath) Patient Disposition: Admitted As Inpatient Discharge Instructions Interventions: ED Discharge Assessment Last Done: 10/24/18 14:44 The scribe's documentation has been prepared under my direction and personally reviewed by me in its entirety. I confirm that the note above accurately reflects all work, treatment, procedures, and medical decision making performed by me.
[2018-10-24] MEDS: NADOLOL 40 MG TAB PO SCH (20:05)
[2018-10-24] MEDS: APIXABAN 2.5 MG TAB PO SCH (20:05)
[2018-10-24] MEDS: NITROGLYCERIN 2% OINTMENT 30GM TUBE EXT SCH (20:06)
[2018-10-25] MEDS: NITROGLYCERIN 2% OINTMENT 30GM TUBE EXT SCH ×2 (02:05→08:26)
[2018-10-25 03:18] LABS: Hematocrit (blood only) 36.5 % (37-47); Mean Corpuscular Hgb Conc 32.9 g/dL (32-36); Mean Corpuscular Volume 95.5 fL (80-100); Mean Platelet Volume 9.2 fL (7.4-10.4); Platelet Count 167 K/uL (130-400); RDW Coefficient of Variation 15.6 % (11.5-14.5); RDW Standard Deviation 54.1 fL (36.4-46.3); Red Blood Count 3.82 M/uL (4.2-5.4); White Blood Count 6.59 K/uL (4.8-10.8)
[2018-10-25 03:33] LABS: BUN Creatinine Ratio 16.5 (10-20); Blood Urea Nitrogen 26 mg/dl (7-18); Calcium 8.7 mg/dl (8.5-10.1); Carbon Dioxide 31 mmol/L (21-32); Chloride 105 mmol/L (98-107); Est GFR (African American) 33.5; Est GFR (Non-African American) 28.9; Glucose 114 mg/dl (70-99); Potassium 3.8 mmol/L (3.5-5.1); Sodium 140 mmol/L (136-145)
[2018-10-25 03:38] LABS: Chol HDL Ratio 5; Cholesterol 179 mg/dl (0-200); HDL Cholesterol 39 mg/dl; LDL Cholesterol Calculated 116 mg/dl; Triglycerides 121 mg/dl (0-150); Troponin I < 0.015 ng/ml (0-0.045); VLDL Cholesterol 24 mg/dl
[2018-10-25 06:24] LABS: Estimated Average Glucose 123 mg/dl; Hemoglobin A1C 5.9 % (4.5-5.6)
--- NOTE | 2018-10-25 07:12 | Anesthesiology Consultation ---
Date of Service October 25, 2018 Assessment & Plan Chart Review Chart Review: Acceptable Risk for Surgery and Patient NOT seen in Pre Admission Testing Consults Requested none ASA ASA4 Proposed Anesthesia Anesthesia Type: General History Surgery Operation Date: 10/25/18 07:30 Proposed Procedures p Cardioversion Asphalt Spreader w/Anesthesia - Krish Mcdowell MD Height/Weight Height: 5 ft 2 in Weight: 83.5 kg Allergies Allergy/AdvReac Type Severity Reaction Status Date / Time atorvastatin AdvReac Unknown unknown Verified 10/24/18 11:12 capsaicin AdvReac Unknown unknown Verified 10/24/18 11:12 diclofenac AdvReac Unknown unknown Verified 10/24/18 11:12 Diclopak AdvReac Unknown unknown Verified 07/25/17 13:30 levofloxacin AdvReac Unknown unknown Verified 10/24/18 11:12 rofecoxib AdvReac Unknown unknown Verified 10/24/18 11:12 Medications Home Medications Medication Instructions Recorded Confirmed Last Taken allopurinol 100 mg PO DAILY 10/18/18 10/24/18 10/24/18 apixaban [Eliquis] 2.5 mg PO BID 10/18/18 10/24/18 10/24/18 aspirin [Aspirin Low Dose] 81 mg PO DAILY 10/18/18 10/24/18 10/24/18 hydrochlorothiazide 25 mg PO DAILY 10/18/18 10/24/18 10/24/18 nadolol 40 mg PO BID 10/18/18 10/24/18 10/24/18 nitroglycerin 0.4 mg SUBLINGUAL DIRECTED 10/18/18 10/24/18 Unknown pantoprazole 40 mg PO DAILY 10/18/18 10/24/18 10/24/18 thyroid (pork) [[place] Thyroid] 90 mg PO DAILY 10/18/18 10/24/18 10/24/18 vit C,C-Fq-ecwcz-lutein-zeaxan 1 tab PO AMPM 10/24/18 10/24/18 10/24/18 [PreserVision AREDS-2] Active Medications Generic Name Dose Route Start Last Admin Trade Name Freq PRN Reason Stop Dose Admin Apixaban 2.5 mg 10/24/18 21:00 10/24/18 20:05 Eliquis PO 11/23/18 20:59 2.5 mg BID TAD Administration Nadolol 40 mg 10/24/18 21:00 10/24/18 20:05 Corgard PO 11/23/18 20:59 40 mg BID TAD Administration Nitroglycerin 0.4 mg 10/24/18 09:29 10/24/18 09:51 Nitrostat SL 11/23/18 09:28 0.4 mg UD PRN Administration Chest Pain Nitroglycerin 1 inch 10/24/18 20:00 10/25/18 02:05 Nitro-Bid 2% EXT 11/23/18 19:59 1 inch Q6H TAD Administration Past Medical History Medical History History of PSVT (paroxysmal supraventricular tachycardia) s/p ablation 12/2016 CAD (coronary artery disease) S/P Cardiac catheterization on 12/22/16: 12/22/16: Severe 2 vessel CAD ( 70-80% focal mid LAD stenosis, 70% ostial circumflex stenosis) Gout (Chronic) GERD (gastroesophageal reflux disease) (Chronic) HTN (hypertension) (Chronic) Hypothyroidism (Chronic) Atrial fibrillation (Acute) History of DVT (deep vein thrombosis) (Resolved) Premature atrial contractions (Chronic) Past Family History Family History Other Family history non-contributory Past Surgical History Surgical History 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 History of cholecystectomy (Chronic) History of appendectomy (Chronic) History of cardiac cath (Chronic) Femur fracture, left (Chronic) "s/p repair" H/O: hysterectomy (Chronic) Past Anesthesia History No Hx of Anesthesia Complications and No Family Hx of Anesthesia Complications History of PONV No Motion Sickness Screening History of Motion Sickness: No Social History Smoking Status: Never smoker Hx Alcohol Use: No Hx Substance Use: No Exercise / Class Metabolic Activity III < 4 Walking/Shop/Light housework Physical Exam Vital Signs Last Vital Signs Temp 36.5 C 10/25/18 03:37 Pulse 76 10/25/18 03:37 Resp 18 10/25/18 03:37 BP 110/68 10/25/18 03:37 Pulse Ox 96 10/25/18 03:37 Testing Electrocardiogram Date: 10/25/18 Findings: + AFIB @ (at 74) Chest X-Ray Date: 10/24/18 Findings: + NAD and + cardiomegaly Echocardiogram Date: 10/24/18 EF: 55 LV Function: normal RWMA: + none mild tr Laboratory Results 10/25/18 03:09 10/25/18 03:09 PT 11.1 Seconds (9.0-12.0) 10/24/18 09:40 INR 1.1 (0.9-1.1) 10/24/18 09:40 APTT 24.5 Seconds (21.0-31.0) 10/24/18 09:40 Hemoglobin A1c 5.9 % (4.5-5.6) H 10/25/18 03:09
--- NOTE | 2018-10-25 07:40 | History & Physical Bridge Note ---
Date of Service October 25, 2018 History & Physical Bridge Note I have examined the patient, reviewed the History & Physical and in the interval since the performance of the History & Physical I have noted the following changes of clinical significance: no changes noted
--- NOTE | 2018-10-25 07:47 | Cardioversion ---
Date of Service October 25, 2018 Electrical Cardioversion Rpt Electrical Cardioversion Report The patient was brought to the laboratory being NPO after midnight and was identified in the laboratory, connected to the recording apparatus including electrocardiographic monitoring, noninvasive blood pressure monitoring and pulse oximetry. Anteroposterior patch electrodes were placed. The patient was anesthetized by the anesthesia department. Once adequate anesthesia was obtained a synchronized biphasic shock was delivered using 200 J, this converted the rhythm to a regular somewhat rapid rhythm that did not appear to be sinus, therefore a 360 J biphasic shock was delivered with conversion to a sinus rhythm. The patient awoke from the anesthetic without sequela, will be observed briefly and then discharged.
--- NOTE | 2018-10-25 08:17 | Anesthesiology Progress Note ---
Date of Service October 25, 2018 Anesthesia Post Procedure Vital Signs Vital Signs: Temp Pulse Pulse Pulse Resp BP BP 10/25/18 07:56 36.6 C 83 20 162/75 H 10/25/18 03:37 36.5 C 76 18 110/68 10/24/18 23:32 36.5 C 58 L 20 131/64 10/24/18 23:27 81 10/24/18 19:33 36.8 C 84 20 140/68 10/24/18 15:24 36.5 C 84 18 144/72 H 10/24/18 14:30 73 21 160/71 H 10/24/18 14:20 85 14 10/24/18 14:10 77 20 10/24/18 14:00 80 26 H 149/80 H 10/24/18 13:50 86 16 10/24/18 13:40 87 14 10/24/18 13:30 75 18 152/97 H 10/24/18 13:20 90 17 10/24/18 13:10 76 22 10/24/18 13:01 82 26 H 143/73 H 10/24/18 13:00 84 19 10/24/18 12:50 77 28 H 10/24/18 12:40 71 27 H 10/24/18 12:31 79 24 161/74 H 10/24/18 12:30 86 23 10/24/18 12:20 87 32 H 10/24/18 12:10 85 28 H 10/24/18 12:01 75 23 174/99 H 10/24/18 12:00 88 22 10/24/18 11:50 76 21 10/24/18 11:40 84 20 10/24/18 11:30 120 H 18 10/24/18 11:20 84 21 10/24/18 11:10 74 24 10/24/18 11:00 79 18 139/95 10/24/18 10:50 78 17 10/24/18 10:40 79 19 10/24/18 10:30 85 24 150/87 H 10/24/18 10:20 82 19 10/24/18 10:10 81 16 10/24/18 10:00 80 16 10/24/18 09:50 77 20 10/24/18 09:40 82 17 10/24/18 09:30 75 18 144/101 H 10/24/18 09:29 10/24/18 09:28 10/24/18 09:20 81 20 10/24/18 09:17 84 26 H 10/24/18 09:14 77 25 H 175/92 H 10/24/18 08:59 36.8 C 79 18 156/96 H Pulse Ox 10/25/18 07:56 94 10/25/18 03:37 96 10/24/18 23:32 94 10/24/18 23:27 10/24/18 19:33 93 10/24/18 15:24 96 10/24/18 14:30 94 10/24/18 14:20 95 10/24/18 14:10 97 10/24/18 14:00 97 10/24/18 13:50 96 10/24/18 13:40 10/24/18 13:30 96 10/24/18 13:20 93 10/24/18 13:10 88 L 10/24/18 13:01 97 10/24/18 13:00 94 10/24/18 12:50 96 10/24/18 12:40 92 10/24/18 12:31 98 10/24/18 12:30 96 10/24/18 12:20 98 10/24/18 12:10 97 10/24/18 12:01 96 10/24/18 12:00 99 10/24/18 11:50 95 10/24/18 11:40 96 10/24/18 11:30 10/24/18 11:20 10/24/18 11:10 96 10/24/18 11:00 97 10/24/18 10:50 96 10/24/18 10:40 96 10/24/18 10:30 95 10/24/18 10:20 97 10/24/18 10:10 95 10/24/18 10:00 10/24/18 09:50 94 10/24/18 09:40 96 10/24/18 09:30 97 10/24/18 09:29 95 10/24/18 09:28 95 10/24/18 09:20 93 10/24/18 09:17 10/24/18 09:14 10/24/18 08:59 95 Pain Intensity Left Chest: Pain Intensity: 3 Notes Mental Status: alert / awake / arousable Patient Amnestic to Procedure: Yes Nausea / Vomiting: adequately controlled Pain: adequately controlled Airway Patency, RR, SpO2: stable & adequate BP & HR: stable & adequate Hydration State: stable & adequate Anesthetic Complications: no major complications apparent
[2018-10-25] MEDS: NADOLOL 40 MG TAB PO SCH (08:28)
[2018-10-25] MEDS: APIXABAN 2.5 MG TAB PO SCH (08:28)
[2018-10-25] MEDS ORDERED: ALLOPURINOL 100 MG TAB PO SCH (09:00)
[2018-10-25] MEDS ORDERED: ASPIRIN 81 MG ECTAB PO SCH (09:00)
[2018-10-25] MEDS ORDERED: PANTOprazole 40 MG TAB PO SCH (09:00)
[2018-10-25] MEDS ORDERED: ARMOUR THYROID 30 MG TAB PO SCH (09:00)
[2018-10-25] MEDS ORDERED: CEROVITE ADV FORMULA TAB PO SCH (09:00)
[2018-10-25] MEDS ORDERED: hydroCHLOROthiazide 25 MG TAB PO SCH (09:00)
--- NOTE | 2018-10-25 10:36 | Hospitalist Progress Note ---
Date of Service October 25, 2018 Assessment & Plan (1) Atypical chest pain: Acute coronary syndrome ruled out [facility] Associate consulted-Dr. Mcdowell Suspect symptoms of chest pain palpitations are secondary to her atrial fibrillation October 25, 2018: Status post cardioversion Patient successfully converted to sinus rhythm Symptoms resolved Recommend to continue usual cardiac medications Follow-up with core piler in 2 weeks (2) HTN (hypertension): Blood pressure stable Continue nadolol, HCTZ (3) CAD (coronary artery disease): -patient with severe 2 vessel disease, last cath 12/2016 revealed: Severe 2 v essel CAD ( 70-80% focal mid LAD stenosis, 70% ostial circumflex stenosis) -on ASA and nadolol, allergy to atorvastatin (4) Atrial fibrillation: Status post cardioversion Continue with nadolol and Eliquis (5) CKD (chronic kidney disease) stage 3, GFR 30-59 ml/min: stable (6) Hypothyroidism: -continue armour thyroid -TSH 10/18/18 2.3 (7) GERD (gastroesophageal reflux disease): -continue PPI (8) DVT prophylaxis: -continue apixban Disposition:d/c home today Follow-up with primary care physician in 3-5 days Follow-up with core piler in 2 weeks Subjective Follow-up for chest pain Status post cardioversion today Converted to sinus rhythm Patient seen resting up in bed, just had breakfast, comfortable, in good spirits States she feels much better overall No chest pain, shortness of breath, dizziness, headache No palpitations States she is ready and would like to go home today Physical Exam Vital Signs (Past 24 Hours): Last Vital Signs Temp 36.4 C L 10/25/18 08:05 Pulse 60 10/25/18 08:05 Resp 16 10/25/18 08:05 BP 127/72 10/25/18 08:05 Pulse Ox 97 10/25/18 08:05 Physical Exam: General- oriented x 3, not in distress, speaks in sentences with no effort or accessory muscle use Eyes- anicteric Neck- no JVD Lungs- clear breath sounds bilaterally, no rales/wheezes Heart- normal rate, regular rhythm; no murmurs Abdomen- normal bowel sounds, nondistended, soft, nontender Extremities- no pretibial edema, no calf tenderness Neuro- alert, oriented x 3; no gross focal neurologic deficits Skin- warm & dry Results & Data Laboratory Results Laboratory Results - last 24 hr 10/24/18 10/24/18 10/24/18 09:40 15:33 20:56 WBC RBC Hgb Hct MCV MCH MCHC RDW Std Deviation RDW Coeff of Emeterio Plt Count MPV ESR 40 H Sodium Potassium Chloride Carbon Dioxide Anion Gap BUN Creatinine Est Cr Clr Drug Dosing Est GFR ( Amer) Est GFR (Non-Af Amer) BUN/Creatinine Ratio Glucose Estimat Average Glucose Hemoglobin A1c Calcium Troponin I < 0.015 < 0.015 Triglycerides Cholesterol LDL Cholesterol, Calc VLDL Cholesterol, Calc HDL Cholesterol Cholesterol/HDL Ratio 10/25/18 10/25/18 10/25/18 03:09 03:09 03:09 WBC 6.59 RBC 3.82 L Hgb 12.0 Hct 36.5 L MCV 95.5 MCH 31.4 MCHC 32.9 RDW Std Deviation 54.1 H RDW Coeff of Emeterio 15.6 H Plt Count 167 MPV 9.2 ESR Sodium 140 Potassium 3.8 Chloride 105 Carbon Dioxide 31 Anion Gap 4.0 BUN 26 H Creatinine 1.59 H Est Cr Clr Drug Dosing 25.0 Est GFR ( Amer) 33.5 Est GFR (Non-Af Amer) 28.9 BUN/Creatinine Ratio 16.5 Glucose 114 H Estimat Average Glucose 123 Hemoglobin A1c 5.9 H Calcium 8.7 Troponin I < 0.015 Triglycerides 121 Cholesterol 179 LDL Cholesterol, Calc 116 VLDL Cholesterol, Calc 24 HDL Cholesterol 39 Cholesterol/HDL Ratio 5 (1) HTN (hypertension) Hypertension type: essential hypertension Qualified Code(s): I10 - Essential (primary) hypertension (2) CAD (coronary artery disease) Coronary Disease-Associated Artery/Lesion type: [place] artery Tribe vs. transplanted heart: [place] heart Associated angina: with stable angina Qualified Code(s): I25.118 - Atherosclerotic heart disease of [place] coronary artery with other forms of angina pectoris (3) Atrial fibrillation Atrial fibrillation type: chronic Qualified Code(s): I48.2 - Chronic atrial fibrillation (4) Hypothyroidism Hypothyroidism type: unspecified Qualified Code(s): E03.9 - Hypothyroidism, unspecified (5) GERD (gastroesophageal reflux disease) Esophagitis presence: without esophagitis Qualified Code(s): K21.9 - Gastro- esophageal reflux disease without esophagitis
--- NOTE | 2018-10-25 12:14 | Discharge Summary ---
Date of Service October 25, 2018 Admission HPI Per Admitting Provider This is a 88 year old female with significant pmh of chronic afib on eliquis, CAD, HTN, hypothyroidism, hx of DVT, GERD, Gout who presents to [facility] with chest heaviness x 1 day. Pt recently seen in ED 10/18/18 due to similar symptoms, chest heaviness that radiated to LUE with numbness and tingling. Troponin were negative x 2. Sx improved with nitro. Cardiology contacted which recommended medication management with ranexa vs stress test and cath. Pt last had cath 12/2016 which revealed severe 2 vessel CAD. It was felt pt may benefit best from medical management vs high risk PCI intervention as patient didn't want a cardiac cath. She was discharged to home with ranexa, took 3 doses but did not tolerate. [place] made her dizzy and weak so she stopped. She had been feeling well up until last evening when she developed substernal chest heaviness that was constant, but this time did not radiate to L arm. Otherwise felt similar. Associated with AGEE. Sx waxed and waned in severity and was alleviated with nitro. Was not affected my meals or movement. When she woke up this morning symptoms still present and opted to present to ED. Currently she denies f/c/s, dizziness, lightheaded, cough, URI sx, sob at rest, n/v/d, change in bowel or bladder habits. No weight loss or weight gain. Appetite has been good. She doesn't monitor her bp at home, but was in doctor office yesterday and it was 132/78. Daughter is at bedside. Admission Exam Per Admitting Provider Vital Signs (Past 24 Hours): Last Vital Signs Temp 36.8 C 10/24/18 08:59 Pulse 79 10/24/18 08:59 Resp 18 10/24/18 08:59 BP 156/96 H 10/24/18 08:59 Pulse Ox 95 10/24/18 09:29 Physical Exam: Gen: WD/WN, F, appears younger than stated age, NAD, sitting up in bed, pleasant, conversing easily Head: Normocephalic, Atraumatic Eyes: Sclera normal, no conjunctival injection, PERRLA, EOMI ENT: +hearing assist device bilaterally, normal pharynx, mucous membranes moist, + dentures Neck: supple, no adenopathy, No JVD, no bruit, Resp: Clear to auscultation b/l, no wheeze, rales, rhonchi. Normal insp/exp effort, no accessory muscle use CV: Regular rate, regular rhythm, no murmur, rub, gallop, or ectopy Abd: +BS x 4, soft, nontender, nondistended Musculoskeletal: moves extremities active rom x 4, strength intact, good assistant manager bilingual strength Extremities: No edema bilaterally Skin: warm, moist, no rash, negative turgor, cap refill < 2sec Neuro: Alert and oriented x 3, speech normal, good mood/affect, cran nerve 2-12 intact grossly : deferred Principal Diagnosis CHEST PAIN SECONDARY TO ATRIAL FIBRILLATION Discharge Exam Vital Signs (Past 24 Hours): Last Vital Signs Temp 36.4 C L 10/25/18 08:05 Pulse 60 10/25/18 08:05 Resp 16 10/25/18 08:05 BP 127/72 10/25/18 08:05 Pulse Ox 97 10/25/18 08:05 Physical Exam: General- oriented x 3, not in distress, speaks in sentences with no effort or accessory muscle use Eyes- anicteric Neck- no JVD Lungs- clear breath sounds bilaterally, no rales/wheezes Heart- normal rate, regular rhythm; no murmurs Abdomen- normal bowel sounds, nondistended, soft, nontender Extremities- no pretibial edema, no calf tenderness Neuro- alert, oriented x 3; no gross focal neurologic deficits Skin- warm & dry Discharge Data Allergies Allergy/AdvReac Type Severity Reaction Status Date / Time atorvastatin AdvReac Unknown unknown Verified 10/24/18 11:12 capsaicin AdvReac Unknown unknown Verified 10/24/18 11:12 diclofenac AdvReac Unknown unknown Verified 10/24/18 11:12 Diclopak AdvReac Unknown unknown Verified 07/25/17 13:30 levofloxacin AdvReac Unknown unknown Verified 10/24/18 11:12 rofecoxib AdvReac Unknown unknown Verified 10/24/18 11:12 Consultations 10/24/18 11:13 ED Decision to Admit Stat 10/24/18 12:10 Consult Cardiology Routine 10/24/18 16:14 Consult Anesthesiology Routine Procedures Performed Operation Date: 10/25/18 07:30 Actual Procedures p Cardioversion - Krish Mcdowell MD Hospital Course (1) Atypical chest pain: Acute coronary syndrome ruled out Shake Cutter consulted-Dr. Mcdowell Suspect symptoms of chest pain palpitations are secondary to her atrial fibrillation October 25, 2018: Status post cardioversion Patient successfully converted to sinus rhythm Symptoms resolved Recommend to continue usual cardiac medications Follow-up with publication specialist in 2 weeks (2) HTN (hypertension): Blood pressure stable Continue nadolol, HCTZ (3) CAD (coronary artery disease): -patient with severe 2 vessel disease, last cath 12/2016 revealed: Severe 2 vessel CAD ( 70-80% focal mid LAD stenosis, 70% ostial circumflex stenosis) -on ASA and nadolol, allergy to atorvastatin (4) Atrial fibrillation: Status post cardioversion Continue with nadolol and Eliquis (5) CKD (chronic kidney disease) stage 3, GFR 30-59 ml/min: stable (6) Hypothyroidism: -continue armour thyroid -TSH 10/18/18 2.3 (7) GERD (gastroesophageal reflux disease): -continue PPI (8) DVT prophylaxis: -continue apixban Disposition:d/c home today Follow-up with primary care physician in 3-5 days Follow-up with publication specialist in 2 weeks Total Time Total Time Spent Total Time Spent (In Minutes): 30 MINS Discharge Plan Discharge Items Patient Disposition: Home - Self-Care Reason For Visit: CHEST PAIN Discharge Diagnosis: Chest pain Condition: Good Discharge Goals: Diagnostic testing and Therapeutic intervention Activity: As commented below Activity Comment: Resume activity gradually as tolerated; no heavy exertion Lifting: Wait until after follow-up appointment Exercise/Sports: Wait until after follow-up appointment Driving/Machine Use Comment: No driving until reevaluated by primary care physician Non-emergency contact: Primary Care Provider and Shake Cutter Call non-emergency contact if: you have any medication questions and you have a fever Follow-up/Referrals: Marzena Viveros MD [Primary Care Provider] - Diet: Heart Healthy Addtl Provider Instructions: Please follow-up with your primary care physician in 3-5 days. Follow-up with publication specialist in 2 weeks. Call primary care physician or publication specialist, or return to the ER immediately if with recurrence of symptoms. Prescriptions: Continued allopurinol 100 mg tablet 100 mg PO DAILY RF: 0 aspirin [Aspirin Low Dose] 81 mg Tablet,Delayed Release (Dr/Ec) 81 mg PO DAILY RF: 0 pantoprazole 40 mg tablet,delayed release (DR/EC) 40 mg PO DAILY RF: 0 nitroglycerin 0.4 mg Tablet, Sublingual 0.4 mg Sublingual DIRECTED RF: 0 nadolol 40 mg tablet 40 mg PO BID RF: 0 hydrochlorothiazide 25 mg tablet 25 mg PO DAILY RF: 0 thyroid (pork) [[place] Thyroid] 90 mg tablet 90 mg PO DAILY RF: 0 Eliquis 2.5 mg tablet 2.5 mg PO BID RF: 0 PreserVision AREDS-2 [id number] Capsule 1 tab PO AMPM RF: 0 Stand-Alone Forms: [facility] Discharge Orders: Discharge Order (Routine); Ordered 10/25/18 Ordered By: Jacob Brady Admission Data Admit Date/Time: 10/24/18 12:03 Attending Provider: Jacob Brady Admit Provider: Severino Miranda Primary Care Provider: Marzena Viveros Other Providers: Severino Miranda ; Yomaira Laird ; Cristina Paula ; Brittany Woodward ; Sandy Flores ; Radhika Bower ; Sylvie Pate ; Alexandru Mas ; Abdiaziz Guy ; Jagjit Blevins ; Arleth Blevins ; Shiraz Lazo ; Erna Cuevas ; Abram Romero James D ; Ze Bah ; Jhonatan [place] ; Rylan Mckinley ; Ina Escoto ; Morris Drake ; Nadine Bonds ; Alvina Drake ; Torrey Blake ; Sindy Mcdonald ; Boris Carter ; Dariana Obando ; Alba Corea ; George Dutta ; Gracie Lane ; Monika Merritt ; Sheryl Ballard ; Italia Maldonado ; Fbaian Maldonado V ; Jw Crow ; Brittany Camejo ; Kris Rajput ; Clare Barroso V ; Jacob Knight ; Ciera Chong ; Marie Vaughn ; Cammie Camejo ; Fabian Levine ; Jean Claude Love ; And Artem rodriguez ; Maria Elena Ambrocio ; Sheryl Bee ; Abdiaziz Richter ; Anabela Panchal ; Heath Mckinley ; Kimmy Burris ; Tom Akbar ; Krish Mcdowell Service: Telemetry Medical Other Interventions: Discharge Summary Assessment (RN) Last Done: 10/25/18 12:54 DC Date/Time DO NOT enter until pt leaves facility: 10/25/18 12:55
[2018-10-25 12:18] VITALS: BP 164/78; TEMP 98.1; O2SAT 93
[2018-10-25 12:30] VITALS: PULSE 84
== END 2018-10-25 12:55 | disposition home or self-care (01) ==
LOC: 2N 08:55 → ED 08:55 → 2N 14:44